=== PATIENT | female | born 1955 | race Caucasian/White ===

== ENCOUNTER → 2019-07-07 | Outpatient (CLI) | payer BC ==
--- NOTE | 2019-07-08 13:35 | MM ---
Reason for exam: screening (asymptomatic). Last mammogram was performed 1 year and 10 months ago. History: Patient is postmenopausal. Physical Findings: A clinical breast exam by your physician is recommended on an annual basis and results should be correlated with mammographic findings. MG Screening Mammo w CAD Bilateral CC and MLO view(s) were taken. Prior study comparison: August 26, 2017, mammogram, performed at [facility]. January 08, 2014, mammogram, performed at [facility]. The breast tissue is heterogeneously dense. This may lower the sensitivity of mammography. No suspicious abnormality in the right breast. Left upper outer quadrant architectural distortion 5-5.5cm from nipple. ASSESSMENT: Incomplete: need additional imaging evaluation, BI-RAD 0 RECOMMENDATION: Special view mammogram of the left breast. If lesion persists on supplemental views, image directed ultrasound is recommended. [facility] will attempt to contact patient to return for supplemental views and ultrasound if indicated.
== END | disposition home or self-care (01) ==
LOC: RADMAMWWP 14:24
PROVIDERS: ATTEND Family Medicine
DX: Z12.31 Encounter for screening mammogram for malignant neoplasm of breast (principal)
CPT/HCPCS: 77067

== ENCOUNTER → 2022-07-13 | Outpatient (CLI) | payer BC ==
--- NOTE | 2022-07-13 14:04 | CTL ---
EXAMINATION TYPE: CT Low Dose Lung DATE OF EXAM ORDERED: 07/13/2022 HISTORY: Lung cancer screening TECHNIQUE: CT DLP: 52.[address] CTDI: 1.6 mGy Automated exposure control for dose reduction was used. Low-dose technique was utilized without contr ast. Low dose computed tomography scan was performed through the chest at 1 mm thick sections and rec onstructed images in multiple planes at 1 mm and 5 mm thick sections. COMPARISON: None CT DIAGNOSTIC QUALITY: Satisfactory Findings: There are marked emphysematous changes with marked honeycombing throughout the lungs predominantly in the lower lobes and subpleural parenchymal regions. There is no evidence of acute cardiopulmonary di sease with airspace consolidation. There is marked traction bronchiectasis. There are no suspicious l joaquín masses or nodules. There is no pleural effusion or pneumothorax. The great vessels chest are normal there is no mediastinal, hilar or axillary adenopathy. Limited evaluation of the upper abdomen reveals no gross abnormalities. No focal osseous lesions are seen. IMPRESSION: 1. Lung RADS category 1 negative. No suspicious lung masses or nodules. Continue routine screening ye ila intervals. 2. Marked emphysematous changes with marked honeycomb lung and bronchiectasis. 3. No acute cardiopulmonary disease.
== END | disposition home or self-care (01) ==
LOC: RADCTMAIN 12:41
PROVIDERS: ATTEND Family Medicine
DX: Z12.2 Encounter for screening for malignant neoplasm of respiratory organs (principal); J43.9 Emphysema, unspecified; J47.9 Bronchiectasis, uncomplicated; F17.210 Nicotine dependence, cigarettes, uncomplicated
CPT/HCPCS: 71271

== ENCOUNTER 2022-09-12 10:48 | Day surgery (SDC) | payer BC ==
[2022-09-10 18:11] VITALS: BMI 19.1
[~2022-09-12 10:48] MED LIST: LACTATED RINGERS 1,000 ML IV SCH; LIDOCAINE 1% (10MG/ML) FOR IV START INTRADERMA PRN
[2022-09-12 11:05] VITALS: RESP 16
[2022-09-12] MEDS ORDERED: PROPOFOL 10 MG/ML 20 ML VIAL IV ONE (12:02)
[2022-09-12] MEDS ORDERED: LIDOCAINE 2% INJ 20 MG/ML (2 ML VIAL) ONE (12:02)
--- NOTE | 2022-09-12 12:14 | P.PCN ---
Date of Procedure: 09/12/22 Procedure(s) Performed: BRIEF HISTORY: Patient is a 66-year-old, pleasant, white female scheduled for an upper endoscopy as a part of evaluation of severe epigastric pain and heartburn for the last 2 months duration. She lost 15 pounds since onset of the symptoms.. PROCEDURE PERFORMED: Esophagogastroduodenoscopy with biopsy. PREOPERATIVE DIAGNOSIS: Severe epigastric pain/heartburn and weight loss of 2 months. IV sedation per anesthesia. PROCEDURE: After informed consent was obtained, the patient was brought into the endoscopy unit. IV sedation was administered by Anesthesia under continuous monitoring. Initially the Olympus GIF-140 video endoscope was inserted into the mouth. Esophagus intubated without any difficulty. It was gradually advanced into the stomach and duodenum and carefully examined. The bulb and the second part of the duodenum appeared normal. Biopsies were done from the duodenum to rule out celiac disease. The scope at this time was withdrawn to the stomach, adequately insufflated with air, and upon careful examination, mucosa of the antrum, and mild diffuse gastritis and biopsies were done from this area. Mucosa of the body, cardia and the fundus appeared normal. The scope was then withdrawn into the esophagus. Small hiatal hernia noted. The GE junction was located at 39 cm from the incisors. There were linear erosions in the distal esophagus along with once a fissure ulceration consistent with LA grade C reflux esophagitis. The rest of esophagus appeared normal and the patient tolerated the procedure well. IMPRESSION: 1. Linear erosions and ulcerations in the distal esophagus consistent with LA grade C reflux esophagitis. 2. Small hiatal hernia 3.. Mild antral gastritis RECOMMENDATIONS: The findings of this examination were discussed with the as well as a family. She was advised to follow with the biopsy results. In the meantime recommend that she increase omeprazole to 20 mg twice daily and follow antireflux measures. She will be seen in office in 6 weeks
[2022-09-12 12:45] VITALS: BP 108/70; PULSE 110
== END 2022-09-12 13:07 | disposition home or self-care (01) ==
LOC: ORWHC2ENDO 10:48
PROVIDERS: ATTEND Internal Medicine Gastroenterology
DX: K29.50 Unspecified chronic gastritis without bleeding (principal); K21.9 Gastro-esophageal reflux disease without esophagitis; K22.10 Ulcer of esophagus without bleeding; K44.9 Diaphragmatic hernia without obstruction or gangrene; I10 Essential (primary) hypertension; E78.5 Hyperlipidemia, unspecified; J44.9 Chronic obstructive pulmonary disease, unspecified; F17.210 Nicotine dependence, cigarettes, uncomplicated; E07.9 Disorder of thyroid, unspecified; Z79.899 Other long term (current) drug therapy; Z79.890 Hormone replacement therapy; Z98.51 Tubal ligation status
CPT/HCPCS: 88305; 88312; 43239; J2704; J2001

== ENCOUNTER 2023-03-02 15:39 | Inpatient (IN) | payer BC, MEDICARE ==
[2023-03-02] MEDS ORDERED: SODIUM CHLORIDE 0.9% 1,000 ML IV STA ×2 (16:17→18:13)
[2023-03-02] MEDS ORDERED: ONDANSETRON 4 MG/2 ML VIAL IVP STA (16:17)
[2023-03-02] MEDS ORDERED: PANTOPRAZOLE 40 MG/10 ML VIAL IVP STA (16:17)
[2023-03-02] MEDS ORDERED: DICYCLOMINE 10 MG CAP PO STA (16:17)
[2023-03-02 17:12] LABS: Basophils % (A) 0 %; Eosinophils # (A) 0.1 k/uL (0-0.7); Eosinophils % (A) 2 %; HCT 41.5 % (34.0-46.0); HGB 13.7 gm/dL (11.4-16.0); Lymphocytes # (A) 1.5 k/uL (1.0-4.8); Lymphocytes % (A) 22 %; MCH 30.6 pg (25.0-35.0); MCV 92.9 fL (80.0-100.0); Mean Platelet Volume 8.6; Monocytes # (A) 0.3 k/uL (0-1.0); Monocytes % (A) 5 %; Neutrophils # (A) 4.9 k/uL (1.3-7.7); Neutrophils % (A) 70 %; Platelet Count 253 k/uL (150-450); RBC 4.46 m/uL (3.80-5.40); RDW 13.9 % (11.5-15.5); WBC 6.9 k/uL (3.8-10.6)
[2023-03-02 17:17] LABS: ALT 29 U/L (4-34); AST 37 U/L (14-36); African American GFR (CKD) >90 (>60 ml/min/1.73 sqM); Albumin 3.3 g/dL (3.5-5.0); Alkaline Phosphatase 54 U/L (38-126); Amylase 34 U/L (30-110); Anion Gap 9 mmol/L; Blood Urea Nitrogen 9 mg/dL (7-17); Calcium 8.8 mg/dL (8.4-10.2); Carbon Dioxide 24 mmol/L (22-30); Chloride 103 mmol/L (98-107); Glucose 133 mg/dL (74-99); Lipase 67 U/L (23-300); Non-African American GFR(CKD) >90 (>60 ml/min/1.73 sqM); Potassium 3.9 mmol/L (3.5-5.1); Sodium 136 mmol/L (137-145); Total Bilirubin 0.4 mg/dL (0.2-1.3); Total Protein 5.8 g/dL (6.3-8.2)
--- NOTE | 2023-03-02 17:48 | ED ---
General Adult HPI - General Chief complaint: Abdominal Pain Stated complaint: bloating losing weight Time Seen by Provider: 03/02/23 16:08 Source: patient, RN notes reviewed, old records reviewed Mode of arrival: ambulatory Limitations: no limitations - History of Present Illness Initial comments: Patient is a 67-year-old female who presents emergency Department complaining of chronic abdominal pain. Patient was noticed abdominal bloating and discomfort on and off for the last few months. Has a history of daily alcohol use. Has a history of acid reflux and GERD. Has a history of hypertension as well. She is uncertain what is causing her symptoms. Decided to come get evaluated today. Does have a scheduled colonoscopy in the upcoming weeks. Denies any focal abdominal discomfort. No history of abdominal surgeries other than tubal ligation. Denies any diarrhea or constipation. Denies any urinary complaints. Nurses mild nausea but no emesis. Presents for further evaluation this time. Has no fevers or chills.Patient's symptoms while they have been worsening over the last few weeks, acutely more intense over the last few days. Endorses abdominal bloating that is worse of the last few days. Decreased flatulence. No emesis. No diarrhea. No significant bowel movements. - Related Data Home Medications Medication Instructions Recorded Confirmed Atorvastatin [Lipitor] 10 mg PO HS 09/10/22 09/12/22 Levothyroxine Sodium [Synthroid] 50 mcg PO DAILY 09/10/22 09/12/22 Olmesartan Medoxomil 20 mg PO HS 09/10/22 09/12/22 Temazepam [Restoril] 15 mg PO HS PRN 09/10/22 09/12/22 Lansoprazole [Prevacid] 30 mg PO BID 03/02/23 03/02/23 Allergies Allergy/AdvReac Type Severity Reaction Status Date / Time clindamycin Allergy joint pain Verified 03/02/23 18:13 Review of Systems ROS Statement: Those systems with pertinent positive or pertinent negative responses have been documented in the HPI. Review of Systems: CONST: Denies fever EYES: Denies blurry vision ENT: Denies nasal congestion C/V: Denies Chest pain RESP: Denies shortness of breath GI: Endorses abdominal bloating : Denies dysuria SKIN: Denies rash. MSK: Denies joint pain. NEURO: Denies headache ROS Other: All systems not noted in ROS Statement are negative. Past Medical History Past Medical History: GERD/Reflux, Hyperlipidemia, Hypertension, Thyroid Disord er Additional Past Medical History / Comment(s): Raynauds History of Any Multi-Drug Resistant Organisms: None Reported Additional Past Surgical History / Comment(s): COLONOSCOPY Past Anesthesia/Blood Transfusion Reactions: No Reported Reaction Past Psychological History: No Psychological Hx Reported Smoking Status: Current every day smoker Past Alcohol Use History: Daily Past Drug Use History: None Reported - Past Family History Father Family Medical History: Cancer Mother Family Medical History: Cancer General Exam - General Exam Comments Initial Comments: General: Appears in no acute distress. HEAD: Normal with no signs of head trauma. EYES: PERRLA, EOMI, conjunctiva normal, no discharge. ENT: Hearing grossly intact, normal oropharynx. RESPIRATORY: Clear breath sounds bilaterally. No wheezes, rales, or rhonchi. C/V: Regular rate and rhythm. S1 and S2 auscultated, no edema, peripheral pulses 2+ and intact throughout ABD: Abd is soft, mild diffuse tenderness to palpation., nondistended. No obvious focal tenderness to palpation. No guarding. No peritoneal signs. No rebound tenderness. EXT: Normal range of motion, no obvious deformity SKIN: No rashes or lesions observed on exposed skin. NEURO: Alert and oriented x 4. Limitations: no limitations Course Vital Signs 03/02/23 03/02/23 03/02/23 15:41 16:32 17:42 Temperature 97.6 F Pulse Rate 71 91 87 Respiratory 20 18 18 Rate Blood Pressure 126/74 126/71 126/77 O2 Sat by Pulse 94 L 94 L 97 Oximetry Medical Decision Making - Medical Decision Making Was pt. sent in by a medical professional or institution (, PA, PLATE SHEAR OPERATOR, urgent care, hospital, or group home...) When possible be specific @ -No Did you speak to anyone other than the patient for history (EMS, parent, family, police, friend...)? What history was obtained from this source @ -No Did you review nursing and triage notes (agree or disagree)? Why? @ -I reviewed and agree with nursing and triage notes Were old charts reviewed (outside hosp., previous admission, EMS record, old EKG, old radiological studies, urgent care reports/EKG's, group home records)? Report findings @ -Old charts reviewed Differential Diagnosis (chest pain, altered mental status, abdominal pain women, abdominal pain men, vaginal bleeding, weakness, fever, dyspnea, syncope, headache, dizziness, GI bleed, back pain, seizure, CVA, palpatations, mental health, musculoskeletal)? @ -Differential Abdominal Pain Women: Appendicitis, Cholecystitis, diverticulosis, ischemic bowel, pancreatitis, hepatitis, UTI, gastroenteritis, AAA, incarcerated hernia, bowel obstruction, constipation, inflammatory bowel, hepatitis, peptic ulcer disease, splenic infarction, perforated viscus, vulvitis, ovarian torsion, PID, kidney stone, placenta abruption, this is not meant to be an all-inclusive list EKG interpreted by me (3pts min.). @ -None done X-rays interpreted by me (1pt min.). @ -None done CT interpreted by me (1pt min.). @ -CT imaging reveals findings concerning for a small bowel obstruction. U/S interpreted by me (1pt. min.). @ -None done What testing was considered but not performed or refused? (CT, X-rays, U/S, labs)? Why? @ -None What meds were considered but not given or refused? Why? @ -None Did you discuss the management of the patient with other professionals (professionals i.e. , PA, PLATE SHEAR OPERATOR, lab, RT, psych nurse, social economist, combination worker, teacher, classification officer, case worker)? Give summary @ -I spoke with Dr. Shaffer who is on-call for surgery was in agreement with the plan and accepted the admission. Patient made nothing by mouth. He requested I admit the patient under Dr. Maddox who will be back on service in the morning. Was smoking cessation discussed for >3mins.? @ -No Was critical care preformed (if so, how long)? @ -No Were there social determinants of health that impacted care today? How? (Homelessness, low income, unemployed, alcoholism, drug addiction, transportation, low edu. Level, literacy, decrease access to med. care, [facility], rehab)? @ -No Was there de-escalation of care discussed even if they declined (Discuss DNR or withdrawal of care, Hospice)? DNR status @ -No What co-morbidities impacted this encounter? (DM, HTN, Smoking, COPD, CAD, Cancer, CVA, ARF, Chemo, Hep., AIDS, mental health diagnosis, sleep apnea, morbid obesity)? @ -None Was patient admitted / discharged? Hospital course, mention meds given and route, prescriptions, significant lab abnormalities, going to OR and other pertinent info. @ -Based on the patient's presentation and physical exam, presents with abdominal pain for multiple weeks to months of unknown etiology. Patient's concerned for possible small bowel obstruction is requesting CT imaging. We will obtain CT as well as abdominal laboratory studies. Vital signs within acceptable limits. She was in agreement this plan. Patient will be symptomatically treated with IV Zofran, Protonix, fluids as well as a dose of Bentyl. CT shows small bowel obstruction. Labs within acceptable limits. I discussed results of the patient. NG tube will be placed. Blood cultures obtained and patient placed on IV Zosyn empirically. Patient was in agreement this plan. She'll be admitted. I spoke with Dr. Shaffer who is on-call for surgery was in agreement with the plan and accepted the admission. Patient made nothing by mouth. He requested I admit the patient under Dr. Maddox who will be back on service in the morning. Undiagnosed new problem with uncertain prognosis? @ -No Drug Therapy requiring intensive monitoring for toxicity (Heparin, Nitro, Insulin, Cardizem)? @ -No Were any procedures done? @ -No Diagnosis/symptom? @ -Small bowel obstruction Acute, or Chronic, or Acute on Chronic? @ -Acute Uncomplicated (without systemic symptoms) or Complicated (systemic symptoms)? @ -Complicated Side effects of treatment? @ -none Exacerbation, Progression, or Severe Exacerbation] @ -no Poses a threat to life or bodily function? @ -Yes - Lab Data Result diagrams: 03/02/23 16:22 03/02/23 16:22 Lab Results 03/02/23 03/02/23 03/02/23 Range/Units 16:22 16:22 16:22 WBC 6.9 (3.8-10.6) k/uL RBC 4.46 (3.80-5.40) m/uL Hgb 13.7 (11.4-16.0) gm/dL Hct 41.5 (34.0-46.0) % MCV 92.9 (80.0-100.0) fL MCH 30.6 (25.0-35.0) pg MCHC 33.0 (31.0-37.0) g/dL RDW 13.9 (11.5-15.5) % Plt Count 253 (150-450) k/uL MPV 8.6 Neutrophils % 70 % Lymphocytes % 22 % Monocytes % 5 % Eosinophils % 2 % Basophils % 0 % Neutrophils # 4.9 (1.3-7.7) k/uL Lymphocytes # 1.5 (1.0-4.8) k/uL Monocytes # 0.3 (0-1.0) k/uL Eosinophils # 0.1 (0-0.7) k/uL Basophils # 0.0 (0-0.2) k/uL Sodium 136 L (137-145) mmol/L Potassium 3.9 (3.5-5.1) mmol/L Chloride 103 (98-107) mmol/L Carbon Dioxide 24 (22-30) mmol/L Anion Gap 9 mmol/L BUN 9 (7-17) mg/dL Creatinine 0.35 L (0.52-1.04) mg/dL Est GFR (CKD-EPI)AfAm >90 (>60 ml/min/1.73 sqM) Est GFR (CKD-EPI)NonAf >90 (>60 ml/min/1.73 sqM) Glucose 133 H (74-99) mg/dL Plasma Lactic Acid Juan Ramon 1.3 (0.7-2.0) mmol/L Calcium 8.8 (8.4-10.2) mg/dL Total Bilirubin 0.4 (0.2-1.3) mg/dL AST 37 H (14-36) U/L ALT 29 (4-34) U/L Alkaline Phosphatase 54 (38-126) U/L Total Protein 5.8 L (6.3-8.2) g/dL Albumin 3.3 L (3.5-5.0) g/dL Amylase 34 (30-110) U/L Lipase 67 (23-300) U/L Disposition Clinical Impression: Small bowel obstruction Disposition: ADMITTED IP TO THIS [facility] Condition: Stable Referrals: Irving Villalobos DO [Primary Care Provider] - 1-2 days Time of Disposition: 18:08
--- NOTE | 2023-03-02 17:51 | CT ---
EXAMINATION TYPE: CT abdomen pelvis w con DATE OF EXAM: 03/02/2023 COMPARISON: None HISTORY: Unexplained weight loss x6mo. RLQ abdominal pain, pt states when she sits up it bulges out i n the RLQ. Constipation, bloating, diarrhea. CT DLP: 411.6 mGycm Automated exposure control for dose reduction was used. TECHNIQUE: Helical acquisition of images was performed from the lung bases through the pelvis. CONTRAST: Performed without Oral Contrast and with IV Contrast, patient injected with 100 ml mL of Isovue 300. FINDINGS: There is marked honeycombing of the bilateral lower lobes consistent with severe UIP/interstitial ashish g disease. The gallbladder is normal is no wall thickening, pericholecystic fluid, distention or gallstones. There is no focal mass or organomegaly involving the liver, pancreas, spleen or adrenal glands. There is no solid renal mass or hydronephrosis. The caliber the abdominal aorta is normal And there are multiple markedly dilated air and fluid-filled loops of small bowel small bowel obstruc tion. There is marked thickening of the distal small bowel and terminal ileum. There is no free intraperitoneal air or fluid. The osseous structures are intact. IMPRESSION: 1. Marked diffuse thickening of the terminal ileum and distal small bowel resulting in a distal small bowel obstruction. 2. Marked interstitial lung disease involving the visualized lung bases.
[2023-03-02] MEDS ORDERED: ONDANSETRON 4 MG/2 ML VIAL IVP PRN (18:14)
[2023-03-02] MEDS ORDERED: NALOXONE 0.4 MG/ML 1 ML VIAL IV PRN (18:14)
[2023-03-02] MEDS ORDERED: MORPHINE SULFATE 2 MG/ML SYRINGE IV PRN (18:14)
[2023-03-02 18:24] LABS: Appearance,Urine Cloudy (Clear); Bacteria,Urine Occasional /hpf; Bilirubin,Urine Negative (Negative); Blood,Urine Negative (Negative); Calcium Oxalate Crystals,Urine Occasional /hpf; Color,Urine Light Yellow; Glucose,Urine (UA) Negative (Negative); Ketones,Urine Negative (Negative); Leukocyte Esterase,Urine Moderate (Negative); Mucus,Urine Rare /hpf; Nitrite,Urine Negative (Negative); Protein,Urine Negative (Negative); RBC,Urine 15 /hpf (0-5); Squamous Epithelial Cell,Urine 3 /hpf (0-4); Urobilinogen,Urine <2.0 mg/dL (<2.0); WBC,Urine 24 /hpf (0-5)
[2023-03-02] MEDS: PIPERACILLIN-TAZOBACTAM 3.375 GM in SODIUM CHLORIDE 0.9% 100 ML IVPB SCH ×2 (18:39→23:27)
--- NOTE | 2023-03-02 18:55 | P.GSHP ---
History of Present Illness H&P Date: 03/02/23 (Surgery) Chief Complaint: Abdominal pain and distention Present illness: Patient is a 67-year-old female who is relatively healthy and has been having abdominal pain for couple weeks. She also has weight loss since June. Her pain has been progressively gotten worse and she was thrown up today. She had been constipated for the past couple of days but today she had diarrhea. She states passing some gas. She is also due for a colonoscopy her last one was over 10 years ago and was normal according to her. Apparently she hasn't scheduled in 2 weeks. She states that she sometimes gets a bulge in the left inguinal area without any pain. Her medical history is significant for hypertension, GERD, hyperlipidemia Surgical history indicates umbilical hernia repair as a toddler and a tubal ligation which was supposedly done laparoscopically. She is a smoker but the rest of social history isn't significant. Review of systems: 10 systems reviewed all negative except for what was mentio elena in HPI. Physical exam: Patient is alert and oriented 3 in no apparent distress. Vitals are normal and stable Head and neck: Atraumatic, sclerae nonicteric. Heart: S1-S2 Lungs: Clear bilateral to auscultation except for scattered coarse crackles Abdomen: Moderately distended. Uncomfortable to deep palpation but no tenderness no guarding and no sign of peritonitis. No hernias palpable. Extremities: No obvious deformity or edema. Neurologic: No lateralizing symptoms Psychiatric: Alert and oriented 3, good judgment and affect. Plan: Computed tomography scan looks impressive for small bowel obstruction. There is thickening of distal small bowel and diffuse distention. Could not appreciate any inguinal or femoral hernias. Admit to surgical service. Nothing by mouth, NG tube, IV fluids. Chemical DVT prophylaxis and SCDs. The computed tomography scan does not seem like colonic obstruction however patient is due for a colonoscopy and considering doing recent weight loss this seems even more pressing. Chin may need surgical management if conservative management does not resolve the issue. Past Medical History Past Medical History: GERD/Reflux, Hyperlipidemia, Hypertension, Thyroid Disorder Additional Past Medical History / Comment(s): Raynauds History of Any Multi-Drug Resistant Organisms: None Reported Additional Past Surgical History / Comment(s): COLONOSCOPY Past Anesthesia/Blood Transfusion Reactions: No Reported Reaction Past Psychological History: No Psychological Hx Reported Smoking Status: Current every day smoker Past Alcohol Use History: Daily Past Drug Use History: None Reported - Past Family History Father Family Medical History: Cancer Mother Family Medical History: Cancer Medications and Allergies Home Medications Medication Instructions Recorded Confirmed Type Atorvastatin [Lipitor] 10 mg PO HS 09/10/22 03/02/23 History Levothyroxine Sodium [Synthroid] 50 mcg PO DAILY 09/10/22 03/02/23 History Olmesartan Medoxomil 20 mg PO HS 09/10/22 03/02/23 History Temazepam [Restoril] 15 mg PO HS PRN 09/10/22 03/02/23 History Lansoprazole [Prevacid] 30 mg PO BID 03/02/23 03/02/23 History Allergies Allergy/AdvReac Type Severity Reaction Status Date / Time clindamycin Allergy joint pain Verified 03/02/23 18:13 Surgical - Exam Vital Signs Temp Pulse Resp BP Pulse Ox 97.6 F 71 20 126/74 94 L 03/02/23 15:41 03/02/23 15:41 03/02/23 15:41 03/02/23 15:41 03/02/23 15:41 Results - Labs 03/02/23 16:22 03/02/23 16:22 Abnormal Lab Results - Last 24 Hours (Table) 03/02/23 03/02/23 Range/Units 16:22 16:22 Sodium 136 L (137-145) mmol/L Creatinine 0.35 L (0.52-1.04) mg/dL Glucose 133 H (74-99) mg/dL AST 37 H (14-36) U/L Total Protein 5.8 L (6.3-8.2) g/dL Albumin 3.3 L (3.5-5.0) g/dL Urine Appearance Cloudy H (Clear) Ur Specific [place] 1.040 H (1.001-1.035) Ur Leukocyte Esterase Moderate H (Negative) Urine RBC 15 H (0-5) /hpf Urine WBC 24 H (0-5) /hpf Calcium Oxalate Crystal Occasional H (None) /hpf Urine Bacteria Occasional H (None) /hpf Urine Mucus Rare H (None) /hpf Diabetes panel 03/02/23 Range/Units 16:22 Sodium 136 L (137-145) mmol/L Potassium 3.9 (3.5-5.1) mmol/L Chloride 103 (98-107) mmol/L Carbon Dioxide 24 (22-30) mmol/L BUN 9 (7-17) mg/dL Creatinine 0.35 L (0.52-1.04) mg/dL Glucose 133 H (74-99) mg/dL Calcium 8.8 (8.4-10.2) mg/dL AST 37 H (14-36) U/L ALT 29 (4-34) U/L Alkaline Phosphatase 54 (38-126) U/L Total Protein 5.8 L (6.3-8.2) g/dL Albumin 3.3 L (3.5-5.0) g/dL Calcium panel 03/02/23 Range/Units 16:22 Calcium 8.8 (8.4-10.2) mg/dL Albumin 3.3 L (3.5-5.0) g/dL Pituitary panel 03/02/23 Range/Units 16:22 Sodium 136 L (137-145) mmol/L Potassium 3.9 (3.5-5.1) mmol/L Chloride 103 (98-107) mmol/L Carbon Dioxide 24 (22-30) mmol/L BUN 9 (7-17) mg/dL Creatinine 0.35 L (0.52-1.04) mg/dL Glucose 133 H (74-99) mg/dL Calcium 8.8 (8.4-10.2) mg/dL Adrenal panel 03/02/23 Range/Units 16:22 Sodium 136 L (137-145) mmol/L Potassium 3.9 (3.5-5.1) mmol/L Chloride 103 (98-107) mmol/L Carbon Dioxide 24 (22-30) mmol/L BUN 9 (7-17) mg/dL Creatinine 0.35 L (0.52-1.04) mg/dL Glucose 133 H (74-99) mg/dL Calcium 8.8 (8.4-10.2) mg/dL Total Bilirubin 0.4 (0.2-1.3) mg/dL AST 37 H (14-36) U/L ALT 29 (4-34) U/L Alkaline Phosphatase 54 (38-126) U/L Total Protein 5.8 L (6.3-8.2) g/dL Albumin 3.3 L (3.5-5.0) g/dL
--- NOTE | 2023-03-02 18:59 | XR ---
EXAMINATION TYPE: XR chest 1V confirm line plcmt DATE OF EXAM: 03/02/2023 6:30 PM CLINICAL INDICATION:Female, 67 years old with history of NG tube placement; [facility] COMPARISON: 03/12/2023 CT TECHNIQUE: XR chest 1V confirm line plcmt Frontal view of the chest. FINDINGS: Lungs/Pleura: Bibasilar airspace and interstitial opacities. There is no evidence of pleural effusion , focal consolidation, or pneumothorax. Pulmonary vascularity: Unremarkable. Heart/mediastinum: Cardiomediastinal silhouette is unremarkable. Musculoskeletal: No acute osseous pathology. Other findings: None Lines/Tubes: Nasogastric tube with its distal tip and side-port projecting under the diaphragm. IMPRESSION: Bibasilar fibrotic change and/or developing airspace disease with superimposed COPD. Nasogastric tube in appropriate position.
[2023-03-02] MEDS: HEPARIN SODIUM,PORCINE 5,000 UNIT/ML 1 ML VIAL SQ SCH (20:49)
[2023-03-03 04:59] LABS: Basophils % (A) 0 %; Eosinophils # (A) 0.1 k/uL (0-0.7); Eosinophils % (A) 3 %; HCT 36.8 % (34.0-46.0); HGB 12.3 gm/dL (11.4-16.0); Lymphocytes # (A) 1.6 k/uL (1.0-4.8); Lymphocytes % (A) 31 %; MCH 31.8 pg (25.0-35.0); MCHC 33.5 g/dL (31.0-37.0); Mean Platelet Volume 7.8; Monocytes # (A) 0.3 k/uL (0-1.0); Monocytes % (A) 6 %; Neutrophils % (A) 59 %; Platelet Count 215 k/uL (150-450); RBC 3.87 m/uL (3.80-5.40); RDW 13.5 % (11.5-15.5); WBC 5.1 k/uL (3.8-10.6)
[2023-03-03 05:13] LABS: African American GFR (CKD) >90 (>60 ml/min/1.73 sqM); Anion Gap 6 mmol/L; Blood Urea Nitrogen 6 mg/dL (7-17); Calcium 8.3 mg/dL (8.4-10.2); Carbon Dioxide 24 mmol/L (22-30); Chloride 109 mmol/L (98-107); Glucose 89 mg/dL (74-99); Non-African American GFR(CKD) >90 (>60 ml/min/1.73 sqM); Potassium 3.5 mmol/L (3.5-5.1); Sodium 139 mmol/L (137-145)
[2023-03-03] MEDS: HEPARIN SODIUM,PORCINE 5,000 UNIT/ML 1 ML VIAL SQ SCH ×2 (07:03→20:00)
[2023-03-03] MEDS: PIPERACILLIN-TAZOBACTAM 3.375 GM in SODIUM CHLORIDE 0.9% 100 ML IVPB SCH ×2 (07:03→15:59)
[2023-03-03] MEDS: PANTOPRAZOLE 40 MG/10 ML VIAL IV SCH (08:01)
--- NOTE | 2023-03-03 09:08 | P.PN ---
Subjective Progress Note Date: 03/03/23 Principal diagnosis: Small bowel obstruction 67-year-old female who provides several month history of increasing abdominal pain and bloating. States she has no symptoms when she is not eating. Has lost 30 pounds over this time. Had a recent EGD by GI showing gastritis. She is scheduled for colonoscopy in a few weeks. CAT scan reviewed and shows significant inflammation of the wall of the terminal ileum. Ironically the patient's has Crohn's and sees GI for this. Overnight patient says she is comfortable. She is hungry. She is passing flatus and having small bowel months. Objective - Vital Signs Vital signs: Vital Signs Temp 97.5 F L 03/03/23 07:24 Pulse 83 03/03/23 07:24 Resp 18 03/03/23 07:24 BP 128/79 03/03/23 07:24 Pulse Ox 93 L 03/03/23 07:24 FiO2 Intake & Output 03/02/23 03/03/23 03/03/23 19:59 06:59 18:59 Intake Total Output Total Balance Weight Intake: Intake, IV Titration Amount Piperacillin-Tazobactam 3 .375 gm In Sodium Chloride 0.9% 100 ml @ 25 mls/hr IVPB Q8HR [facility] Rx# :[id number] Sodium Chloride 0.9% 1, 000 ml @ 100 mls/hr IV . Q10H [facility] Rx#:[id number] Output: Urine Other: Voiding Method Toilet - Exam Abdomen: Soft, nondistended, minimal tenderness, no masses - Labs CBC & Chem 7: 03/03/23 04:38 03/03/23 04:38 Labs: Abnormal Lab Results - Last 24 Hours (Table) 03/02/23 03/02/23 03/03/23 Range/Units 16:22 16:22 04:38 Sodium 136 L (137-145) mmol/L Chloride 109 H (98-107) mmol/L BUN 6 L (7-17) mg/dL Creatinine 0.35 L 0.48 L (0.52-1.04) mg/dL Glucose 133 H (74-99) mg/dL Calcium 8.3 L (8.4-10.2) mg/dL AST 37 H (14-36) U/L Total Protein 5.8 L (6.3-8.2) g/dL Albumin 3.3 L (3.5-5.0) g/dL Urine Appearance Cloudy H (Clear) Ur Specific [place] 1.040 H (1.001-1.035) Ur Leukocyte Esterase Moderate H (Negative) Urine RBC 15 H (0-5) /hpf Urine WBC 24 H (0-5) /hpf Calcium Oxalate Crystal Occasional H (None) /hpf Urine Bacteria Occasional H (None) /hpf Urine Mucus Rare H (None) /hpf Assessment and Plan (1) Enteritis Narrative/Plan: 67-year-old female with enteritis and associated small bowel obstruction. Etiology unclear but certainly inflammatory bowel disease in the form of Crohn's disease is most likely at present. We'll order small bowel series for tomorrow. We'll discuss with GI tomorrow. Hold steroids until after small bowel series performed. May have clears. Current Visit: Yes Status: Acute Code(s): K52.9 - NONINFECTIVE GASTROENTERITIS AND COLITIS, UNSPECIFIED SNOMED Code(s): 17392442
[2023-03-03] MEDS: ATORVASTATIN 10 MG TAB PO SCH (20:00)
[2023-03-03] MEDS: TEMAZEPAM 15 MG CAP PO PRN (22:08)
[2023-03-04] MEDS: PIPERACILLIN-TAZOBACTAM 3.375 GM in SODIUM CHLORIDE 0.9% 100 ML IVPB SCH ×5 (07:18→23:20)
[2023-03-04] MEDS: HEPARIN SODIUM,PORCINE 5,000 UNIT/ML 1 ML VIAL SQ SCH ×2 (07:19→20:00)
[2023-03-04] MEDS: LEVOTHYROXINE 50 MCG TAB PO SCH (07:36)
[2023-03-04] MEDS: PANTOPRAZOLE 40 MG/10 ML VIAL IV SCH (09:17)
--- NOTE | 2023-03-04 10:01 | XR ---
EXAMINATION TYPE: XR KUB DATE OF EXAM: 03/04/2023 9:12 AM CLINICAL INDICATION:Female, 67 years old with history of Evaluate enteritis, FL canceled, CT instead; [facility] COMPARISON: CT 03/02/2023. TECHNIQUE: 3 frontal views of the abdomen after ingestion of oral contrast. Exam was then decided to cancel then evaluated with CT enterography. FINDINGS: Redemonstration of dilated loops of bowel predominantly in the right abdomen. No evidence f or extravasation. Bowel gas pattern is nonspecific. Multilevel degeneration changes throughout the sp ine. IMPRESSION: Nonspecific bowel gas pattern without radiographic evidence for acute process. Please see dedicated s ubsequent CT enterography for additional findings.
[2023-03-04] MEDS: BARIUM SULFATE 0.1% PO PRN ×3 (13:24→14:10)
--- NOTE | 2023-03-04 13:34 | P.PN ---
Subjective Progress Note Date: 03/04/23 CHIEF COMPLAINT: Small bowel obstruction HISTORY OF PRESENT ILLNESS: Patient is complaining of some lower abdominal pain. She is having flatus and has started bowel movements after the Gastrografin. Small bowel follow-through was canceled. Patient scheduled for CT enterography. She reports some nausea with the Gastrografin. Denies any vomiting. Afebrile. No new labs. PHYSICAL EXAM: VITAL SIGNS: Reviewed. GENERAL: Well-developed in no acute distress. ABDOMEN: Soft. Nondistended. mild lower abdominal tenderness NEUROLOGIC: Alert and oriented. Cranial nerves II through XII grossly intact. ASSESSMENT: 1. Enteritis and associated Small bowel obstruction. Etiology unclear but certainly inflammatory bowel disease in the form of Crohn's disease is most likely at present. PLAN: -Patient scheduled for CT enterography -Continue clear liquid diet -Continue antiemetics and pain medicine as needed -Continue antibiotics -Further recommendations forthcoming per surgeon Physician Roller note has been reviewed by physician. Signing provider agrees with the documented findings, assessment, and plan of care. I have personally seen and examined the patient, reviewed the GINNER HELPER /PAs history, exam and MDM and agree with the assessment and plan as written. Based on total visit time, I have performed more than 50% of the visit. As above: Spoke the radiologist morning and again this afternoon. Small bowel series changed to CT enterography given the concern for possible inflammatory bowel disease. On the CAT scan from today there is an area of narrowing involving the distal small bowel. The patient has a few small serpiginous areas of contrast thought to likely represent fistulization. No obstruction to the flow of liquid contrast on CAT scan. CAT scan findings reviewed with the patient and her family. Case discussed with her gastrin row despite foam. We'll begin IV Solu-Medrol. Resume full liquid diet. Possible discharge tomorrow on steroids if improved. Objective - Vital Signs Vital signs: Vital Signs Temp 97.6 F 03/04/23 12:57 Pulse 82 03/04/23 12:57 Resp 16 03/04/23 12:57 BP 124/82 03/04/23 12:57 Pulse Ox 95 03/04/23 12:57 FiO2 Intake & Output 03/03/23 03/04/23 03/04/23 18:59 06:59 18:59 Intake Total 700 700 Balance 700 700 Intake: Intake, IV Titration 700 100 Amount Piperacillin-Tazobactam 3 100 .375 gm In Sodium Chloride 0.9% 100 ml @ 25 mls/hr IVPB Q8HR [facility] Rx# :[id number] Sodium Chloride 0.9% 1, 700 000 ml @ 100 mls/hr IV . Q10H [facility] Rx#:[id number] Oral 600 Other: Voiding Method Toilet Toilet Toilet # Voids 2 3 - Labs CBC & Chem 7: 03/03/23 04:38 03/03/23 04:38 Labs: Microbiology - Last 24 Hours (Table) 03/02/23 18:30 Blood Culture - Preliminary Blood 03/02/23 18:15 Blood Culture - Preliminary Blood
[2023-03-04 15:17] VITALS: BMI 16.9
--- NOTE | 2023-03-04 15:35 | CT ---
EXAMINATION TYPE: CT abdomen pelvis wo con CT DLP: 253.1 mGycm, Automated exposure control for dose reduction was used. DATE OF EXAM: 03/04/2023 2:53 PM COMPARISON: CT abdomen pelvis most recent from 03/02/2023. CLINICAL INDICATION:Female, 67 years old with history of fu enteritis; R/O SBO, follow up enteritis. TECHNIQUE: Axial CT of the ;CT abdomen pelvis wo con;Sagittal and coronal reformats were created on a separate workstation. Contrast used: mL of , (none if empty) Oral contrast used: with Oral Contrast (none if empty) FINDINGS: LOWER CHEST: Fibrotic changes with thin the lung bases bilaterally predominant peripherally. ABDOMEN LIVER: Unremarkable GALLBLADDER AND BILE DUCTS: Unremarkable. PANCREAS: Unremarkable. SPLEEN: Unremarkable. ADRENAL GLANDS: Unremarkable. KIDNEYS AND URETERS: No evidence of hydronephrosis or renal calculus. The ureters are unremarkable. PELVIS BLADDER: Unremarkable REPRODUCTIVE: Unremarkable. ABDOMEN & PELVIS STOMACH AND BOWEL: Oral contrast from prior study is scattered throughout the distal small bowel and extending to the rectum. There is redundant sigmoid colon extending up to the right upper quadrant ex tend up into the right upper quadrant. There is some narrowing of the small bowel lumen on series 4 i mage 58. Dilated loops of small bowel are again redemonstrated measuring up to 5.3 cm. There are some thin linear tracts of contrast extending away from a loop of small bowel thought to represent the te rminal ileum just anterior to the sacrum on the right series 6 image 21, 22 which are blind-ending. N o evidence of organizing fluid collection. PERITONEUM/RETROPERITONEUM: No evidence of pneumoperitoneum or free fluid. VASCULATURE: No evidence of aortic aneurysm. MUSCULOSKELETAL: No acute osseous abnormalities LYMPH NODES: No gross evidence for lymphadenopathy. SOFT TISSUE/ABDOMINAL WALL: Unremarkable IMPRESSION: 1. No evidence for complete small bowel obstruction. Contrast from exam earlier in the day is throug hout the colon extending to the rectum. There is redundant sigmoid colon with the sigmoid colon exten ding towards the right upper quadrant. Multiple dilated loops of small bowel are seen stacking in the abdomen. Findings most suggestive of ileus versus partial bowel obstruction. 2. Few curvilinear tracts extending away from what is thought to represent the terminal ileum and ca n appearing to prior CT from 03/02/2023 suggestive of fistula formation in the setting of Crohn's dise ase. 3. Pulmonary fibrotic change.
[2023-03-04] MEDS ORDERED: KETOROLAC 15 MG/ML 1 ML VIAL IVP PRN (17:43)
[2023-03-04] MEDS ORDERED: ACETAMINOPHEN TAB 325 MG TAB PO PRN (17:43)
--- NOTE | 2023-03-04 17:44 | P.CONS ---
History of Present Illness - Reason for Consult Consult date: 03/04/23 - History of Present Illness This is a pleasant 67 year old female with medical history of hypertension, hyperlipidemia, gastroesophageal reflux disease, hypothyroidism and reynauds. Comes in with complaints of feeling bloated after eating and diarrhea, patient has also had weight loss progressive since around June. Patient states that since her weight loss her blood pressure has been controlled and she has stopped her olmesartan outpatient. Patient states on Saturday she had diarrhea after being constipated for a few days. She states she is either constipated or having liquid stools. She had seen Dr. Ro Swift outpatient had an EGD done showing gastritis she is scheduled for a colonoscopy next month. Patient is a current smoker 1 pack per day. Patient had an abdominal pelvis CT done showing marked diffuse thickening of the terminal ileum and distal small bowel resulting in distal small bowel obstruction. Marked interstitial lung disease involving the visualized lung bases. NG tube was placed. She is admitted to the hospital under general surgery for further evaluation of the possible small bowel obstruction. REVIEW OF SYSTEMS: CONSTITUTIONAL: No fever, no malaise, no fatigue. HEENT: No recent visual problems or hearing problems. Denied any sore throat. CARDIOVASCULAR: No chest pain, orthopnea, PND, no palpitations, no syncope. PULMONARY: No shortness of breath, no cough, no hemoptysis. GASTROINTESTINAL: Reports abdominal discomfort, bloating and constipation/diarrhea. NEUROLOGICAL: No headaches, no weakness, no numbness. HEMATOLOGICAL: Denies any bleeding or petechiae. GENITOURINARY: Denies any burning micturition, frequency, or urgency. MUSCULOSKELETAL/RHEUMATOLOGICAL: Denies any joint pain, swelling, or any muscle pain. ENDOCRINE: Denies any polyuria or polydipsia. The rest of the 14-point review of systems is negative. PHYSICAL EXAMINATION: GENERAL: The patient is alert and oriented x3, not in any acute distress. Well developed, well nourished. HEENT: Pupils are round and equally reacting to light. EOMI. No scleral icterus. No conjunctival pallor. Normocephalic, atraumatic. No pharyngeal erythema. No thyromegaly. CARDIOVASCULAR: S1 and S2 present. No murmurs, rubs, or gallops. PULMONARY: Chest is clear to auscultation, no wheezing or crackles. ABDOMEN: Soft, nontender, nondistended, normoactive bowel sounds. No palpable organomegaly. MUSCULOSKELETAL: No joint swelling or deformity. EXTREMITIES: No cyanosis, clubbing, or pedal edema. NEUROLOGICAL: Gross neurological examination did not reveal any focal deficits. SKIN: No rashes. Assessment Small Bowel Obstruction Enteritis with evidence of thickening at the terminal ileum with concern for possible Chron's Disease Gastroesophageal reflux disease Hypertension Hypothyroidism Reynauds Hx dislipidemia Chronic ongoing nicotine use GI prophylaxis DVT prophylaxis Full Code Plan NG tube removed by patient and left out patient is having some bowel movements now CT enterography cancelled pending further recommendations by general surgery Home medications resumed with the exception of olmesartan patient has not been taking this medication at home Patient is continued on clear liquid diet. The impression and plan of care has been dictated by Carolann Porter Nurse Practitioner as directed. Dr. Marvin MD I have performed a history and physical examination and medical decision making of this patient, discussed the same with the dictator, and agree with the dictators assessment and plan as written, documented as a scribe. Based on total visit time, I have performed more than 50% of this visit. Past Medical History Past Medical History: GERD/Reflux, Hyperlipidemia, Hypertension, Thyroid Disorder Additional Past Medical History / Comment(s): Raynauds History of Any Multi-Drug Resistant Organisms: None Reported Past Surgical History: Tubal Ligation Additional Past Surgical History / Comment(s): COLONOSCOPY Past Anesthesia/Blood Transfusion Reactions: No Reported Reaction Past Psychological History: No Psychological Hx Reported Smoking Status: Current every day smoker Past Alcohol Use History: Daily Additional Past Alcohol Use History / Comment(s): SMOKES 1PPD SINCE AGE 18 Past Drug Use History: None Reported - Past Family History Father Family Medical History: Cancer Mother Family Medical History: Cancer Medications and Allergies Home Medications Medication Instructions Recorded Confirmed Type Atorvastatin [Lipitor] 10 mg PO HS 09/10/22 03/02/23 History Levothyroxine Sodium [Synthroid] 50 mcg PO DAILY 09/10/22 03/02/23 History Olmesartan Medoxomil 20 mg PO HS 09/10/22 03/02/23 History Temazepam [Restoril] 15 mg PO HS PRN 09/10/22 03/02/23 History Lansoprazole [Prevacid] 30 mg PO BID 03/02/23 03/02/23 History Allergies Allergy/AdvReac Type Severity Reaction Status Date / Time clindamycin Allergy joint pain Verified 03/02/23 18:13 Physical Exam Vitals: Vital Signs Temp Pulse Resp BP BP Pulse Ox 03/04/23 07:21 97.9 F 83 16 115/73 91 L 03/04/23 02:00 98.4 F 90 16 103/66 91 L 03/03/23 20:00 98.3 F 75 16 140/84 95 03/03/23 19:45 16 03/03/23 12:48 97.6 F 84 20 134/81 93 L Intake and Output 03/03/23 03/04/23 03/04/23 22:59 06:59 14:59 Intake Total 700 700 Balance 700 700 Intake: Intake, IV Titration 700 100 Amount Piperacillin-Tazobactam 3 100 .375 gm In Sodium Chloride 0.9% 100 ml @ 25 mls/hr IVPB Q8HR [facility] Rx# :[id number] Sodium Chloride 0.9% 1, 700 000 ml @ 100 mls/hr IV . Q10H [facility] Rx#:[id number] Oral 600 Other: Voiding Method Toilet # Voids 2 3 Results CBC & Chem 7: 03/03/23 04:38 03/03/23 04:38 Labs: Microbiology - Last 24 Hours (Table) 03/02/23 18:30 Blood Culture - Preliminary Blood 03/02/23 18:15 Blood Culture - Preliminary Blood Assessment and Plan Time with Patient: Less than 30
[2023-03-04] MEDS: methylPREDNISolone SOD SUCCI 40 MG/ML 1 ML VIAL IV SCH ×2 (18:30→23:21)
[2023-03-04] MEDS: ATORVASTATIN 10 MG TAB PO SCH (20:00)
[2023-03-04] MEDS: TEMAZEPAM 15 MG CAP PO PRN (21:21)
[2023-03-05 01:38] VITALS: RESP 16
[2023-03-05] MEDS: LEVOTHYROXINE 50 MCG TAB PO SCH (04:40)
[2023-03-05 08:11] VITALS: BP 112/68; PULSE 74; TEMP 97.8
[2023-03-05] MEDS: PANTOPRAZOLE 40 MG/10 ML VIAL IV SCH (08:37)
[2023-03-05] MEDS: methylPREDNISolone SOD SUCCI 40 MG/ML 1 ML VIAL IV SCH ×2 (08:37→16:07)
[2023-03-05] MEDS: PIPERACILLIN-TAZOBACTAM 3.375 GM in SODIUM CHLORIDE 0.9% 100 ML IVPB SCH (08:45)
[2023-03-05] MEDS: HEPARIN SODIUM,PORCINE 5,000 UNIT/ML 1 ML VIAL SQ SCH (08:46)
--- NOTE | 2023-03-05 12:17 | P.DS ---
Providers Date of admission: 03/02/23 18:15 Expected date of discharge: 03/05/23 Attending physician: Luis Maddox Consults: 03/03/23 09:09 Consult Physician Routine Consulting Provider: Josh Lozoya Consult Reason/Comments: Medical management Do you want consulting provider notified?: Yes Primary care physician: [facility] Course: Discharge diagnosis 1. Enteritis and associated Small bowel obstruction. Etiology unclear but certainly inflammatory bowel disease in the form of Crohn's disease is most likely at present. Hospital course This is a 67-year-old female who presented to the hospital with abdominal pain and a [address] enterography given the concern for possible inflammatory bowel disease. On the CAT scan from today there is an area of narrowing involving the distal small bowel. The patient has a few small serpiginous areas of contrast thought to likely represent fistulization. No obstruction to the flow of liquid contrast on CAT scan. Patient started on IV steroids for possible inflammatory bowel disease. Abdominal pain has shown improvement. She is having bowel movements. She is tolerating diet. She has been up ambulating. She is afebrile. Patient is stable for discharge. She'll be discharged home with a prednisone taper. Please refer to chart for any further details. Physician Core Machine Operator note has been reviewed by physician. Signing provider agrees with the documented findings, assessment, and plan of care. I have personally seen and examined the patient, reviewed the MILLWRIGHT HELPER /PAs history, exam and MDM and agree with the assessment and plan as written. Based on total visit time, I have performed more than 50% of the visit. As above: Patient doing well today. Says her symptoms have resolved. Liquid diet slowly advanced to soft foods at home. Continue oral prednisone after discharge. Follow-up with GI. Patient Condition at Discharge: Stable Plan - Discharge Summary Discharge Rx Participant: No New Discharge Prescriptions: New predniSONE 0 mg PO DIRECTED #74 tab Continue Temazepam [Restoril] 15 mg PO HS PRN PRN Reason: Insomnia Levothyroxine Sodium [Synthroid] 50 mcg PO DAILY Lansoprazole [Prevacid] 30 mg PO BID Atorvastatin [Lipitor] 10 mg PO HS Discontinued Olmesartan Medoxomil 20 mg PO HS Discharge Medication List Atorvastatin [Lipitor] 10 mg PO HS 09/10/22 [History] Levothyroxine Sodium [Synthroid] 50 mcg PO DAILY 09/10/22 [History] Temazepam [Restoril] 15 mg PO HS PRN 09/10/22 [History] Lansoprazole [Prevacid] 30 mg PO BID 03/02/23 [History] predniSONE 0 mg PO DIRECTED #74 tab 03/05/23 [Rx] Follow up Appointment(s)/Referral(s): Irving Villalobos DO [Primary Care Provider] - 03/07/23 2:40 pm Shanon Swift MD [STAFF PHYSICIAN] - 1 Week (If the office does not call you with an appointment time and date please call to make follow up appointment.) Activity/Diet/Wound Care/Special Instructions: Continue a Full liquid diet for 2 days and then advance to soft diet Discharge/Stand Alone Forms: AA Meetings [facility], Outpatient Counseling Discharge Disposition: HOME SELF-CARE
--- NOTE | 2023-03-05 22:02 | P.PN ---
Progress Note - Text Progress Note Date: 03/05/23 - History of Present Illness This is a pleasant 67 year old female with medical history of hypertension, hyperlipidemia, gastroesophageal reflux disease, hypothyroidism and reynauds. Comes in with complaints of feeling bloated after eating and diarrhea, patient has also had weight loss progressive since around June. Patient states that since her weight loss her blood pressure has been controlled and she has stopped her olmesartan outpatient. Patient states on Saturday she had diarrhea after being constipated for a few days. She states she is either constipated or having liquid stools. She had seen Dr. Ro Swift outpatient had an EGD done showing gastritis she is scheduled for a colonoscopy next month. Patient is a current smoker 1 pack per day. Patient had an abdominal pelvis CT done showing marked diffuse thickening of the terminal ileum and distal small bowel resulting in distal small bowel obstruction. Marked interstitial lung disease involving the visualized lung bases. NG tube was placed. She is admitted to the hospital under general surgery for further evaluation of the possible small bowel obstruction. 03/05/2023: Patient reclining in bed. at the bedside. Daughter also present. Patient denies any nausea vomiting abdominal pain today. Tolerating full liquids. Had about 10 bowel movements yesterday because of bowel preparation. No bowel movement today. In August of this year had EGD by Dr. Ro Swift was found to have gastritis and put on PPI. Patient scheduled for colonoscopy by Dr. Ro Swift. For 2 months patient with having difficulty with digestion. Feels belly bloating. Has lost weight. On examination: VITAL SIGNS: [97.8, 74, 16, 1 12 x 68, 94% room air] GENERAL APPEARANCE: BMI 17, laying in bed awake HEENT: Normal external appearance of nose and ear. Oral cavity normal EYES: Pupils equal. Conjunctiva normal. NECK: JVD not raised. Mass not palpable. RESPIRATORY: Respiratory effort normal. Lungs clear to auscultation. CARDIOVASCULAR: First and second sounds normal. No edema. ABDOMEN: Soft. Liver and spleen not palpable. No tenderness. No mass palpable. PSYCHIATRY: Alert and oriented x3. Mood and affect normal. MUSCULAR skeletal: Decreased muscle mass INVESTIGATIONS, reviewed in the clinical context: White count 5.1 hemoglobin 12.3 potassium 3.5 BUN [address] abdomen and pelvis: No evidence for complete small bowel obstruction. Contrast went throughout the colon extending into the rectum. Redundant sigmoid colon with sigmoid colon extending to was a right upper quadrant. Multiple redundant dose of small bowel last seen stacking in the abdomen. Suggestive more of an ileus. Pulmonary fibrotic changes. Some suggestion of fistula formation. Assessment Small Bowel Obstruction , likely ileus Enteritis with evidence of thickening at the terminal ileum with concern for possible Chron's Disease Gastroesophageal reflux disease Hypertension Hypothyroidism Reynauds Pulmonary fibrotic changes on computed tomography scan chest Hx dislipidemia Chronic ongoing nicotine use GI prophylaxis DVT prophylaxis Full Code Continue with liquid diet. Discussed length with the patient and and daughter the bedside. Patient to keep appointment for a colonoscopy with Dr. Ro Swift. Has services are not available in the hospital currently. Other medications to continue. Past Medical History Past Medical History: GERD/Reflux, Hyperlipidemia, Hypertension, Thyroid Disorder Additional Past Medical History / Comment(s): Raynauds History of Any Multi-Drug Resistant Organisms: None Reported Past Surgical History: Tubal Ligation Additional Past Surgical History / Comment(s): COLONOSCOPY Past Anesthesia/Blood Transfusion Reactions: No Reported Reaction Past Psychological History: No Psychological Hx Reported Smoking Status: Current every day smoker Past Alcohol Use History: Daily Additional Past Alcohol Use History / Comment(s): SMOKES 1PPD SINCE AGE 18 Past Drug Use History: None Reported - Past Family History Father Family Medical History: Cancer Mother Family Medical History: Cancer
--- NOTE | 2023-03-06 09:51 | CDI ---
Documentation Clarification Form Date: 03/06/2023 09:42:45 AM From: Lizette Estrada Admit Date: 03/02/2023 06:15:00 PM Patient Name: Jhoana Fitzgerald Visit Number: [id number] Discharge Date: 03/05/2023 04:37:00 PM ATTENTION: The Clinical Documentation Specialists (CDI) and [facility] Coding Staff appreciate your assistance in clarifying documentation. Please respond to the clarification below the line at the bottom and electronically sign. The CDI & [facility] Coding staff will review the response and follow-up if needed. Please note: Queries are made part of the Legal Health Record. If you have any questions, please contact the author of this message via ITS. Dr. Luis Maddox The Registered Dietitian assessment on March 04, indicates this patient meets criteria for severe malnutrition. Based on this information and the findings below, is there an additional diagnosis that is clinically appropriate for this patient? History/Risk Factors: Clinical Indicators: Current BMI: 16.9 RD Consult Assessment: 25.6% weight loss in 6 months, Severe malnutrition. Treatment: Ensure clear Supplements: Ensure Is there an additional diagnosis that is clinically appropriate for this patient? [ ] Mild Protein-Calorie Malnutrition [ ] Moderate Protein-Calorie Malnutrition [ X ] Severe Protein-Calorie Malnutrition [ ] No additional diagnosis/Not clinically significant [ ] Other condition, please specify [ ] Unable to Determine MTDD
== END 2023-03-05 16:37 | disposition home or self-care (01) | DRG 385 ==
LOC: EC 15:39 → 5NMEDONC 18:15
PROVIDERS: ADMIT Surgery; ATTEND Surgery
PROC: 0D9670Z Drainage of Stomach with Drainage Device, Via Natural or Artificial Opening (ICD-10-PCS; principal; 2023-03-03)
DX: K50.912 Crohn's disease, unspecified, with intestinal obstruction (principal); E43 Unspecified severe protein-calorie malnutrition; K56.7 Ileus, unspecified; Z68.1 Body mass index [BMI] 19.9 or less, adult; K59.00 Constipation, unspecified; E78.5 Hyperlipidemia, unspecified; F17.210 Nicotine dependence, cigarettes, uncomplicated; G89.29 Other chronic pain; I10 Essential (primary) hypertension; I73.00 Raynaud's syndrome without gangrene; K21.9 Gastro-esophageal reflux disease without esophagitis; K29.70 Gastritis, unspecified, without bleeding; Z79.890 Hormone replacement therapy; Z79.899 Other long term (current) drug therapy; R63.4 Abnormal weight loss; Z53.09 Procedure and treatment not carried out because of other contraindication; Z28.311 Partially vaccinated for COVID-19; Z28.21 Immunization not carried out because of patient refusal; Z71.3 Dietary counseling and surveillance; Z88.1 Allergy status to other antibiotic agents
CPT/HCPCS: 36415; 74018; 74176; 74177; 80048; 80053; 81001; 82150; 83605; 83690; 85025; 87040; 96361; 96374; 96375; 99285

== ENCOUNTER 2023-03-15 11:35 | Day surgery (SDC) | payer MEDICARE, BC ==
[2023-03-13 09:18] VITALS: BMI 16.9
[~2023-03-15 11:35] MED LIST changes: -LACTATED RINGERS 1,000 ML IV SCH
[2023-03-15 12:14] VITALS: TEMP 97.8
[2023-03-15] MEDS: LACTATED RINGERS 1,000 ML IV SCH ×2 (12:30→13:26)
[2023-03-15] MEDS ORDERED: PROPOFOL 10 MG/ML 20 ML VIAL IV ONE (13:27)
--- NOTE | 2023-03-15 13:46 | P.PCN ---
Date of Procedure: 03/15/23 Procedure(s) Performed: BRIEF HISTORY: Patient is a 67-year-old pleasant white female scheduled for an elective colonoscopy as a part of severe right lower quadrant abdominal pain and diarrhea for the last 6 months duration. She was recently admitted to this hospital 2 weeks ago partial small bowel obstruction and CAT scan didn't multiple diffuse thickening of the terminal ileum suspicious for Crohn's. She was empirically started on prednisone 40 mg daily and was discharged home and is scheduled for colonoscopy today. PROCEDURE PERFORMED: Colonoscopy with biopsy and snare polypectomy. PREOPERATIVE DIAGNOSIS: Right lower quadrant abdominal pain and diarrhea of 6 months duration associated weight loss of 30 pounds.. IV sedation per Anesthesia. PROCEDURE: After informed consent was obtained, the patient, was brought into the endoscopy unit. IV sedation was administered by Anesthesia under continuous monitoring. Digital rectal examination was normal. Initially the Olympus CF-160 flexible video colonoscope was then inserted in the rectum, gradually advanced into the cecum without any difficulty. Careful examination was performed as the scope was gradually being withdrawn. Ileocecal valve and the appendiceal orifice were visualized and appeared normal. Prep was excellent. The terminal ileum was intubated and 20 cm visualized and appeared normal. Biopsies were done from this area. Mucosa of the cecum, ascending colon, transverse colon, descending colon, appeared normal. The sigmoid colon at 35 cm from the anal was there was a 2.5 cm broad-based polyp that was removed by piecemeal snare polypectomy and complete polypectomy accomplished. Scattered sigmoid diverticulosis seen. Rest of the sigmoid colon, and rectum appeared normal. Random biopsies were done from ascending and descending colon. Retroflexion was performed in the rectum and no lesions were seen. The patient tolerated the procedure well. IMPRESSION: Normal-appearing terminal ileum with no evidence of Crohn's ileitis status post multiple biopsies 2.5 cm broad-based; sigmoid polyp status post polypectomy Scattered sigmoid diverticulosis RECOMMENDATIONS: Findings of this examination were discussed with the patient as well as a family. She was advised to follow with the biopsy results and if the biopsies adenoma she can have a repeat colonoscopy in 3 years. In regards to the right lower quadrant abdominal pain and diarrhea she will continue with her tapering dose of prednisone and she'll be seen in office in 2 weeks.
[2023-03-15 14:28] VITALS: BP 134/70; PULSE 75; RESP 16
== END 2023-03-15 14:26 | disposition home or self-care (01) ==
LOC: ORWHC2ENDO 11:35
PROVIDERS: ATTEND Internal Medicine Gastroenterology
DX: D12.5 Benign neoplasm of sigmoid colon (principal); K57.30 Diverticulosis of large intestine without perforation or abscess without bleeding; I10 Essential (primary) hypertension; E11.9 Type 2 diabetes mellitus without complications; F17.210 Nicotine dependence, cigarettes, uncomplicated; E03.9 Hypothyroidism, unspecified; K21.9 Gastro-esophageal reflux disease without esophagitis; Z79.899 Other long term (current) drug therapy
CPT/HCPCS: 45380; 45385; 88305

== ENCOUNTER → 2023-04-19 | Day surgery (SDC) | payer BC, MEDICARE ==
[~2023-04-19] MED LIST changes: +GLUCAGON 1 MG/ML VIAL IM STA; -LIDOCAINE 1% (10MG/ML) FOR IV START INTRADERMA PRN
[2023-04-19 09:14] VITALS: BP 133/91; PULSE 104; RESP 18; TEMP 97.9
--- NOTE | 2023-04-19 13:33 | MR ---
EXAMINATION TYPE: MR Enterography DATE OF EXAM: 04/19/2023 11:20 AM COMPARISON: 03/04/2023. CLINICAL INDICATION: Female 67 years old with a history of R10.30 Lower Abd Pain. Lower abdominal pa in. TECHNIQUE: Standard multiplanar, multisequence imaging of the abdomen is performed without and with I V contrast, patient is injected with 1250 mL intravenous Gadavist gadolinium contrast. Oral NeuLumEX was given as per enterography protocol. FINDINGS: LOWER CHEST: Increased interstitial markings of the pulmonary parenchyma in the lung bases. Findings suggest fibrotic change. ABDOMEN Bowel: There is distended small bowel loops throughout the abdomen measuring up to 4.6 cm. The dilate d loops of bowel in motion limits evaluation of findings on prior CT. The fistula which was well appr eciated on CT is not well appreciated likely due to motion and location of contrast. No evidence of bowel obstruction. No evidence for mucosal hyperenhancement or stricture. Peritoneum: No evidence of pneumoperitoneum, free fluid, or adenopathy. Liver: Unremarkable. Gallbladder and Bile ducts: Unremarkable. Pancreas: Unremarkable. Spleen: Unremarkable. Adrenal glands: Unremarkable. Kidneys: Unremarkable. Bladder: Unremarkable. Reproductive: Unremarkable. Lymph Nodes: Vasculature: Unremarkable. No aortic aneurysm. Musculoskeletal: The osseous structures appear intact. Abdominal wall: Unremarkable. IMPRESSION: 1. Limited exam due to distended bowel loops, motion and patient's anatomy. No definitive mucosal hy perenhancement visualized given limitations of the exam to suggest active bowel disease. Multiple di lated loops of small bowel are seen stacking in the abdomen. Findings remain suggestive of ileus vers us partial bowel obstruction given the stool in the large bowel. The curvilinear tracts extending steve y from what is thought to represent the terminal ileum on prior CT are not well appreciated on this e xam due to motion. Findings remain concerning for fistula in the setting of Crohn's disease. 2. Pulmonary fibrotic change.
== END ==
LOC: RADMRIMAIN 07:32
PROVIDERS: ATTEND Internal Medicine Gastroenterology
DX: K63.89 Other specified diseases of intestine (principal); J84.10 Pulmonary fibrosis, unspecified; F17.210 Nicotine dependence, cigarettes, uncomplicated; F10.90 Alcohol use, unspecified, uncomplicated; I73.00 Raynaud's syndrome without gangrene; K21.9 Gastro-esophageal reflux disease without esophagitis; E78.5 Hyperlipidemia, unspecified; E03.9 Hypothyroidism, unspecified; Z79.890 Hormone replacement therapy; Z79.899 Other long term (current) drug therapy
CPT/HCPCS: 96372; 72197; 74183; J1610; A9585

== ENCOUNTER 2023-06-18 12:14 | Day surgery (SDC) | payer MEDICARE ==
[2023-06-18] MEDS ORDERED: LIDOCAINE 1% (10MG/ML) FOR IV START INTRADERMA PRN (12:40)
[2023-06-18] MEDS: LACTATED RINGERS 1,000 ML IV ONE (13:09)
[2023-06-18] MEDS: ONDANSETRON 4 MG/2 ML VIAL IVP ONE (13:22)
[2023-06-18] MEDS: DEXAMETHASONE SOD PHOSPHATE 4 MG/ML 1 ML VIAL IV ONE (13:22)
[2023-06-18] MEDS: ALVIMOPAN 12 MG CAPSULE PO ONE (13:22)
[2023-06-18] MEDS: HEPARIN SODIUM,PORCINE 5,000 UNIT/ML 1 ML VIAL SQ ONE (13:26)
[2023-06-18] MEDS ORDERED: LIDOCAINE 1% INJ 10MG/ML (20 ML MDV) ONE (14:05)
[2023-06-18] MEDS ORDERED: fentaNYL (PF) 50 MCG/ML 2 ML AMP ONE (14:05)
[2023-06-18] MEDS ORDERED: NEOSTIGMINE 1 MG/ML 10 ML VIAL ONE (14:05)
[2023-06-18] MEDS ORDERED: ROCURONIUM 10 MG/ML (5 ML VIAL) IV ONE (14:05)
[2023-06-18] MEDS ORDERED: SUCCINYLCHOLINE CHLORIDE 200 MG/10 ML VIAL IV ONE (14:05)
[2023-06-18] MEDS ORDERED: PROPOFOL 10 MG/ML 20 ML VIAL IV ONE (14:05)
[2023-06-18] MEDS ORDERED: MIDAZOLAM 2 MG/2 ML VIAL ONE (14:05)
[2023-06-18] MEDS ORDERED: GLYCOPYRROLATE 0.2 MG/ML 2 ML VIAL ONE (14:05)
[2023-06-18] MEDS: ceFAZolin 1 GM in DEXTROSE/WATER 1 50ML.BAG IVPB STA (14:10)
[2023-06-18] MEDS: BUPIVACAINE (PF) 0.25% 30 ML VIAL SQ ONE (14:46)
[2023-06-18] MEDS ORDERED: NALOXONE 0.4 MG/ML 1 ML VIAL IV PRN (15:28)
[2023-06-18] MEDS ORDERED: ONDANSETRON 4 MG/2 ML VIAL IVP PRN (15:28)
[2023-06-18] MEDS ORDERED: ACETAMINOPHEN TAB 325 MG TAB PO PRN (15:28)
[2023-06-18] MEDS ORDERED: METOCLOPRAMIDE 5 MG/ML 2 ML VIAL IVP PRN (15:28)
[2023-06-18] MEDS ORDERED: HYDROcodone/APAP 5-325MG 1 EACH TAB PO PRN (15:28)
--- NOTE | 2023-06-18 15:41 | P.OP ---
Date of Procedure: 06/18/23 Procedure(s) Performed: PREOPERATIVE DIAGNOSIS: Small bowel obstruction POSTOPERATIVE DIAGNOSIS: Normal exam PROCEDURE: Diagnostic laparoscopy SURGEON: Tan EBL: 5 cc ANESTHESIA: General COMPLICATIONS: None OPERATIVE PROCEDURE: Patient placed in the supine position. The patient was placed under general anesthesia. A small vertical supraumbilical incision was made. Fascia was retracted anteriorly. Veress needle was advanced into the peritoneal cavity. Saline drop test was normal. Full insufflation took place to 15 mmHg. 5 mm optical trocar was advanced. 2 additional 5 mm trocar was placed in the left mid abdomen. Patient's bowel was inspected. Some of the small bowel loops appeared distended. The bowel was then ran from the ileocecal valve to the ligament of Treitz and back once again. No inflammation, stricture, mass, evidence of Crohn's or fistula was noted. Portions of the mid small bowel appeared somewhat distended but no transition point was noted. The visualized stomach and colon appeared normal. The liver and gallbladder appeared normal. The patient had slight outpouching of the peritoneum at the left internal inguinal ring without definite hernia seen. This was very superficial. No visible femoral or obturator hernia was noted. The trocars were then removed. The skin at all 3 sites was closed using 4-0 Monocryl stitch. Skin glue was applied. DISPOSITION: Stable to recovery room
[2023-06-18] MEDS: HYDROmorphone 0.5 MG/0.5 ML SYRINGE IVP PRN ×2 (15:42→22:32)
[2023-06-18] MEDS: LACTATED RINGERS 1,000 ML IV SCH (17:31)
[2023-06-18] MEDS: droPERidol 5 MG/2 ML VIAL IVP ONE (17:31)
[2023-06-18] MEDS: Pre Op ABX Message 1 EACH MISC MISCELLANE ONE (17:31)
[2023-06-18] MEDS: metroNIDAZOLE-NS PMX 500 MG in SALINE 1 100ML.BAG IVPB STA (17:32)
[2023-06-18] MEDS: KETOROLAC 15 MG/ML 1 ML VIAL IVP SCH (17:49)
[2023-06-19 00:16] VITALS: RESP 16
[2023-06-19] MEDS ORDERED: TEMAZEPAM 15 MG CAP PO PRN (02:33)
[2023-06-19 08:05] LABS: Basophils % (A) 0 %; Eosinophils # (A) 0.1 k/uL (0-0.7); Eosinophils % (A) 1 %; HGB 11.2 gm/dL (11.4-16.0); Lymphocytes # (A) 2.7 k/uL (1.0-4.8); Lymphocytes % (A) 40 %; MCH 31.7 pg (25.0-35.0); MCV 96.2 fL (80.0-100.0); Mean Platelet Volume 7.8; Monocytes # (A) 0.4 k/uL (0-1.0); Monocytes % (A) 6 %; Neutrophils # (A) 3.5 k/uL (1.3-7.7); Neutrophils % (A) 52 %; Platelet Count 310 k/uL (150-450); RBC 3.53 m/uL (3.80-5.40); WBC 6.7 k/uL (3.8-10.6)
[2023-06-19 08:10] LABS: African American GFR (CKD) >90 (>60 ml/min/1.73 sqM); Anion Gap 4 mmol/L; Blood Urea Nitrogen 11 mg/dL (7-17); Calcium 8.6 mg/dL (8.4-10.2); Carbon Dioxide 23 mmol/L (22-30); Chloride 102 mmol/L (98-107); Glucose 89 mg/dL (74-99); Non-African American GFR(CKD) >90 (>60 ml/min/1.73 sqM); Potassium 4.8 mmol/L (3.5-5.1); Sodium 129 mmol/L (137-145)
[2023-06-19 08:30] LABS: Magnesium 1.5 mg/dL (1.6-2.3)
[2023-06-19 08:54] VITALS: BP 110/68; PULSE 80; TEMP 97.5
[2023-06-19] MEDS: PANTOPRAZOLE 40 MG/10 ML VIAL IVP SCH (09:01)
[2023-06-19] MEDS ORDERED: traMADol 50 MG TAB PO PRN (10:35)
[2023-06-19 11:05] VITALS: BMI 15.9
[2023-06-19] MEDS: MAGNESIUM SULFATE-D5W PMX 1 GM in DEXTROSE/WATER 1 100ML.BAG IVPB ONE (11:48)
[2023-06-19] MEDS: SODIUM CHLORIDE 0.9% 1,000 ML IV SCH (12:00)
[2023-06-19 12:19] LABS: African American GFR (CKD) >90 (>60 ml/min/1.73 sqM); Anion Gap 3 mmol/L; Blood Urea Nitrogen 9 mg/dL (7-17); Calcium 8.9 mg/dL (8.4-10.2); Carbon Dioxide 27 mmol/L (22-30); Chloride 102 mmol/L (98-107); Glucose 98 mg/dL (74-99); Non-African American GFR(CKD) >90 (>60 ml/min/1.73 sqM); Potassium 4.7 mmol/L (3.5-5.1); Sodium 132 mmol/L (137-145)
--- NOTE | 2023-06-19 12:46 | P.DS ---
Providers Expected date of discharge: 06/19/23 Attending physician: Luis Maddox Consults: 06/18/23 15:30 Consult Physician Routine Consulting Provider: Lizbet Wong Consult Reason/Comments: med mgmt Do you want consulting provider notified?: Yes [facility] Course: Discharge diagnosis 1. Small bowel obstruction status post diagnostic laparoscopy which revealed a normal exam 2. Hyponatremia improving 3. Hypomagnesemia received supplement Hospital course This is a 67-year-old female with chronic abdominal with distention distention and bloating. She is status post diagnostic laparoscopy. Exam was normal. Patient is tolerating diet. Pain is controlled. She has been up and ambulating. She is afebrile. Her electrolytes have been corrected. She is stable for discharge. Please refer to chart for any further details. Physician Nanny/Household Manager note has been reviewed by physician. Signing provider agrees with the documented findings, assessment, and plan of care. Patient Condition at Discharge: Stable Plan - Discharge Summary Discharge Rx Participant: No New Discharge Prescriptions: New traMADol HCl [Ultram] 100 mg PO Q6HR PRN 3 Days #12 tab PRN Reason: Pain Acetaminophen Tab [Tylenol] 1,000 mg PO Q6HR PRN #30 tablet PRN Reason: Pain Continue Temazepam [Restoril] 15 mg PO HS PRN PRN Reason: Insomnia Lansoprazole [Prevacid] 30 mg PO BID Ibuprofen [Advil] 200 mg PO Q8HR PRN PRN Reason: Pain Discharge Medication List Temazepam [Restoril] 15 mg PO HS PRN 09/10/22 [History] Lansoprazole [Prevacid] 30 mg PO BID 03/02/23 [History] Ibuprofen [Advil] 200 mg PO Q8HR PRN 06/14/23 [History] Acetaminophen Tab [Tylenol] 1,000 mg PO Q6HR PRN #30 tablet 06/19/23 [Rx] traMADol HCl [Ultram] 100 mg PO Q6HR PRN 3 Days #12 tab 06/19/23 [Rx] Follow up Appointment(s)/Referral(s): Luis Maddox MD [Medical Doctor] - 1 Week Activity/Diet/Wound Care/Special Instructions: No driving while taking Ultram No lifting over 10 pounds You may shower. No soaking or tub baths for 2 weeks Very light activity until you are reevaluated at your follow up appointment with your surgeon Low fiber diet Discharge Disposition: HOME SELF-CARE
--- NOTE | 2023-06-19 22:19 | P.CONS ---
History of Present Illness - Reason for Consult Consult date: 06/19/23 Medical management - Chief Complaint Abdominal pain - History of Present Illness Patient is a 67-year-old female with a past medical history of hypertension, hyperlipidemia, hypothyroidism, 40 LB weight loss over the last 1 year, GERD and currently everyday smoker presents to ER with complaints of abdominal distention and bloating worsening 1 day prior to admission. Patient was also nauseated. No episodes of vomiting. No fever no chills. Denies any recent injuries. Patient does have prior history of abdominal bloating and issues with constipation. Patient had MRI enterography in March 2023 showed limited exam due to distended bowel loops, motion and patient's anatomy. No definitive neurological hyperenhancement visualized given limitations of the exam to suggest active bowel disease. Multiple dilated loops of small bowel are seen stacking in the abdomen. Findings remain suggestive of ileus versus partial bowel obstruction given the stool in the large bowel. Pulmonary fibrotic changes. Patient also had colonoscopy in February 2023 showed normal-appearing terminal ileum with evidence of Crohn's ileitis status post multiple biopsies 2.5 cm broad-based sigmoid polyp status post polypectomy. Scattered sigmoid diverticulosis. Patient underwent diagnostic laparoscopy which was normal. Laboratory data showed WBC 6.7 hemoglobin 11.2 and platelets 310 Sodium 139 potassium 4.8 chloride 102 bicarb is 23 BUN 11 and creatinine 0.4. Magnesium 1.5. Review of Systems Constitutional: Patient denies any fever or chills . no Generalized weakness. Abdomen: Patient denied any nausea or vomiting or abd. pain Cardiovascular: Patient denies any chest pain or short of breath no palpitations. Respiratory: patient denied any cough . no sputum production. No shortness of breath Neurologic: Patient denied any numbness or tingling or headache. Musculoskeletal: Patient denies any complaints of joint swelling or deformity. Skin: Negative Psychiatric: Negative Endocrine: No heat or cold intolerance. No recent weight gain. Genitourinary: No dysuria or hematuria. All other 14 point ROS negative except the above Past Medical History Past Medical History: GERD/Reflux, Hyperlipidemia, Hypertension, Thyroid Disor denise Additional Past Medical History / Comment(s): 40lb wt loss over the last year,poor appetite because stomach feels bloating after dinner, able to eat lunch,hx no longer needing to take b/p medications,Raynaud's History of Any Multi-Drug Resistant Organisms: None Reported Past Surgical History: Tubal Ligation Additional Past Surgical History / Comment(s): COLONOSCOPY Past Anesthesia/Blood Transfusion Reactions: No Reported Reaction Additional Past Anesthesia/Blood Transfusion Reaction / Comm: no hx blood transfusion Smoking Status: Current every day smoker - Past Family History Father Family Medical History: Cancer Mother Family Medical History: Cancer Medications and Allergies Home Medications Medication Instructions Recorded Confirmed Type Temazepam [Restoril] 15 mg PO HS PRN 09/10/22 06/18/23 History Lansoprazole [Prevacid] 30 mg PO BID 03/02/23 06/18/23 History Ibuprofen [Advil] 200 mg PO Q8HR PRN 06/14/23 06/18/23 History Acetaminophen Tab [Tylenol] 1,000 mg PO Q6HR PRN #30 tablet 06/19/23 Rx traMADol HCl [Ultram] 100 mg PO Q6HR PRN 3 Days #12 tab 06/19/23 Rx Allergies Allergy/AdvReac Type Severity Reaction Status Date / Time clindamycin Allergy joint pain Verified 06/18/23 12:43 Physical Exam Vitals: Vital Signs Temp Pulse Resp BP BP Pulse Ox 06/19/23 08:00 97.5 F L 80 16 110/68 06/19/23 00:01 97.4 F L 73 16 89/54 98 06/18/23 18:52 107 H 15 111/70 95 06/18/23 18:45 97.4 F L 97 14 108/71 94 L 06/18/23 18:30 98 15 113/50 95 06/18/23 17:45 96 15 89/58 95 06/18/23 17:30 97 F L 95 14 104/57 06/18/23 17:15 87 15 89/60 95 06/18/23 17:00 79 16 86/56 97 06/18/23 16:30 75 16 99/60 96 06/18/23 16:15 70 16 108/58 94 L 06/18/23 16:00 66 16 102/58 93 L 06/18/23 15:45 72 14 102/56 98 06/18/23 15:30 88 14 126/62 100 06/18/23 15:10 97.1 F L 109 H 14 133/70 97 06/18/23 13:12 95 06/18/23 12:45 98.0 F 88 18 115/70 Intake and Output 06/18/23 06/19/23 06/19/23 22:59 06:59 14:59 Intake Total 0 Balance 0 Intake: IV 0 Other: # Voids 1 PHYSICAL EXAMINATION: Patient is lying in the bed comfortably, no acute distress, awake alert and oriented.. HEENT: Normocephalic. Neck is supple. Pupils reactive. Nostrils clear. Oral cavity is moist. Neck reveals no JVD, carotid bruits, or thyromegaly. CHEST EXAMINATION: Trachea is central. Symmetrical expansion. Lung ness clear to auscultation and percussion. CARDIAC: Normal S1, S2 with no gallops. No murmurs ABDOMEN: Soft. Bowel sounds present. Nontender. No organomegaly. No abdominal bruits. Extremities: reveal no edema. No clubbing or cyanosis Neurologically awake, alert, oriented x3 with well-coordinated movements. No focal deficits noted Skin: No rash or skin lesions. Psychiatric: Coperative. Nonsuicidal, Musculoskeletal: No joint swelling or deformity. Normal range of motion. Results CBC & Chem 7: 06/19/23 07:27 06/19/23 11:56 Labs: Abnormal Lab Results - Last 24 Hours (Table) 06/19/23 06/19/23 Range/Units 07:27 07:27 RBC 3.53 L (3.80-5.40) m/uL Hgb 11.2 L (11.4-16.0) gm/dL Sodium 129 L (137-145) mmol/L Creatinine 0.42 L (0.52-1.04) mg/dL Magnesium 1.5 L (1.6-2.3) mg/dL Assessment and Plan Assessment: Abdominal distention bloating due to acute small bowel obstruction status post exploratory diagnostic laparoscopy which revealed normal exam. Patient did have a bowel movement this morning and bloating has improved. Hypovolemic hyponatremia Hypomagnesemia replaced Sigmoid diverticulosis GERD Hyperlipidemia Hypertension blood pressure is not elevated currently. Patient is not on any medications at home. Improved after weight loss. Hypothyroidism GI prophylaxis Currently everyday smoker. Plan: Patient was started on IV hydration with normal saline. Follow-up sodium level. Magnesium was replaced. Patient is status post diagnostic laparoscopy which was normal. Patient did symptomatically improved after bowel movement. Otherwise patient is tolerating oral diet and is being discharged home today. Patient was advised to follow-up with primary care physician in the next 3 to 5 days. Thank you for your consult.
== END 2023-06-19 14:00 | disposition home or self-care (01) ==
LOC: OR 12:14 → 4FBP 14:58 → OR 06-19 14:00
PROVIDERS: ATTEND Surgery
DX: K56.609 Unspecified intestinal obstruction, unspecified as to partial versus complete obstruction (principal); E87.1 Hypo-osmolality and hyponatremia; K21.9 Gastro-esophageal reflux disease without esophagitis; E78.5 Hyperlipidemia, unspecified; I10 Essential (primary) hypertension; E07.9 Disorder of thyroid, unspecified; F17.210 Nicotine dependence, cigarettes, uncomplicated; Z88.1 Allergy status to other antibiotic agents; Z79.899 Other long term (current) drug therapy
CPT/HCPCS: 80048; 83735; 85025; 49320; J1644; J1100; J2405; J3475; J0690; J1885 ×2; C9113; J1170 ×2; J0665

== ENCOUNTER 2023-08-28 11:13 | Inpatient (IN) | payer MEDICARE ==
[2023-08-28] MEDS: PANTOPRAZOLE 40 MG/10 ML VIAL IVP STA (12:10)
[2023-08-28] MEDS: SODIUM CHLORIDE 0.9% 500 ML 500 ML IV STA (12:13)
[2023-08-28] MEDS: ONDANSETRON 4 MG/2 ML VIAL IVP STA (12:14)
[2023-08-28 12:21] LABS: Basophils % (A) 0 %; Eosinophils # (A) 0.1 k/uL (0-0.7); Eosinophils % (A) 1 %; HCT 40.5 % (34.0-46.0); HGB 13.1 gm/dL (11.4-16.0); Lymphocytes # (A) 1.4 k/uL (1.0-4.8); Lymphocytes % (A) 11 %; MCH 30.6 pg (25.0-35.0); MCHC 32.5 g/dL (31.0-37.0); MCV 94.3 fL (80.0-100.0); Mean Platelet Volume 7.9; Monocytes # (A) 0.3 k/uL (0-1.0); Monocytes % (A) 3 %; Neutrophils # (A) 10.9 k/uL (1.3-7.7); Neutrophils % (A) 85 %; Platelet Count 288 k/uL (150-450); RBC 4.29 m/uL (3.80-5.40); WBC 12.9 k/uL (3.8-10.6)
[2023-08-28 12:22] LABS: INR 1.1 (<1.2); Partial Thromboplastin Time 25.9 sec (22.0-30.0); Prothrombin Time 12.1 sec (10.0-12.5)
[2023-08-28 12:27] LABS: ALT 51 U/L (4-34); AST 52 U/L (14-36); African American GFR (CKD) >90 (>60 ml/min/1.73 sqM); Albumin 3.8 g/dL (3.5-5.0); Alkaline Phosphatase 84 U/L (38-126); Anion Gap 9 mmol/L; Blood Urea Nitrogen 18 mg/dL (7-17); Calcium 8.8 mg/dL (8.4-10.2); Carbon Dioxide 30 mmol/L (22-30); Chloride 103 mmol/L (98-107); Glucose 109 mg/dL (74-99); Magnesium 1.9 mg/dL (1.6-2.3); Non-African American GFR(CKD) >90 (>60 ml/min/1.73 sqM); Potassium 3.4 mmol/L (3.5-5.1); Sodium 142 mmol/L (137-145); Total Bilirubin 0.7 mg/dL (0.2-1.3); Total Protein 6.2 g/dL (6.3-8.2)
--- NOTE | 2023-08-28 12:54 | ED ---
GI Bleed HPI - General Chief complaint: GI Bleed Stated complaint: Nausea/Vomiting Time Seen by Provider: 08/28/23 11:20 Source: patient, RN notes reviewed Mode of arrival: ambulatory Limitations: no limitations - History of Present Illness Initial comments: 67-year-old female presents emergency department chief complaint abdominal pain, hematemesis. Patient states that she has been having creasing abdominal pain, bloating and distention of her abdomen she has had a partial obstruction in the past along with exploratory laparoscopic surgery. Patient states that she has had some constipation but also diarrhea denies any melanotic stools or hematoc hezia she states she been vomiting in which she states there was maroon-colored blood along with what looked like coffee-ground emesis. Patient denies any chest pain she states she does have epigastric and upper abdominal discomfort. - Related Data Home Medications Medication Instructions Recorded Confirmed Temazepam [Restoril] 15 mg PO HS 09/10/22 08/28/23 Lansoprazole [Prevacid] 30 mg PO DAILY 03/02/23 08/28/23 Ibuprofen [Advil] 200 mg PO HS 06/14/23 08/28/23 Allergies Allergy/AdvReac Type Severity Reaction Status Date / Time clindamycin AdvReac joint pain Verified 08/28/23 12:18 Review of Systems ROS Statement: Those systems with pertinent positive or pertinent negative responses have been documented in the HPI. ROS Other: All systems not noted in ROS Statement are negative. Past Medical History Past Medical History: GERD/Reflux, Hyperlipidemia, Hypertension, Thyroid Disorder Additional Past Medical History / Comment(s): 40lb wt loss over the last year,poor appetite because stomach feels bloating after dinner, able to eat lunch,hx no longer needing to take b/p medications,Raynaud's History of Any Multi-Drug Resistant Organisms: None Reported Past Surgical History: Tubal Ligation Additional Past Surgical History / Comment(s): COLONOSCOPY Past Anesthesia/Blood Transfusion Reactions: No Reported Reaction Additional Past Anesthesia/Blood Transfusion Reaction / Comment(s): no hx blood transfusion Past Psychological History: No Psychological Hx Reported Smoking Status: Current every day smoker - Past Family History Father Family Medical History: Cancer Mother Family Medical History: Cancer General Exam Limitations: no limitations General appearance: alert, in no apparent distress Head exam: Present: atraumatic, normocephalic, normal inspection Eye exam: Present: normal appearance, PERRL, EOMI. Absent: scleral icterus, conjunctival injection, periorbital swelling Neck exam: Present: normal inspection. Absent: tenderness, meningismus, lymphadenopathy Respiratory exam: Present: normal lung sounds bilaterally. Absent: respiratory distress, wheezes, rales, rhonchi, stridor Cardiovascular Exam: Present: regular rate, normal rhythm, normal heart sounds. Absent: systolic murmur, diastolic murmur, rubs, gallop, clicks GI/Abdominal exam: Present: soft, tenderness, normal bowel sounds. Absent: distended, guarding, rebound, rigid Neurological exam: Present: alert, oriented X3, CN II-XII intact Skin exam: Present: warm, dry, intact, normal color. Absent: rash Course Vital Signs 08/28/23 08/28/23 11:20 14:38 Temperature 98.1 F Pulse Rate 74 105 H Respiratory 16 18 Rate Blood Pressure 120/82 115/67 O2 Sat by Pulse 94 L 93 L Oximetry Medical Decision Making - Medical Decision Making Was pt. sent in by a medical professional or institution (, PA, WAREHOUSE SELECTOR, urgent care, hospital, or [place] health care facility...) When possible be specific @ -No Did you speak to anyone other than the patient for history (EMS, parent, family, police, friend...)? What history was obtained from this source @ -No Did you review nursing and triage notes (agree or disagree)? Why? @ -I reviewed and agree with nursing and triage notes Were old charts reviewed (outside hosp., previous admission, EMS record, old EKG, old radiological studies, urgent care reports/EKG's, [place] health care facility records)? Report findings @ -No old charts were reviewed Differential Diagnosis (chest pain, altered mental status, abdominal pain women, abdominal pain men, vaginal bleeding, weakness, fever, dyspnea, syncope, headache, dizziness, GI bleed, back pain, seizure, CVA, palpatations, mental health, musculoskeletal)? @ -Differential Abdominal Pain Women: Appendicitis, Cholecystitis, diverticulosis, ischemic bowel, pancreatitis, hepatitis, UTI, gastroenteritis, AAA, incarcerated hernia, bowel obstruction, constipation, inflammatory bowel, hepatitis, peptic ulcer disease, splenic infarction, perforated viscus, vulvitis, ovarian torsion, PID, kidney stone, placenta abruption, this is not meant to be an all-inclusive list EKG interpreted by me (3pts min.). @ -As above X-rays interpreted by me (1pt min.). @ -None done CT interpreted by me (1pt min.). @ -CT abdomen pelvis shows evidence of dilated small bowel loop concerning for small bowel obstruction, there is evidence of pneumoperitoneum U/S interpreted by me (1pt. min.). @ -None done What testing was considered but not performed or refused? (CT, X-rays, U/S, labs)? Why? @ -None What meds were considered but not given or refused? Why? @ -None Did you discuss the management of the patient with other professionals (professionals i.e. , PA, WAREHOUSE SELECTOR, lab, RT, psych nurse, high school social studies tutor, cash room clerk, teacher, inshore undersea warfare officer, case picker)? Give summary @ -I did discuss case with on-call surgeon recommends observation fluids antibiotics analgesics no NG tube at this time did recommend medicine admission discussed the case with medicine in which they will be on consult. Was smoking cessation discussed for >3mins.? @ -No Was critical care preformed (if so, how long)? @ -No Were there social determinants of health that impacted care today? How? (Homelessness, low income, unemployed, alcoholism, drug addiction, transportation, low edu. Level, literacy, decrease access to med. care, long-term, rehab)? @ -No Was there de-escalation of care discussed even if they declined (Discuss DNR or withdrawal of care, Hospice)? DNR status @ -No What co-morbidities impacted this encounter? (DM, HTN, Smoking, COPD, CAD, Cancer, CVA, ARF, Chemo, Hep., AIDS, mental health diagnosis, sleep apnea, morbid obesity)? @ -None Was patient admitted / discharged? Hospital course, mention meds given and route, prescriptions, significant lab abnormalities, going to OR and other pertinent info. @ -Admitted patient has evidence of small bowel obstruction, pneumoperitoneum concerning as she may have ruptured gastric ulcer patient started Protonix, antibiotics IV fluids patient will have close observation, surgery evaluation. Undiagnosed new problem with uncertain prognosis? @ -No Drug Therapy requiring intensive monitoring for toxicity (Heparin, Nitro, Insulin, Cardizem)? @ -No Were any procedures done? @ -No Diagnosis/symptom? @ -Small bowel obstruction, pneumoperitoneum Acute, or Chronic, or Acute on Chronic? @ -Acute Uncomplicated (without systemic symptoms) or Complicated (systemic symptoms)? @ -Complicated Side effects of treatment? @ -No Exacerbation, Progression, or Severe Exacerbation? @ -No Poses a threat to life or bodily function? How? (Chest pain, USA, GA, pneumonia, PE, COPD, DKA, ARF, appy, cholecystitis, CVA, Diverticulitis, Homicidal, Suicidal, threat to staff... and all critical care pts) @ -Yes surgical risk - Lab Data Result diagrams: 08/28/23 12:08/28/23 12: Lab Results 08/28/23 08/28/23 08/28/23 Range/Units 12: 12: 12: WBC 12.9 H (3.8-10.6) k/uL RBC 4.29 (3.80-5.40) m/uL Hgb 13.1 (11.4-16.0) gm/dL Hct 40.5 (34.0-46.0) % MCV 94.3 (80.0-100.0) fL MCH 30.6 (25.0-35.0) pg MCHC 32.5 (31.0-37.0) g/dL RDW 14.0 (11.5-15.5) % Plt Count 288 (150-450) k/uL MPV 7.9 Neutrophils % 85 % Lymphocytes % 11 % Monocytes % 3 % Eosinophils % 1 % Basophils % 0 % Neutrophils # 10.9 H (1.3-7.7) k/uL Lymphocytes # 1.4 (1.0-4.8) k/uL Monocytes # 0.3 (0-1.0) k/uL Eosinophils # 0.1 (0-0.7) k/uL Basophils # 0.0 (0-0.2) k/uL PT 12.1 (10.0-12.5) sec INR 1.1 (<1.2) APTT 25.9 (22.0-30.0) sec Sodium 142 (137-145) mmol/L Potassium 3.4 L (3.5-5.1) mmol/L Chloride 103 (98-107) mmol/L Carbon Dioxide 30 (22-30) mmol/L Anion Gap 9 mmol/L BUN 18 H (7-17) mg/dL Creatinine 0.34 L (0.52-1.04) mg/dL Est GFR (CKD-EPI)AfAm >90 (>60 ml/min/1.73 sqM) Est GFR (CKD-EPI)NonAf >90 (>60 ml/min/1.73 sqM) Glucose 109 H (74-99) mg/dL Plasma Lactic Acid Juan Ramon (0.7-2.0) mmol/L Calcium 8.8 (8.4-10.2) mg/dL Magnesium 1.9 (1.6-2.3) mg/dL Total Bilirubin 0.7 (0.2-1.3) mg/dL AST 52 H (14-36) U/L ALT 51 H (4-34) U/L Alkaline Phosphatase 84 (38-126) U/L Total Protein 6.2 L (6.3-8.2) g/dL Albumin 3.8 (3.5-5.0) g/dL 08/28/23 Range/Units 12:01 WBC (3.8-10.6) k/uL RBC (3.80-5.40) m/uL Hgb (11.4-16.0) gm/dL Hct (34.0-46.0) % MCV (80.0-100.0) fL MCH (25.0-35.0) pg MCHC (31.0-37.0) g/dL RDW (11.5-15.5) % Plt Count (150-450) k/uL MPV Neutrophils % % Lymphocytes % % Monocytes % % Eosinophils % % Basophils % % Neutrophils # (1.3-7.7) k/uL Lymphocytes # (1.0-4.8) k/uL Monocytes # (0-1.0) k/uL Eosinophils # (0-0.7) k/uL Basophils # (0-0.2) k/uL PT (10.0-12.5) sec INR (<1.2) APTT (22.0-30.0) sec Sodium (137-145) mmol/L Potassium (3.5-5.1) mmol/L Chloride (98-107) mmol/L Carbon Dioxide (22-30) mmol/L Anion Gap mmol/L BUN (7-17) mg/dL Creatinine (0.52-1.04) mg/dL Est GFR (CKD-EPI)AfAm (>60 ml/min/1.73 sqM) Est GFR (CKD-EPI)NonAf (>60 ml/min/1.73 sqM) Glucose (74-99) mg/dL Plasma Lactic Acid Juan Ramon 1.4 (0.7-2.0) mmol/L Calcium (8.4-10.2) mg/dL Magnesium (1.6-2.3) mg/dL Total Bilirubin (0.2-1.3) mg/dL AST (14-36) U/L ALT (4-34) U/L Alkaline Phosphatase (38-126) U/L Total Protein (6.3-8.2) g/dL Albumin (3.5-5.0) g/dL - EKG Data -: EKG Interpreted by [facility] EKG Comments: EKG performed at 11: 31 sinus tachycardia rate of 109 NJ 167 QRS 89 QT/QTc 296/360 Disposition Clinical Impression: Small bowel obstruction, Pneumoperitoneum Disposition: ADMITTED IP TO THIS [facility] Condition: Serious Time of Disposition: 13:54
--- NOTE | 2023-08-28 13:28 | CT ---
EXAMINATION TYPE: CT abdomen pelvis w con DATE OF EXAM: 08/28/2023 COMPARISON: INDICATION: abd pain, prior obstruction . black vomit. DLP: 585 mGycm, Automated exposure control for dose reduction was used. CONTRAST: 80ml mL of Isovue 300. Study performed without Oral Contrast TECHNIQUE: Axial images were obtained from above the diaphragm to the pubic rami in the axial plane a t 5 mm thick sections. Reconstructed images are reviewed on the computer in the coronal plane. FINDINGS: Limited CT sections are obtained the lung bases. Pulmonary fibrosis is present. No acute pulmonary p rocess radiographically apparent. CT ABDOMEN: There are multiple fluid-filled and dilated small bowel loops throughout the abdomen. Fec al debris is within the colon. A zone of transition is not identified. However, there is some diminished size of the ilium in relati on to the dilated jejunum. Transition may be within the midabdomen. Free air is under the right diaphragm. Report was called to the ER PA by Dr. Wray by telephone at the time of interpretation. Liver: Normal Spleen: Normal Pancreas: Normal Adrenal glands: The adrenal glands are normal. Gallbladder: Normal Kidneys: No masses are evident. No hydronephrosis is present. No cysts are present. No renal stone s are identified Aorta: Vascular calcification is within the aorta. Inferior vena cava: Normal. CT PELVIS: Appendix: Not identified. Urinary bladder: Normal. Genitourinary structures: Uterus and ovaries are not clearly identified. Osseous structures: No suspicious lytic or sclerotic lesions. IMPRESSION: 1. Small bowel obstruction likely within the proximal ileum. 2. Pneumoperitoneum.
[2023-08-28] MEDS ORDERED: NALOXONE 0.4 MG/ML 1 ML VIAL IV PRN (13:54)
[2023-08-28] MEDS ORDERED: ONDANSETRON 4 MG/2 ML VIAL IVP PRN ×2 (13:54→21:22)
[2023-08-28] MEDS: MORPHINE SULFATE 2 MG/ML SYRINGE IVP ONE (14:47)
[2023-08-28] MEDS: SODIUM CHLORIDE 0.9% 1,000 ML IV SCH ×2 (14:52→21:37)
[2023-08-28] MEDS: PIPERACILLIN-TAZOBACTAM 3.375 GM in SODIUM CHLORIDE 0.9% 100 ML IVPB SCH (14:52)
--- NOTE | 2023-08-28 20:06 | P.CONS ---
History of Present Illness - Reason for Consult Consult date: 08/28/23 Medical management Requesting physician: Brooke Fontana - Chief Complaint Vomiting blood - History of Present Illness This is a pleasant 67-year-old patient, follows Dr. Villalobos. Chronic stable medical condition include GERD, hypertension, hyperlipidemia, hypothyroid. Patient is accompanied by her 2 daughters and son-in-law in the ER. Patient is seen in the hallway bed 18. Patient had an extensive workup, done both by Dr. Maddox and Dr. Ro Swift for abdominal pain. Patient also had been losing weight. Patient recently lost her . Has been eating better. Actually put on some weight. May 2023 she underwent a diagnostic laparoscopy by Dr. Maddox. It was unremarkable. This was done for small bowel obstruction. March 2023 patient underwent MR enterography-limited exam due to distended bowel loops motion and patient anatomy. Multiple dilators loops of small bowel was seen. There is some concern about fistula on the study. Pulmonary fibrotic changes. February [address] Ro Swift was found to have scattered sigmoid diverticulosis some broad based polyps were removed and normal-appearing terminal ileum. Biopsy:-Unremarkable. August 2022:-Linear erosions ulcerations in the distal esophagus consistent with LA grade C reflux esophagitis. This was done for severe epigastric pain and heartburn. Mild antral gastritis was noted. Patient yesterday started off with vomiting. Dark consistency some burgundy colored vomiting. Significant abdominal pain. Distention. Patient states her bowels have been totally erratic for some time. CT scan of the abdomen: Multiple fluid-filled and dilated small bowel loops throughout the abdomen. Fecal debris in the colon. Free air under the right diaphragm. Review of systems: GEN.: Weight loss EYES: None HEENT: None NECK: None RESPIRATORY: Shortness of breath with exertion specially CARDIOVASCULAR: None GASTROINTESTINAL: As above GENITOURINARY: None MUSCULOSKELETAL: Joint pains LYMPHATICS: None HEMATOLOGICAL: None Social history: 3 weeks ago her . Lives alone. Smokes a pack a day about 50 years. 3- 4 glasses of wine per week Physical examination: VITAL SIGNS: 98, 111, 20, 106/69, 92% on 3 L GENERAL: BMI 16.3, laying in bed uncomfortable. EYES: Pupils equal. Conjunctiva kathleen l. HEENT: External appearance of nose and ears normal, oral cavity grossly normal. NECK: JVD not raised; masses not palpable. HEART: First and second heart sounds are normal; no edema. LUNGS: Respiratory rate increased, basal fine crackles. ABDOMEN: Soft, epigastric tenderness, no guarding rigidity, liver spleen not palpable, no masses palpable. PSYCH: Alert and oriented x3; mood and affect n anxious l. MUSCULOSKELETAL:No Clubbing/cyanosis;muscles-grossly intact. Loss of muscle mass subcutaneous fat. Prominent bones. OA. NEUROLOGICAL: Cranial nerves grossly intact; no facial asymmetry, power and sensation grossly intact. LYMPHATICS: No lymph nodes palpable in the axilla and neck INVESTIGATIONS, reviewed in the clinical context: August 28, 2023: White count 12.9 hemoglobin 13.1 platelets 288 sodium 142 potassium 3.4 BUN 18 creatinine 0.34 EKG tracing personally reviewed by me-poor R wave progression. Sinus tachycardia CT scan of the abdomen: Showed multiple fluid-filled and dilated small bowel loops throughout the abdomen. Fecal debris in the colon. Free air under the right diaphragm. Assessment plan: -Probable viscus perforation. Patient been having dark-colored vomitus with some red vomitus since yesterday. Severe epigastric pain. Patient's EGD last year did show esophageal erosions. Patient also taking naproxen. Is a smoker. Possibility of distal gastric/duodenal ulcer. Has free under the right diaphragm. NPO. IV fluids. Surgery following -Pulmonary fibrosis, on clinical examination. Also prior CT scan as alluded to same. Will avoid systemic steroids. Nebulized Pulmicort 1 mg twice daily -COPD and a current smoker DuoNeb 4 times daily -Chronic nicotine dependence cigarette smoker Nicotine patch -Severe protein calorie malnutrition Consult dietitian -Abnormal EKG 2D echocardiogram -Severe GERD PPI -Chronic esophagitis, from smoking, NSAIDs PPI -Full code Care was discussed with the patient and family at the bedside. NPO. IV fluids. Patient is a moderate risk for surgery given her very low BMI smoker and comorbidities. But given the urgency of the presentation she is otherwise stable to proceed with surgery. Needs perioperative cardiopulmonary monitoring Thank you Dr. Fontana Past Medical History Past Medical History: GERD/Reflux, Hyperlipidemia, Hypertension, Thyroid Disorder Additional Past Medical History / Comment(s): 40lb wt loss over the last year,poor appetite because stomach feels bloating after dinner, able to eat lunch,hx no longer needing to take b/p medications,Raynaud's History of Any Multi-Drug Resistant Organisms: None Reported Past Surgical History: Tubal Ligation Additional Past Surgical History / Comment(s): COLONOSCOPY Past Anesthesia/Blood Transfusion Reactions: No Reported Reaction Additional Past Anesthesia/Blood Transfusion Reaction / Comm: no hx blood transfusion Past Psychological History: No Psychological Hx Reported Smoking Status: Current every day smoker Past Alcohol Use History: Occasional Additional Past Alcohol Use History / Comment(s): SMOKES 1PPD SINCE AGE 18,drinks 1-2 drinks per weeks Past Drug Use History: None Reported - Past Family History Father Family Medical History: Cancer Mother Family Medical History: Cancer Medications and Allergies Home Medications Medication Instructions Recorded Confirmed Type Temazepam [Restoril] 15 mg PO HS 09/10/22 08/28/23 History Lansoprazole [Prevacid] 30 mg PO DAILY 03/02/23 08/28/23 History Ibuprofen [Advil] 200 mg PO HS 06/14/23 08/28/23 History Allergies Allergy/AdvReac Type Severity Reaction Status Date / Time clindamycin AdvReac joint pain Verified 08/28/23 12:18 Physical Exam Vitals: Vital Signs Temp Pulse Resp BP BP Pulse Ox 08/28/23 18:08 97.8 F 107/69 08/28/23 17:40 98.0 F 111 H 20 106/69 92 L 08/28/23 14:38 105 H 18 115/67 93 L 08/28/23 11:20 98.1 F 74 16 120/82 94 L Intake and Output 08/28/23 08/28/23 08/28/23 06:59 14:59 22:59 Other: Weight 41.73 kg 41.73 kg Results CBC & Chem 7: 08/28/23 12:01 08/28/23 12:01 Labs: Abnormal Lab Results - Last 24 Hours (Table) 08/28/23 08/28/23 Range/Units 12:01 12:01 WBC 12.9 H (3.8-10.6) k/uL Neutrophils # 10.9 H (1.3-7.7) k/uL Potassium 3.4 L (3.5-5.1) mmol/L BUN 18 H (7-17) mg/dL Creatinine 0.34 L (0.52-1.04) mg/dL Glucose 109 H (74-99) mg/dL AST 52 H (14-36) U/L ALT 51 H (4-34) U/L Total Protein 6.2 L (6.3-8.2) g/dL
--- NOTE | 2023-08-28 20:20 | XR ---
EXAMINATION TYPE: XR chest 1V DATE OF EXAM: 08/28/2023 7:44 PM CLINICAL INDICATION:Female, 67 years old with history of Possible pulmonary fibrosis; [facility] COMPARISON: Chest radiographs from 03/02/2023 TECHNIQUE: XR chest 1V Frontal view of the chest. FINDINGS: Lungs/Pleura: Prominent interstitial lung markings are seen scattered throughout the lungs. No eviden ce of focal consolidation, pneumothorax or pleural effusion. Pulmonary vascularity: Unremarkable. Heart/mediastinum: Cardiomediastinal silhouette is unremarkable. Musculoskeletal: No acute osseous pathology. IMPRESSION: Fibrotic change and not significantly changed from 03/02/2023.
[2023-08-28] MEDS: ENOXAPARIN 40 MG/0.4 ML SYRINGE SQ SCH (21:15)
[2023-08-28] MEDS: PANTOPRAZOLE 40 MG/10 ML VIAL IV SCH (21:16)
[2023-08-28] MEDS: LACTATED RINGERS 1,000 ML IV SCH (21:16)
[2023-08-28] MEDS: NICOTINE 21MG/24HR PATCH TRANSDERM SCH (21:17)
[2023-08-28] MEDS: MORPHINE SULFATE 2 MG/ML SYRINGE IV PRN (21:17)
[2023-08-28] MEDS: TEMAZEPAM 15 MG CAP PO SCH (21:36)
[2023-08-28] MEDS: IPRATROPIUM-ALBUTEROL 3 ML NEB INHALATION SCH (22:19)
--- NOTE | 2023-08-28 23:21 | P.GSHP ---
History of Present Illness H&P Date: 08/28/23 CHIEF COMPLAINT: Abdominal pain HISTORY OF PRESENT ILLNESS: The patient is a 67-year-old female who presents with acute on chronic abdominal pain ongoing for over 5 to 6 months. Patient recently had diagnostic laparoscopy done by About 6 weeks ago. Her family is at bedside given additional history where she just lost her less than 2 weeks ago. Patient reports having a bowel movement yesterday. She reports when she eats her abdominal swallows. She reports primarily epigastric pain and lower abdominal pain. She reports is tolerable. Yesterday, patient had intractable nausea and vomiting which is now resolved. She is able to ambulate without moderate pain. Additional diagnostic studies demonstrates bowel obstruction with overlapping pneumoperitoneum. Incidentally, family reports that patient was being arranged for outpatient follow-up at [facility] due to her chronic abdominal pain of unclear etiology. PAST MEDICAL HISTORY: See list and reviewed PAST SURGICAL HISTORY: See list and reviewed MEDICATIONS: See list and reviewed ALLERGIES: See list and reviewed SOCIAL HISTORY: See list and reviewed FAMILY HISTORY: See list and reviewed REVIEW OF ORGAN SYSTEMS: CONSTITUTIONAL: No fevers or chills. Underweight, BMI 16.3. EYES: Denies any trouble with vision. No glasses. HEENT: No difficulties with hearing. No nosebleeds. No difficulty swallowing. RESPIRATORY: Denies pneumonia. Denies any troubles with breathing or dyspnea on exertion. CARDIOVASCULAR: Denies any chest pain, palpitations, or recent heart attacks. GASTROINTESTINAL: Denies fatty food intolerance. Denies change in bowel habits and gas bloat. GENITOURINARY: Denies any blood in urine or increased urinary frequency. NEUROLOGICAL: Denies any numbness or tingling along the distal extremities. No seizure disorders or headaches. MUSCULOSKELETAL: Denies any back pain, stiffness or joint arthritis. SKIN: No current skin cancer. No rash. PSYCHIATRIC: Denies current depression or suicidal thoughts. ENDOCRINE: Denies current thyroid disorders. Denies any blood sugar glucose intolerance. HEME/LYMPHATIC: Denies any lumps and bumps around the neck. No recent deep venous thrombosis. ALLERGY/IMMUNOLOGY: No immunoglobulin therapy. No immune deficiencies. BREAST: Denies current breast lumps, pain or nipple discharge. PHYSICAL EXAM: VITALS: Reviewed CONSTITUTIONAL: Well developed and in no acute distress. EYES: Conjuctivae without sclera icterus. Extraocular movements grossly intact. HEAD, EARS, NOSE, THROAT: Moist buccal mucosa. Head is atraumatic, normocephalic. Hears conversational speech. No nasal drainage. NECK: Supple. No JV distention. No thyroidomegaly. RESPIRATORY: Non-labored respirations and equal bilateral excursions. No gross wheezes. CARDIOVASCULAR: Palpable 2+ radial pulses. ABDOMEN: No diffuse peritonitis. Mild tenderness epigastrium and lower abdomen. LYMPH: No neck lymphadenopathy. MUSCULOSKELETAL: No clubbing cyanosis or edema SKIN: Warm and well perfused with good skin turgor. NEUROLOGIC: Cranial nerves II through XII grossly intact. No focal or lateralizing signs. PSYCH: Appropriate affect. Alert and oriented to person, place and time. Displays appropriate insight. CLINCAL LABS: Reviewed. WBC elevated over 12,000. IMAGING: Independently reviewed. RADIOLOGY: Report reviewed RECORDS: previous old records reviewed ASSESSMENT: 1. Abdominal pain with pneumoperitoneum PLAN: 1. IV fluid hydration. 2. N.p.o. status anticipated for 3 days due to possible perforated gastric ulcer, localized 3. IV antibiotics 4. Consultation infectious disease for antibiotic management 5. Hold surgical invention at this time due to high risk and patient is clinically stable 6. Inpatient hospitalization anticipated for 3 to 5 days 7. PICC line for TPN antibiotics ADVANCE DIRECTIVE: Thank you for this kind consultation. Past Medical History Past Medical History: GERD/Reflux, Hyperlipidemia, Hypertension, Thyroid Disorder Additional Past Medical History / Comment(s): 40lb wt loss over the last year,poor appetite because stomach feels bloating after dinner, able to eat lunch,hx no longer needing to take b/p medications,Raynaud's History of Any Multi-Drug Resistant Organisms: None Reported Past Surgical History: Tubal Ligation Additional Past Surgical History / Comment(s): COLONOSCOPY Past Anesthesia/Blood Transfusion Reactions: No Reported Reaction Additional Past Anesthesia/Blood Transfusion Reaction / Comment(s): no hx blood transfusion Past Psychological History: No Psychological Hx Reported Smoking Status: Current every day smoker Past Alcohol Use History: Occasional Additional Past Alcohol Use History / Comment(s): SMOKES 1PPD SINCE AGE 18,drinks 1-2 drinks per weeks Past Drug Use History: None Reported - Past Family History Father Family Medical History: Cancer Mother Family Medical History: Cancer Medications and Allergies Home Medications Medication Instructions Recorded Confirmed Type Temazepam [Restoril] 15 mg PO HS 05/15/23 05/01/24 History Lansoprazole [Prevacid] 30 mg PO DAILY 03/02/23 08/28/23 History Ibuprofen [Advil] 200 mg PO HS 06/14/23 08/28/23 History Allergies Allergy/AdvReac Type Severity Reaction Status Date / Time clindamycin AdvReac joint pain Verified 08/28/23 12:18 Surgical - Exam Vital Signs Temp Pulse Resp BP Pulse Ox 98.1 F 74 16 120/82 94 L 08/28/23 11:20 08/28/23 11:20 08/28/23 11:20 08/28/23 11:20 08/28/23 11:20 Results - Labs 08/28/23 12:01 08/28/23 12:01 Abnormal Lab Results - Last 24 Hours (Table) 08/28/23 08/28/23 Range/Units 12:01 12:01 WBC 12.9 H (3.8-10.6) k/uL Neutrophils # 10.9 H (1.3-7.7) k/uL Potassium 3.4 L (3.5-5.1) mmol/L BUN 18 H (7-17) mg/dL Creatinine 0.34 L (0.52-1.04) mg/dL Glucose 109 H (74-99) mg/dL AST 52 H (14-36) U/L ALT 51 H (4-34) U/L Total Protein 6.2 L (6.3-8.2) g/dL Diabetes panel 08/28/23 Range/Units 12:01 Sodium 142 (137-145) mmol/L Potassium 3.4 L (3.5-5.1) mmol/L Chloride 103 (98-107) mmol/L Carbon Dioxide 30 (22-30) mmol/L BUN 18 H (7-17) mg/dL Creatinine 0.34 L (0.52-1.04) mg/dL Glucose 109 H (74-99) mg/dL Calcium 8.8 (8.4-10.2) mg/dL AST 52 H (14-36) U/L ALT 51 H (4-34) U/L Alkaline Phosphatase 84 (38-126) U/L Total Protein 6.2 L (6.3-8.2) g/dL Albumin 3.8 (3.5-5.0) g/dL Calcium panel 08/28/23 Range/Units 12:01 Calcium 8.8 (8.4-10.2) mg/dL Albumin 3.8 (3.5-5.0) g/dL Pituitary panel 08/28/23 Range/Units 12:01 Sodium 142 (137-145) mmol/L Potassium 3.4 L (3.5-5.1) mmol/L Chloride 103 (98-107) mmol/L Carbon Dioxide 30 (22-30) mmol/L BUN 18 H (7-17) mg/dL Creatinine 0.34 L (0.52-1.04) mg/dL Glucose 109 H (74-99) mg/dL Calcium 8.8 (8.4-10.2) mg/dL Adrenal panel 08/28/23 Range/Units 12:01 Sodium 142 (137-145) mmol/L Potassium 3.4 L (3.5-5.1) mmol/L Chloride 103 (98-107) mmol/L Carbon Dioxide 30 (22-30) mmol/L BUN 18 H (7-17) mg/dL Creatinine 0.34 L (0.52-1.04) mg/dL Glucose 109 H (74-99) mg/dL Calcium 8.8 (8.4-10.2) mg/dL Total Bilirubin 0.7 (0.2-1.3) mg/dL AST 52 H (14-36) U/L ALT 51 H (4-34) U/L Alkaline Phosphatase 84 (38-126) U/L Total Protein 6.2 L (6.3-8.2) g/dL Albumin 3.8 (3.5-5.0) g/dL
[2023-08-29] MEDS: ACETAMINOPHEN IV (For NPO) 500 MG in EMPTY BAG 1 BAG IVPB SCH (00:39)
[2023-08-29] MEDS: HEPARIN SODIUM,PORCINE 5,000 UNIT/ML 1 ML VIAL SQ SCH (08:06)
[2023-08-29] MEDS: BUDESONIDE 1 MG/2 ML NEBU INHALATION SCH (08:11)
[2023-08-29 08:44] LABS: Basophils # (A) 0.01 X 10*3/uL (0.00-0.10); Basophils % (A) 0.2 %; Eosinophils # (A) 0.04 X 10*3/uL (0.04-0.35); Eosinophils % (A) 0.8 %; HCT 32.1 % (37.2-46.3); HGB 10.3 g/dL (12.0-15.0); Lymphocytes # (A) 1.86 X 10*3/uL (0.90-5.00); Lymphocytes % (A) 37.5 %; MCHC 32.1 g/dL (32.0-37.0); MCV 96.7 FL (80.0-97.0); Mean Platelet Volume 10.1 FL (9.5-12.2); Monocytes # (A) 0.17 X 10*3/uL (0.20-1.00); Monocytes % (A) 3.4 %; NRBC Per 100 WBC 0 X 10*3/uL (0.00-0.01); Neutrophils # (A) 2.87 X 10*3/uL (1.80-7.70); Neutrophils % (A) 57.9 %; Platelet Count 226 X 10*3/uL (140-440); RBC 3.32 X 10*6/uL (4.10-5.20); RDW 14.6 % (11.5-14.5); WBC 4.96 X 10*3/uL (4.50-10.00)
[2023-08-29 09:01] LABS: ALT 36 U/L (8-44); AST 28 U/L (13-35); Albumin 3.1 g/dL (3.8-4.9); Albumin/Globulin Ratio 2.21 Ratio (1.60-3.17); Alkaline Phosphatase 66 U/L (41-126); BUN/Creat Ratio 15.25 Ratio (12.00-20.00); Blood Urea Nitrogen 12.2 mg/dL (9.0-27.0); Calcium 7.5 mg/dL (8.7-10.3); Chloride 108 mmol/L (96-109); Globulin 1.4 g/dL (1.6-3.3); Glucose 108 mg/dL (70-110); Potassium 3.1 mmol/L (3.5-5.5); Sodium 142 mmol/L (135-145); Total Bilirubin 0.4 mg/dL (0.3-1.2); Total Protein 4.5 g/dL (6.2-8.2)
[2023-08-29 09:54] LABS: INR 1.19 sec (0.93-1.11); Prothrombin Time 12.7 sec (9.9-11.9)
[2023-08-29] MEDS: LIDOCAINE 1% INJ 10MG/ML (20 ML MDV) SQ ONE (10:45)
--- NOTE | 2023-08-29 10:53 | P.OP ---
Date of Procedure: 08/29/23 Description of Procedure: Date of Procedure: Preoperative Diagnosis: Need for long-term IV antibiotic access. Postoperative Diagnosis: Same. Procedure(s) Performed: Ultrasound-guided cannulation left basilic vein. Insertion of peripherally inserted central catheter under fluoroscopic guidance. Anesthesia: local (1% Xylocaine.) Surgeon: Virgie Estimated Blood Loss (ml): 5 IV fluids (ml): 0 Urine output (ml): 0 Pathology: none sent Condition: stable Disposition: no change Indications for Procedure: Patient is a 67-year-old female admitted with potential GI bleed. Patient will require nutritional support as well as IV antibiotics. Patient is offered a PICC line to allow for intravenous administration. Description of Procedure: Patient was brought to the special procedure suite. The left upper extremity sterilely prepped and draped in usual manner. Ultrasound was utilized to identify the basilic vein which was normally compressible free of visible thrombus. Permenant image was stored. 1% Xylocaine was utilized for local anesthesia tissues overlying the vein. Through this anesthetized area and with the aid of ultrasound a micropuncture needle was utilized to cannulate the vein. Once cannulated, Softip guidewire was advanced into the vein. The needle was withdrawn and a micropuncture sheath and dilator advanced over the guidewire. The guidewire was withdrawn and exchanged for the PICC guidewire and measured 45 cm to the cavoatrial junction. The catheter was cut to size and advanced into the cavoatrial junction without resistance. The sheath was peeled away. Blood was easily withdrawn through the catheter and the catheter was then flushed with heparinized saline solution and secured to the skin. Patient tolerated procedure well and was returned to their room in satisfactory and stable condition.
--- NOTE | 2023-08-29 11:25 | P.PN ---
Subjective Progress Note Date: 08/29/23 CHIEF COMPLAINT: Abdominal pain HISTORY OF PRESENT ILLNESS: The patient is a 67-year-old female who presents with acute on chronic abdominal pain ongoing for over 5 to 6 months. Patient recently had diagnostic laparoscopy done by Dr. Maddox 6 weeks ago. Patient reports that her pain is less today than yesterday. Pain mostly in the epigastric area. She still feels bloated. She is having flatus. No bowel movement today. Denies any nausea or vomiting. She is scheduled for PICC line placement today and to start TPN for nutrition support. Patient is tolerating ice chips and popsicles. Afebrile mild tachycardia yesterday now resolved. WBC is down from 12.9-4.96 Hgb 13 down to 10.3 platelets 226 INR 1.19 sodium 142 potassium 3.1 creatinine 0.8 LFTs normalized PHYSICAL EXAM: VITAL SIGNS: Reviewed GENERAL: Well-developed in no acute distress. HEENT: No sclera icterus. Extraocular movements grossly intact. Moist buccal mucosa. Head is atraumatic, normocephalic. Hears conversational speech. No nasal drainage. NECK: Supple without lymphadenopathy. CHEST: Non-labored respirations and equal bilateral excursions. CARDIOVASCULAR: Palpable 2+ radial pulses. ABDOMEN: Soft. Mildly distended. Tenderness palpation epigastric area MUSCULOSKELETAL: No clubbing or cyanosis. NEUROLOGIC: No focal or lateralizing signs. Cranial nerves II through XII grossly intact. PSYCH: Appropriate affect. Alert and oriented to person, place and time. SKIN: Well perfused. Good skin turgor. ASSESSMENT: 1. Abdominal pain with pneumoperitoneum 2. Possible perforated gastric ulcer 3. Hypokalemia PLAN: -Keep patient n.p.o. except for ice chips and popsicles for 3 days due to possible perforated gastric ulcer -Patient scheduled for PICC line placement today -Consult dietitian for TPN for nutrition support -Continue IV antibiotics -Continue IV fluids -Nicotine patch discontinued and removed from patient's skin today. Recommend to avoid nicotine, it can exacerbate the gastric ulcer -Continue IV Protonix -Replace potassium -DVT prophylaxis subcu heparin Physician Legal Administrative Assistant note has been reviewed by physician. Signing provider agrees with the documented findings, assessment, and plan of care. Objective - Vital Signs Vital signs: Vital Signs Temp 97.7 F 08/29/23 02:00 Pulse 79 08/29/23 07:02 Resp 18 08/29/23 07:02 BP 105/66 08/29/23 07:02 Pulse Ox 95 08/29/23 07:02 FiO2 Intake & Output 08/28/23 08/29/23 08/29/23 18:59 06:59 18:59 Weight 41.73 kg Other: Voiding Method Toilet # Voids 2 - Labs CBC & Chem 7: 08/29/23 04:34 08/29/23 04:34 Labs: Abnormal Lab Results - Last 24 Hours (Table) 08/28/23 08/28/23 08/29/23 Range/Units 12:01 12:01 04:34 WBC 12.9 H (3.8-10.6) k/uL RBC 3.32 L (4.10-5.20) X 10*6/uL Hgb 10.3 L (12.0-15.0) g/dL Hct 32.1 L (37.2-46.3) % RDW 14.6 H (11.5-14.5) % Neutrophils # 10.9 H (1.3-7.7) k/uL Monocytes # 0.17 L (0.20-1.00) X 10*3/uL PT (9.9-11.9) sec INR (0.93-1.11) sec Potassium 3.4 L (3.5-5.1) mmol/L BUN 18 H (7-17) mg/dL Creatinine 0.34 L (0.52-1.04) mg/dL Glucose 109 H (74-99) mg/dL Calcium (8.7-10.3) mg/dL AST 52 H (14-36) U/L ALT 51 H (4-34) U/L Total Protein 6.2 L (6.3-8.2) g/dL Albumin (3.8-4.9) g/dL Globulin (1.6-3.3) g/dL 08/29/23 08/29/23 Range/Units 04:34 04:34 WBC (3.8-10.6) k/uL RBC (4.10-5.20) X 10*6/uL Hgb (12.0-15.0) g/dL Hct (37.2-46.3) % RDW (11.5-14.5) % Neutrophils # (1.3-7.7) k/uL Monocytes # (0.20-1.00) X 10*3/uL PT 12.7 H (9.9-11.9) sec INR 1.19 H (0.93-1.11) sec Potassium 3.1 L (3.5-5.1) mmol/L BUN (7-17) mg/dL Creatinine (0.52-1.04) mg/dL Glucose (74-99) mg/dL Calcium 7.5 L (8.7-10.3) mg/dL AST (14-36) U/L ALT (4-34) U/L Total Protein 4.5 L (6.3-8.2) g/dL Albumin 3.1 L (3.8-4.9) g/dL Globulin 1.4 L (1.6-3.3) g/dL
--- NOTE | 2023-08-29 11:47 | IR ---
EXAMINATION TYPE: IR cvc insert >=5 years DATE OF EXAM: 08/29/2023 COMPARISON: NONE HISTORY: Fluoroscopy time. Fluoroscopy was provided to the referring clinician.
--- NOTE | 2023-08-29 12:06 | CA ---
Transthoracic Echo Report Name: Jhoana Fitzgerald Age: 67 Gender: F : 1955 Exam Date: 08/29/2023 08:10 Exam Location: [facility] Ht (in): 63 Wt (lb): 92 Ordering Physician: Josh Lozoya MD Attending/Referring Phys: Model And Dye Person Robyn Albright RDCS Procedure CPT: Indications: Abnormal EKG smoker Cardiac Hx: Technical Quality: Good Contrast 1: Total Dose (mL): Contrast 2: Total Dose (mL): MEASUREMENTS (Male / Female) Normal Values 2D ECHO LV Diastolic Diameter PLAX 4.1 cm 4.2 - 5.9 / 3.9 - 5.3 cm LV Systolic Diameter PLAX 2.6 cm IVS Diastolic Thickness 0.8 cm 0.6 - 1.0 / 0.6 - 0.9 cm LVPW Diastolic Thickness 1.0 cm 0.6 - 1.0 / 0.6 - 0.9 cm LV Relative Wall Thickness 0.4 RV Internal Dim ED PLAX 1.5 cm LA Systolic Diameter LX 2.9 cm 3.0 - 4.0 / 2.7 - 3.8 cm LV Diastolic Volume MOD BP 50.4 cm??? 67 - 155 / 56 - 104 cm??? LV Systolic Volume MOD BP 16.2 cm??? 22 - 58 / 19 - 49 cm??? LV Ejection Fraction MOD BP 67.8 % >= 55 % LV Cardiac Index MOD BP 2026.3 cm???/min???m??? LV Diastolic Volume MOD 4C 50.9 cm??? LV Systolic Volume MOD 4C 15.2 cm??? LV Ejection Fraction MOD 4C 70.1 % LV Cardiac Index MOD 4C 2115.0 cm???/min???m??? LV Diastolic Length 4C 6.2 cm LV Systolic Length 4C 4.9 cm LV Diastolic Volume MOD 2C 46.7 cm??? LV Systolic Volume MOD 2C 16.9 cm??? LV Ejection Fraction MOD 2C 63.8 % LV Cardiac Index MOD 2C 1768.5 cm???/min???m??? LV Diastolic Length 2C 6.6 cm LV Systolic Length 2C 5.0 cm LA Volume 35.8 cm??? 18 - 58 / 22 - 52 cm??? LA Volume Index 26.5 cm???/m??? 16 - 28 cm???/m??? M-MODE Aortic Root Diameter MM 2.9 cm LA Systolic Diameter MM 2.7 cm LA Ao Ratio MM 0.9 AV Cusp Separation MM 1.7 cm DOPPLER AV Peak Velocity 105.6 cm/s AV Peak Gradient 4.5 mmHg MV Area PHT 4.5 cm??? Mitral E Point Velocity 71.3 cm/s Mitral A Point Velocity 66.9 cm/s Mitral E to A Ratio 1.1 MV Deceleration Time 168.4 ms TR Peak Velocity 325.5 cm/s TR Peak Gradient 42.4 mmHg Right Ventricular Systolic Press 52.0 mmHg FINDINGS Left Ventricle Left ventricular ejection fraction is estimated at 55-60 %. Normal Left ventricular size, wall thickness, systolic function with no obvious regional wall motion abnormalities. Normal Left ventricular diastolic filling pattern. Right Ventricle Severe right ventricular dilatation. Mid to apex hypokinetic right ventricular. Moderate to severe pulmonary hypertension. Right Atrium Moderate right atrial dilatation. Left Atrium Normal left atrial size. Mitral Valve Structurally normal mitral valve. Trace to mild mitral regurgitation. Aortic Valve Trileaflet aortic valve. No aortic valve stenosis or regurgitation. Tricuspid Valve Tricuspid valve prolapse.moderate tricuspid regurgitation. Pulmonic Valve Structurally normal pulmonic valve. No pulmonic stenosis. No pulmonic regurgitation. Pericardium Small pericardial effusion. Aorta Normal size aortic root and proximal ascending aorta. CONCLUSIONS Normal LV systolic function Normal mitral valve leaflets with mild mitral regurgitation Trileaflet aortic valve with no stenosis or regurgitation Thickened tricuspid valve leaflets with moderate tricuspid regurgitation Small circumferential pericardial effusion Previewed by: Dr. Giuseppe Gonzalze MD (Electronically Signed) Final Date: 29 Aug 2023 12:05
[2023-08-29 12:40] LABS: Ionized Calcium 4.4 mg/dL (4.5-5.3)
[2023-08-29 13:01] LABS: Magnesium 1.8 mg/dL (1.6-2.3); Phosphorus 2.7 mg/dL (2.5-4.5)
[2023-08-29 13:07] VITALS: BMI 16.2
[2023-08-29] MEDS: POTASSIUM CHLORIDE 20 MEQ in WATER FOR INJECTION 1 100ML.BAG IVPB SCH (16:03)
[2023-08-29] MEDS: MVI, ADULT NO.4 WITH VIT K 10 ML, TRACE (CONC-1ML/DOSE) 1 ML in AMINO ACID 5%-D20W+LYTE... IV SCH (16:25)
--- NOTE | 2023-08-29 20:10 | P.PN ---
Progress Note - Text Progress Note Date: 08/29/23 - Chief Complaint Vomiting blood - History of Present Illness This is a pleasant 67-year-old patient, follows Dr. Villalobos. Chronic stable medical condition include GERD, hypertension, hyperlipidemia, hypothyroid. Patient is accompanied by her 2 daughters and son-in-law in the ER. Patient is seen in the hallway bed 18. Patient had an extensive workup, done both by Dr. Maddox and Dr. Ro Swift for abdominal pain. Patient also had been losing weight. Patient recently lost her . Has been eating better. Actually put on some weight. May 2023 she underwent a diagnostic laparoscopy by Dr. Maddox. It was unremarkable. This was done for small bowel obstruction. March 2023 patient underwent MR enterography-limited exam due to distended bowel loops motion and patient anatomy. Multiple dilators loops of small bowel was seen. There is some concern about fistula on the study. Pulmonary fibrotic changes. February [address] Ro Swift was found to have scattered sigmoid diverticulosis some broad based polyps were removed and normal-appearing terminal ileum. Biopsy:-Unremarkable. August 2022:-Linear erosions ulcerations in the distal esophagus consistent with LA grade C reflux esophagitis. This was done for severe epigastric pain and heartburn. Mild antral gastritis was noted. Patient yesterday started off with vomiting. Dark consistency some burgundy colored vomiting. Significant abdominal pain. Distention. Patient states her bowels have been totally erratic for some time. CT scan of the abdomen: Multiple fluid-filled and dilated small bowel loops throughout the abdomen. Fecal debris in the colon. Free air under the right diaphragm. August 2: Abdominal pain better. Feels slightly better. Family at the bedside. Per surgery patient strictly NPO. Nicotine patch was discontinued as it was felt it might interfere with healing per surgery. Spoke to the family to bring in cinnamon sticks. For insomnia instead of p.o. Restoril will give Valium 2.5 mg nightly IV. Active Medications Albuterol/Ipratropium (Ipratropium-Albuterol 3 Ml Neb) 3 ml INHALATION RT-QID [facility] Last Admin: 08/29/23 15:28 Dose: Not Given Budesonide (Budesonide 1 Mg/2 Ml Nebu) 1 mg INHALATION RT-BID [facility] Last Admin: 08/29/23 08:11 Dose: Not Given Heparin Sodium (Porcine) (Heparin Sodium,Porcine 5,000 Unit/Ml 1 Ml Vial) 5,000 unit SQ Q12HR [facility] Last Admin: 08/29/23 08:06 Dose: Not Given Piperacillin Sod/Tazobactam (Sod 3.375 gm/ Sodium Chloride) 100 mls @ 25 mls/hr IVPB Q8HR [facility]; Protocol Last Admin: 08/29/23 16:08 Dose: 25 mls/hr Sodium Chloride (Saline 0.9%) 1,000 mls @ 75 mls/hr IV .[id number] [facility] Last Admin: 08/29/23 16:03 Dose: 75 mls/hr Parenteral Vitamin Supplement 10 ml/ Zinc/Copper/Manganese/Selenium 1 ml/ Amino Ac/Electrol/Dextrose/Calcium 1,011 mls @ 30 mls/hr IV .Q24H [facility] Stop: 08/30/23 13:59 Last Admin: 08/29/23 16:25 Dose: 30 mls/hr Parenteral Vitamin Supplement 10 ml/ Zinc/Copper/Manganese/Selenium 1 ml/ Amino Ac/Electrol/Dextrose/Calcium 1,011 mls @ 50 mls/hr IV .[id number] [facility] Fat Emulsion Intravenous (Lipids 20%) 250 mls @ 20.833 mls/hr IV MoFr [facility] Morphine Sulfate (Morphine Sulfate 2 Mg/Ml Syringe) 2 mg IV Q4HR PRN PRN Reason: Severe Pain (Scale 7 to 10) Last Admin: 08/29/23 08:21 Dose: 2 mg Naloxone HCl (Naloxone 0.4 Mg/Ml 1 Ml Vial) 0.2 mg IV Q2M PRN PRN Reason: Opioid Reversal Ondansetron HCl (Ondansetron 4 Mg/2 Ml Vial) 4 mg IVP Q6HR PRN PRN Reason: Nausea Pantoprazole Sodium (Pantoprazole 40 Mg/10 Ml Vial) 40 mg IV BID [facility] Last Admin: 08/29/23 08:13 Dose: 40 mg Social history: 3 weeks ago her . Lives alone. Smokes a pack a day about 50 years. 3- 4 glasses of wine per week Physical examination: VITAL SIGNS: 97 point 0.7, 79, 18, 105/66, 95% on 3 L GENERAL: BMI 16.3, laying in bed tired EYES: Pupils equal. Conjunctiva kathleen l. HEENT: External appearance of nose and ears normal, oral cavity grossly normal. NECK: JVD not raised; masses not palpable. HEART: First and second heart sounds are normal; no edema. LUNGS: Respiratory rate increased, basal fine crackles. ABDOMEN: Soft, decreased epigastric tenderness, no guarding rigidity, liver s pleen not palpable, no masses palpable. PSYCH: Alert and oriented x3; mood and affect tired MUSCULOSKELETAL:No Clubbing/cyanosis;muscles-grossly intact. Loss of muscle mass subcutaneous fat. Prominent bones. OA. INVESTIGATIONS, reviewed in the clinical context: 2D echocardiogram: EF 55 to 60%. Severe right ventricle dilatation. Moderate to severe pulmonary hypertension. Tricuspid valve prolapse with moderate tricuspid regurgitation. August 28: White count 4.9 hemoglobin 10.3 platelets 226 sodium 142 potassium 3.1 creatinine 0.8 albumin 3.1 August 28, 2023: White count 12.9 hemoglobin 13.1 platelets 288 sodium 142 potassium 3.4 BUN 18 creatinine 0.34 EKG tracing personally reviewed by me-poor R wave progression. Sinus tachycardia CT scan of the abdomen: Showed multiple fluid-filled and dilated small bowel loops throughout the abdomen. Fecal debris in the colon. Free air under the right diaphragm. Assessment plan: -Probable viscus perforation. Patient been having dark-colored vomitus with some red vomitus since yesterday. Severe epigastric pain. Patient's EGD last year did show esophageal erosions. Patient also taking naproxen. Is a smoker. Possibility of distal gastric/duodenal ulcer. Has free under the right diaphragm.: Clinically better some NPO. IV fluids. Dr. Fontana following -Pulmonary fibrosis, on clinical examination. Also prior CT scan as alluded to same. Will avoid systemic steroids. Nebulized Pulmicort 1 mg twice daily -COPD and a current smoker DuoNeb 4 times daily. 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 Cinnamon sticks in place of nicotine patch. Valium for insomnia. Patient remains strictly n.p.o. being followed by Dr. Dennis. Spoke to the patient and family at the bedside. Past Medical History Past Medical History: GERD/Reflux, Hyperlipidemia, Hypertension, Thyroid Disorder Additional Past Medical History / Comment(s): 40lb wt loss over the last year,poor appetite because stomach feels bloating after dinner, able to eat lunch,hx no longer needing to take b/p medications,Raynaud's History of Any Multi-Drug Resistant Organisms: None Reported Past Surgical History: Tubal Ligation Additional Past Surgical History / Comment(s): COLONOSCOPY Past Anesthesia/Blood Transfusion Reactions: No Reported Reaction Additional Past Anesthesia/Blood Transfusion Reaction / Comm: no hx blood transfusion Past Psychological History: No Psychological Hx Reported Smoking Status: Current every day smoker Past Alcohol Use History: Occasional Additional Past Alcohol Use History / Comment(s): SMOKES 1PPD SINCE AGE 18,drinks 1-2 drinks per weeks Past Drug Use History: None Reported
--- NOTE | 2023-08-29 22:07 | P.CONS ---
History of Present Illness - Reason for Consult Consult date: 08/29/23 - History of Present Illness Patient is a 67-year-old female with a past medical history significant for hypertension hyperlipidemia hypothyroidism reflux presenting to the hospital yesterday afternoon for evaluation of abdominal pain and hematemesis patient mention having a problem with abdominal pain for couple of weeks however seem to have increasing abdominal plain bloating and distention abdominal over the last day or 2 patient on presentation to the hospital was afebrile and no fever have recorded subsequently patient was not tachycardic or hypotensive mildly hypoxic currently on 3 L nasal oxygen did have white count of 12.9 with a left shift creatinine 0.34 liver isms mildly elevated blood cultures currently pending patient did have a abdominal pelvis CT small bowel obstruction likely within the proximal ileum and pneumoperitoneum patient has been admitted to hospital under surgical services PICC line has been placed patient has been started on Zosyn infectious disease was consulted today for further management of antibiotic therapy, concern for possible perforated gastric ulcer Past Medical History Past Medical History: GERD/Reflux, Hyperlipidemia, Hypertension, Thyroid Disorder Additional Past Medical History / Comment(s): 40lb wt loss over the last year,poor appetite because stomach feels bloating after dinner, able to eat lunch,hx no longer needing to take b/p medications,Raynaud's History of Any Multi-Drug Resistant Organisms: None Reported Past Surgical History: Tubal Ligation Additional Past Surgical History / Comment(s): COLONOSCOPY Past Anesthesia/Blood Transfusion Reactions: No Reported Reaction Additional Past Anesthesia/Blood Transfusion Reaction / Comm: no hx blood transfusion Past Psychological History: No Psychological Hx Reported Smoking Status: Current every day smoker Past Alcohol Use History: Occasional Additional Past Alcohol Use History / Comment(s): SMOKES 1PPD SINCE AGE 18,drinks 1-2 drinks per weeks Past Drug Use History: None Reported - Past Family History Father Family Medical History: Cancer Mother Family Medical History: Cancer Medications and Allergies Home Medications Medication Instructions Recorded Confirmed Type Temazepam [Restoril] 15 mg PO HS 09/10/22 08/28/23 History Lansoprazole [Prevacid] 30 mg PO DAILY 03/02/23 08/28/23 History Ibuprofen [Advil] 200 mg PO HS 06/14/23 08/28/23 History Allergies Allergy/AdvReac Type Severity Reaction Status Date / Time clindamycin AdvReac joint pain Verified 08/28/23 12:18 Physical Exam Vitals: Vital Signs Temp Pulse Pulse Resp BP BP Pulse Ox 08/29/23 07:02 79 18 105/66 95 08/29/23 02:00 97.7 F 87 20 102/66 91 L 08/28/23 20:00 18 120/76 94 L 08/28/23 18:08 97.8 F 107/69 08/28/23 17:40 98.0 F 111 H 20 106/69 92 L 08/28/23 14:38 105 H 18 115/67 93 L Intake and Output 08/28/23 08/29/23 08/29/23 22:59 06:59 14:59 Other: Voiding Method Toilet # Voids 2 Weight 41.73 kg Results CBC & Chem 7: 08/30/23 07:08 08/31/23 06:26 Labs: Abnormal Lab Results - Last 24 Hours (Table) 08/28/23 08/28/23 08/29/23 Range/Units 12:01 12:01 04:34 WBC 12.9 H (3.8-10.6) k/uL RBC 3.32 L (4.10-5.20) X 10*6/uL Hgb 10.3 L (12.0-15.0) g/dL Hct 32.1 L (37.2-46.3) % RDW 14.6 H (11.5-14.5) % Neutrophils # 10.9 H (1.3-7.7) k/uL Monocytes # 0.17 L (0.20-1.00) X 10*3/uL PT (9.9-11.9) sec INR (0.93-1.11) sec Potassium 3.4 L (3.5-5.1) mmol/L BUN 18 H (7-17) mg/dL Creatinine 0.34 L (0.52-1.04) mg/dL Glucose 109 H (74-99) mg/dL Calcium (8.7-10.3) mg/dL AST 52 H (14-36) U/L ALT 51 H (4-34) U/L Total Protein 6.2 L (6.3-8.2) g/dL Albumin (3.8-4.9) g/dL Globulin (1.6-3.3) g/dL 08/29/23 08/29/23 Range/Units 04:34 04:34 WBC (3.8-10.6) k/uL RBC (4.10-5.20) X 10*6/uL Hgb (12.0-15.0) g/dL Hct (37.2-46.3) % RDW (11.5-14.5) % Neutrophils # (1.3-7.7) k/uL Monocytes # (0.20-1.00) X 10*3/uL PT 12.7 H (9.9-11.9) sec INR 1.19 H (0.93-1.11) sec Potassium 3.1 L (3.5-5.1) mmol/L BUN (7-17) mg/dL Creatinine (0.52-1.04) mg/dL Glucose (74-99) mg/dL Calcium 7.5 L (8.7-10.3) mg/dL AST (14-36) U/L ALT (4-34) U/L Total Protein 4.5 L (6.3-8.2) g/dL Albumin 3.1 L (3.8-4.9) g/dL Globulin 1.4 L (1.6-3.3) g/dL Assessment and Plan Plan: 1patient presented hospital abdominal pain bloating and this patient has been diagnosed with the pneumoperitoneum on the CT did not mention specifically site of perforation surgical note documented possible have a perforated gastric ulcer likely on resuming colon with the enteric gram-negative both aerobes and anaerobes as well as yeast. 2blood culture has been obtained results will follow check inflammatory markers 3-continue with the Zosyn and will add Diflucan Multiple question concern answered We will follow on clinical condition and cultures to further adjust medication if needed Thank you for this consultation we will follow the patient along with you Dictation was produced using [employer] software. please excuse any grammatical, word or spelling errors. Time with Patient: Greater than 30
[2023-08-30] MEDS: FLUCONAZOLE IN NACL,ISO-OSM 200 MG in SALINE 1 100ML.BAG IVPB SCH (00:36)
[2023-08-30 07:43] LABS: Magnesium 1.7 mg/dL (1.6-2.3); Phosphorus 2.6 mg/dL (2.5-4.5)
[2023-08-30 08:25] LABS: African American GFR (CKD) >90 (>60 ml/min/1.73 sqM); Anion Gap 4 mmol/L; Blood Urea Nitrogen 6 mg/dL (7-17); Calcium 7.9 mg/dL (8.4-10.2); Carbon Dioxide 26 mmol/L (22-30); Chloride 109 mmol/L (98-107); Glucose 113 mg/dL (74-99); Non-African American GFR(CKD) >90 (>60 ml/min/1.73 sqM); Potassium 3.1 mmol/L (3.5-5.1); Sodium 139 mmol/L (137-145)
[2023-08-30 10:17] LABS: HCT 35.6 % (37.2-46.3); HGB 11.7 g/dL (12.0-15.0); MCH 31.4 pg (27.0-32.0); MCHC 32.9 g/dL (32.0-37.0); MCV 95.4 FL (80.0-97.0); Mean Platelet Volume 10.3 FL (9.5-12.2); NRBC Per 100 WBC 0 X 10*3/uL (0.00-0.01); Platelet Count 252 X 10*3/uL (140-440); RBC 3.73 X 10*6/uL (4.10-5.20); RDW 14.3 % (11.5-14.5); WBC 7.92 X 10*3/uL (4.50-10.00)
[2023-08-30 10:18] LABS: Basophils # (A) 0.02 X 10*3/uL (0.00-0.10); Basophils % (A) 0.3 %; Eosinophils # (A) 0.05 X 10*3/uL (0.04-0.35); Eosinophils % (A) 0.6 %; Lymphocytes # (A) 1.31 X 10*3/uL (0.90-5.00); Lymphocytes % (A) 16.5 %; Monocytes # (A) 0.34 X 10*3/uL (0.20-1.00); Monocytes % (A) 4.3 %; Neutrophils # (A) 6.18 X 10*3/uL (1.80-7.70)
[2023-08-30] MEDS: POTASSIUM CHLORIDE 20 MEQ in WATER FOR INJECTION 1 100ML.BAG IVPB SCH (10:54)
[2023-08-30] MEDS: CALCIUM GLUCONATE IN NACL 1 GM in SALINE 1 100ML.BAG IVPB ONE (10:54)
[2023-08-30] MEDS ORDERED: MVI, ADULT NO.4 WITH VIT K 10 ML, TRACE (CONC-1ML/DOSE) 1 ML in AMINO ACID 5%-D20W+LYTE... IV SCH (14:00)
--- NOTE | 2023-08-30 15:25 | P.PN ---
Progress Note - Text Progress Note Date: 08/30/23 Chief Complaint Vomiting blood - History of Present Illness This is a pleasant 67-year-old patient, follows Dr. Villalobos. Chronic stable medical condition include GERD, hypertension, hyperlipidemia, hypothyroid. Patient is accompanied by her 2 daughters and son-in-law in the ER. Patient is seen in the hallway bed 18. Patient had an extensive workup, done both by Dr. Maddox and Dr. Ro Swift for abdominal pain. Patient also had been losing weight. Patient recently lost her . Has been eating better. Actually put on some weight. May 2023 she underwent a diagnostic laparoscopy by Dr. Maddox. It was unremarkable. This was done for small bowel obstruction. March 2023 patient underwent MR enterography-limited exam due to distended bowel loops motion and patient anatomy. Multiple dilators loops of small bowel was seen. There is some concern about fistula on the study. Pulmonary fibrotic changes. February [address] Ro Swift was found to have scattered sigmoid diverticulosis some broad based polyps were removed and normal-appearing terminal ileum. Biopsy:-Unremarkable. August 2022:-Linear erosions ulcerations in the distal esophagus consistent with LA grade C reflux esophagitis. This was done for severe epigastric pain and heartburn. Mild antral gastritis was noted. Patient yesterday started off with vomiting. Dark consistency some burgundy colored vomiting. Significant abdominal pain. Distention. Patient states her bowels have been totally erratic for some time. CT scan of the abdomen: Multiple fluid-filled and dilated small bowel loops throughout the abdomen. Fecal debris in the colon. Free air under the right diaphragm. August 2: Abdominal pain better. Feels slightly better. Family at the bedside. Per surgery patient strictly NPO. Nicotine patch was discontinued as it was felt it might interfere with healing per surgery. Spoke to the family to bring in cinnamon sticks. For insomnia instead of p.o. Restoril will give Valium 2.5 mg nightly IV. August 3: Abdominal pain much better. Had 2 small bowel movements. Diet: Ice chips popsicles. Did sit up in the chair. Discussed with patient and daughter. Getting TPN. Has a PICC line in the left upper extremity. Remains on Zosyn. Diflucan added by ID. Clinical diagnosis about perforation in the gastric vicinity. Not definitive. Active Medications Albuterol/Ipratropium (Ipratropium-Albuterol 3 Ml Neb) 3 ml INHALATION RT-QID [facility] Last Admin: 08/30/23 14:48 Dose: Not Given Budesonide (Budesonide 1 Mg/2 Ml Nebu) 1 mg INHALATION RT-BID [facility] Last Admin: 08/30/23 09:37 Dose: Not Given Diazepam (Diazepam 5 Mg/Ml 2 Ml Inj) 2.5 mg IVP HS [facility] Last Admin: 08/29/23 21:35 Dose: 2.5 mg Heparin Sodium (Porcine) (Heparin Sodium,Porcine 5,000 Unit/Ml 1 Ml Vial) 5,000 unit SQ Q12HR [facility] Last Admin: 08/30/23 09:23 Dose: 5,000 unit Piperacillin Sod/Tazobactam (Sod 3.375 gm/ Sodium Chloride) 100 mls @ 25 mls/hr IVPB Q8HR [facility]; Protocol Last Admin: 08/30/23 09:23 Dose: 25 mls/hr Sodium Chloride (Saline 0.9%) 1,000 mls @ 75 mls/hr IV .[id number] [facility] Last Admin: 08/30/23 00:38 Dose: Not Given Fat Emulsion Intravenous (Lipids 20%) 250 mls @ 20.833 mls/hr IV MoFr [facility] Stop: 08/31/23 12:00 Fluconazole/Sodium Chloride (200 mg/ IV Solution) 100 mls @ 100 mls/hr IVPB DAILY@2300 [facility]; Protocol Last Admin: 08/30/23 00:36 Dose: 100 mls/hr Parenteral Vitamin Supplement 10 ml/ Zinc/Copper/Manganese/Selenium 1 ml/ Potassium Acetate 14 meq/ Amino Ac/Electrol/Dextrose/Calcium 1,018 mls @ 60 mls/hr IV .[id number] [facility] Fat Emulsion Intravenous (Lipids 20%) 250 mls @ 20.833 mls/hr IV MoWeFr@0900 [facility] Morphine Sulfate (Morphine Sulfate 2 Mg/Ml Syringe) 2 mg IV Q4HR PRN PRN Reason: Severe Pain (Scale 7 to 10) Last Admin: 08/30/23 09:22 Dose: 2 mg Naloxone HCl (Naloxone 0.4 Mg/Ml 1 Ml Vial) 0.2 mg IV Q2M PRN PRN Reason: Opioid Reversal Ondansetron HCl (Ondansetron 4 Mg/2 Ml Vial) 4 mg IVP Q6HR PRN PRN Reason: Nausea Pantoprazole Sodium (Pantoprazole 40 Mg/10 Ml Vial) 40 mg IV BID [facility] Last Admin: 08/30/23 09:23 Dose: 40 mg Social history: 3 weeks ago her . Lives alone. Smokes a pack a day about 50 years. 3- 4 glasses of wine per week Physical examination: VITAL SIGNS: 97.9, 85, 17, 146/93, 94% room air GENERAL: Laying in bed, more comfortable EYES: Pupils equal. Conjunctiva kathleen l. HEENT: External appearance of nose and ears normal, oral cavity grossly normal. NECK: JVD not raised; masses not palpable. HEART: First and second heart sounds are normal; no edema. LUNGS: Respiratory rate increased, basal fine crackles. ABDOMEN: Soft, minimal epigastric tenderness, no guarding rigidity, liver spleen not palpable, no masses palpable. PSYCH: Alert and oriented x3; mood and affect tired MUSCULOSKELETAL:No Clubbing/cyanosis;muscles-grossly intact. Loss of muscle mass subcutaneous fat. Prominent bones. OA. INVESTIGATIONS, reviewed in the clinical context: August 29: White count 7.9 hemoglobin 11.7 platelets 252 potassium 3.1 creatinine 0.36 2D echocardiogram: EF 55 to 60%. Severe right ventricle dilatation. Moderate to severe pulmonary hypertension. Tricuspid valve prolapse with moderate tricuspid regurgitation. August 28: White count 4.9 hemoglobin 10.3 platelets 226 sodium 142 potassium 3.1 creatinine 0.8 albumin 3.1 August 28, 2023: White count 12.9 hemoglobin 13.1 platelets 288 sodium 142 potassium 3.4 BUN 18 creatinine 0.34 EKG tracing personally reviewed by me-poor R wave progression. Sinus tachycardia CT scan of the abdomen: Showed multiple fluid-filled and dilated small bowel loops throughout the abdomen. Fecal debris in the colon. Free air under the right diaphragm. Assessment plan: -Probable viscus perforation. [Dark-colored vomitus with some red vomitus . Severe epigastric pain. Patient's EGD last year did show esophageal erosions. Patient also taking naproxen. Is a smoker. Possibility of distal gastric/duodenal ulcer. Has free under the right diaphragm.]: Clinically improving slowly NPO. IV fluids. Dr. Fontana following IV Zosyn IV / Diflucan -Pulmonary fibrosis, on clinical examination. Also prior CT scan as alluded to same. Will avoid systemic steroids. Nebulized Pulmicort 1 mg twice daily -COPD and a current smoker DuoNeb 4 times daily. 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 TPN on board. Discussed at length with patient daughter at the bedside. IV Zosyn and IV Diflucan Past Medical History Past Medical History: GERD/Reflux, Hyperlipidemia, Hypertension, Thyroid Disorder Additional Past Medical History / Comment(s): 40lb wt loss over the last year,poor appetite because stomach feels bloating after dinner, able to eat lunch,hx no longer needing to take b/p medications,Raynaud's History of Any Multi-Drug Resistant Organisms: None Reported Past Surgical History: Tubal Ligation Additional Past Surgical History / Comment(s): COLONOSCOPY Past Anesthesia/Blood Transfusion Reactions: No Reported Reaction Additional Past Anesthesia/Blood Transfusion Reaction / Comm: no hx blood transfusion Past Psychological History: No Psychological Hx Reported Smoking Status: Current every day smoker Past Alcohol Use History: Occasional Additional Past Alcohol Use History / Comment(s): SMOKES 1PPD SINCE AGE 18,drinks 1-2 drinks per weeks Past Drug Use History: None Reported
--- NOTE | 2023-08-30 16:26 | P.PN ---
Subjective Progress Note Date: 08/30/23 CHIEF COMPLAINT: Abdominal pain HISTORY OF PRESENT ILLNESS: The patient is a 67-year-old female who presents with acute on chronic abdominal pain ongoing for over 5 to 6 months. Patient recently had diagnostic laparoscopy done by Dr. Maddox 6 weeks ago. Patient admitted to the service for possible perforated gastric ulcer. She does report her pain is less today. She is having flatus and bowel movement. Denies any nausea or vomiting. Has PICC line in place and is started on TPN. Afebrile. WBC 7.92 Hgb 11.7 platelets 252 sodium is 139 potassium 3.1 creatinine 0.36 magnesium 1.7 PHYSICAL EXAM: VITAL SIGNS: Reviewed GENERAL: Well-developed in no acute distress. HEENT: No sclera icterus. Extraocular movements grossly intact. Moist buccal mucosa. Head is atraumatic, normocephalic. Hears conversational speech. No nasal drainage. NECK: Supple without lymphadenopathy. CHEST: Non-labored respirations and equal bilateral excursions. CARDIOVASCULAR: Palpable 2+ radial pulses. ABDOMEN: Soft. Mildly distended. Tenderness palpation epigastric area MUSCULOSKELETAL: No clubbing or cyanosis. NEUROLOGIC: No focal or lateralizing signs. Cranial nerves II through XII grossly intact. PSYCH: Appropriate affect. Alert and oriented to person, place and time. SKIN: Well perfused. Good skin turgor. ASSESSMENT: 1. Abdominal pain with pneumoperitoneum 2. Possible perforated gastric ulcer 3. Hypokalemia 4. Hypomagnesemia PLAN: -Keep patient n.p.o. except for ice chips and popsicles for 3 days due to possible perforated gastric ulcer -Continue TPN for nutrition support -Continue IV antibiotics. Infectious disease added Diflucan -Continue IV fluids -Nicotine patch discontinued and removed from patient's skin today. Recommend to avoid nicotine, it can exacerbate the gastric ulcer -Continue IV Protonix -Potassium and magnesium being replaced -Encourage patient to ambulate -DVT prophylaxis subcu heparin Physician Choral Director note has been reviewed by physician. Signing provider agrees with the documented findings, assessment, and plan of care. Objective - Vital Signs Vital signs: Vital Signs Temp 97.9 F 08/30/23 06:55 Pulse 74 08/30/23 07:40 Resp 20 08/30/23 07:40 BP 146/93 08/30/23 06:55 Pulse Ox 94 L 08/30/23 06:55 FiO2 Intake & Output 08/29/23 08/30/23 08/30/23 18:59 06:59 18:59 Weight 41.73 kg 41.73 kg Other: Voiding Method Toilet Toilet # Voids 2 3 3 - Labs CBC & Chem 7: 08/30/23 07:08 08/30/23 07:08 Labs: Abnormal Lab Results - Last 24 Hours (Table) 08/30/23 08/30/23 Range/Units 07:08 07:08 RBC 3.73 L (4.10-5.20) X 10*6/uL Hgb 11.7 L (12.0-15.0) g/dL Hct 35.6 L (37.2-46.3) % Potassium 3.1 L (3.5-5.1) mmol/L Chloride 109 H (98-107) mmol/L BUN 6 L (7-17) mg/dL Creatinine 0.36 L (0.52-1.04) mg/dL Glucose 113 H (74-99) mg/dL Calcium 7.9 L (8.4-10.2) mg/dL Microbiology - Last 24 Hours (Table) 08/28/23 14:17 Blood Culture - Preliminary Blood 08/28/23 14:07 Blood Culture - Preliminary Blood
[2023-08-30] MEDS: MAGNESIUM SULFATE-D5W PMX 1 GM in DEXTROSE/WATER 1 100ML.BAG IVPB SCH (16:53)
[2023-08-30] MEDS: FAT EMULSION 20% 250 ML IV SCH (20:59)
[2023-08-30] MEDS: [UNRECOGNIZED DRUG - REMARK] IV SCH (21:00)
[2023-08-31 08:02] LABS: African American GFR (CKD) >90 (>60 ml/min/1.73 sqM); Anion Gap 11 mmol/L; Blood Urea Nitrogen 6 mg/dL (7-17); Calcium 8.2 mg/dL (8.4-10.2); Carbon Dioxide 18 mmol/L (22-30); Chloride 106 mmol/L (98-107); Glucose 83 mg/dL (74-99); Non-African American GFR(CKD) >90 (>60 ml/min/1.73 sqM); Phosphorus 3.1 mg/dL (2.5-4.5); Sodium 135 mmol/L (137-145)
[2023-08-31 08:14] LABS: Magnesium 1.9 mg/dL (1.6-2.3); Potassium 3.5 mmol/L (3.5-5.1)
--- NOTE | 2023-08-31 12:02 | P.PN ---
Subjective Progress Note Date: 08/31/23 AMANDA. Patient states that her abdominal pain has improved compared to prior. No N/V. No SOB or CP. Admits to flatus but no BM. Ambulatory in room per nursing staff. Objective - Vital Signs Vital signs: Vital Signs Temp 96.4 F L 08/31/23 07:30 Pulse 76 08/31/23 07:30 Resp 18 08/31/23 07:30 BP 129/78 08/31/23 07:30 Pulse Ox 98 08/31/23 07:30 FiO2 Intake & Output 08/30/23 08/31/23 08/31/23 18:59 06:59 18:59 Intake Total 1850 Balance 1850 Weight 41.73 kg Intake: Intake, IV Titration 1650 Amount Calcium Gluconate in NaCl 100 1 gm In Saline 1 100ml. bag @ 100 mls/hr IVPB ONCE ONE Rx#:[id number] Magnesium Sulfate-D5w Pmx 200 1 gm In Dextrose/Water 1 100ml.bag @ 100 mls/hr IVPB Q1H [facility] Rx#: [id number] Mvi, Adult No.4 with Vit 700 K 10 ml Trace (Conc-1Ml/ Dose) 1 ml Potassium Acetate 14 meq In Amino Acid 5%-D20w+Lytes*E* 1, 000 ml @ 60 mls/hr IV . [id number] [facility] Rx#:[id number] Piperacillin-Tazobactam 3 100 .375 gm In Sodium Chloride 0.9% 100 ml @ 25 mls/hr IVPB Q8HR [facility] Rx# :[id number] Potassium Chloride 20 meq 200 In Water For Injection 1 100ml.bag @ 50 mls/hr IVPB Q2H [facility] Rx#: [id number] Sodium Chloride 0.9% 1, 350 000 ml @ 75 mls/hr IV . [id number] [facility] Rx#:[id number] Oral 200 Other: Voiding Method Toilet Toilet # Voids 3 2 - Exam Gen: AxO, NAD Pulm: non-labored respirations Abd: soft, mildly tender in epigastrium, mildly distended. No guarding/rebound/rigidity Extrem: no edema seen - Labs CBC & Chem 7: 08/30/23 07:08 08/31/23 06:26 Labs: Abnormal Lab Results - Last 24 Hours (Table) 08/31/23 Range/Units 06:26 Sodium 135 L (137-145) mmol/L Carbon Dioxide 18 L (22-30) mmol/L BUN 6 L (7-17) mg/dL Creatinine 0.31 L (0.52-1.04) mg/dL Calcium 8.2 L (8.4-10.2) mg/dL Microbiology - Last 24 Hours (Table) 08/28/23 14:17 Blood Culture - Preliminary Blood 08/28/23 14:07 Blood Culture - Preliminary Blood Assessment and Plan Assessment: Patient is a 67 year old female who presents with abdominal pain and CT evidence concerning for pneumoperitoneum potentially secondary to perforated gastric ulcer Plan: -NPO -IVF Hydration -IV abx -PRN pain and nausea control -DVT/GI PPx -No acute surgical intervention patient appears to be improving with conservative therapy alone John Brenner MD General Surgery
--- NOTE | 2023-08-31 12:36 | P.PN ---
Subjective Progress Note Date: 08/30/23 Principal diagnosis: Reason for follow-up is peritonitis and perforated bowel Patient is a 67-year-old female with a past medical history significant for hypertension hyperlipidemia hypothyroidism reflux presenting to the hospital for evaluation of abdominal pain and hematemesis, patient did have a CT with evidence of pneumoperitoneum and small bowel obstruction. ID consulted for management of antibiotic. On today's visit that 08/30/2023, patient has been afebrile, patient is breathing comfortably and is currently on room air, patient denies having any significant cough no chest pain shortness of breath, patient denies nausea vomiting still complaining of abdominal pain especially tender to touch did have some bowel movement. Patient white count is 7.9, creatinine 0.36 Objective - Vital Signs Vital signs: Vital Signs Temp 97.9 F 08/30/23 06:55 Pulse 74 08/30/23 07:40 Resp 20 08/30/23 07:40 BP 146/93 08/30/23 06:55 Pulse Ox 94 L 08/30/23 06:55 FiO2 Intake & Output 08/29/23 08/30/23 08/30/23 18:59 06:59 18:59 Weight 41.73 kg 41.73 kg Other: Voiding Method Toilet Toilet # Voids 2 3 3 - Exam GENERAL DESCRIPTION: An elderly female lying in bed in no distress RESPIRATORY SYSTEM: Unlabored breathing , decreased breath sounds at bases HEART: S1 S2 regular rate and rhythm , ABDOMEN: Soft , mild tenderness EXTREMITIES: No edema feet - Labs CBC & Chem 7: 08/30/23 07:08 08/31/23 06:26 Labs: Abnormal Lab Results - Last 24 Hours (Table) 08/30/23 08/30/23 Range/Units 07:08 07:08 RBC 3.73 L (4.10-5.20) X 10*6/uL Hgb 11.7 L (12.0-15.0) g/dL Hct 35.6 L (37.2-46.3) % Potassium 3.1 L (3.5-5.1) mmol/L Chloride 109 H (98-107) mmol/L BUN 6 L (7-17) mg/dL Creatinine 0.36 L (0.52-1.04) mg/dL Glucose 113 H (74-99) mg/dL Calcium 7.9 L (8.4-10.2) mg/dL Microbiology - Last 24 Hours (Table) 08/28/23 14:17 Blood Culture - Preliminary Blood 08/28/23 14:07 Blood Culture - Preliminary Blood Assessment and Plan (1) Peritonitis Current Visit: Yes Status: Acute Code(s): K65.9 - PERITONITIS, UNSPECIFIED SNOMED Code(s): 59214749 (2) Pneumoperitoneum Current Visit: Yes Status: Acute Code(s): K66.8 - OTHER SPECIFIED DISORDERS OF PERITONEUM SNOMED Code(s): 28443023 Plan: 1patient presented hospital abdominal pain bloating and this patient has been diagnosed with the pneumoperitoneum on the CT did not mention specifically site of perforation surgical note documented possible have a perforated gastric ulcer likely on resuming colon with the enteric gram-negative both aerobes and anaerobes as well as yeast. 2blood culture has been currently pending 3-patient is covered with Zosyn and Diflucan, monitor clinical course closely Dictation was produced using [employer] dictation software. please excuse any grammatical, word or spelling errors. Time with Patient: Less than 30
--- NOTE | 2023-08-31 12:39 | P.PN ---
Subjective Progress Note Date: 08/31/23 Principal diagnosis: Reason for follow-up is peritonitis and perforated bowel Patient is a 67-year-old female with a past medical history significant for hypertension hyperlipidemia hypothyroidism reflux presenting to the hospital for evaluation of abdominal pain and hematemesis, patient did have a CT with evidence of pneumoperitoneum and small bowel obstruction. ID consulted for management of antibiotic. On today's visit that 08/31/2023,the patient denies any fever or any chills, patient is breathing comfortably on room air, the patient denies chest pain shortness of breath and no significant cough, patient abdominal pain slightly decreased in intensity no nausea no vomiting did have a few loose stools Patient did have a creatinine 0.31 blood culture has been negative so far Objective - Vital Signs Vital signs: Vital Signs Temp 96.4 F L 08/31/23 07:30 Pulse 76 08/31/23 07:30 Resp 18 08/31/23 07:30 BP 129/78 08/31/23 07:30 Pulse Ox 98 08/31/23 07:30 FiO2 Intake & Output 08/30/23 08/31/23 08/31/23 18:59 06:59 18:59 Intake Total 1850 Balance 1850 Weight 41.73 kg Intake: Intake, IV Titration 1650 Amount Calcium Gluconate in NaCl 100 1 gm In Saline 1 100ml. bag @ 100 mls/hr IVPB ONCE ONE Rx#:[id number] Magnesium Sulfate-D5w Pmx 200 1 gm In Dextrose/Water 1 100ml.bag @ 100 mls/hr IVPB Q1H [facility] Rx#: [id number] Mvi, Adult No.4 with Vit 700 K 10 ml Trace (Conc-1Ml/ Dose) 1 ml Potassium Acetate 14 meq In Amino Acid 5%-D20w+Lytes*E* 1, 000 ml @ 60 mls/hr IV . [id number] [facility] Rx#:[id number] Piperacillin-Tazobactam 3 100 .375 gm In Sodium Chloride 0.9% 100 ml @ 25 mls/hr IVPB Q8HR [facility] Rx# :[id number] Potassium Chloride 20 meq 200 In Water For Injection 1 100ml.bag @ 50 mls/hr IVPB Q2H [facility] Rx#: [id number] Sodium Chloride 0.9% 1, 350 000 ml @ 75 mls/hr IV . [id number] [facility] Rx#:[id number] Oral 200 Other: Voiding Method Toilet Toilet # Voids 3 2 - Exam GENERAL DESCRIPTION: An elderly female lying in bed in no distress RESPIRATORY SYSTEM: Unlabored breathing , decreased breath sounds at bases HEART: S1 S2 regular rate and rhythm , ABDOMEN: Soft , mild tenderness EXTREMITIES: No edema feet - Labs CBC & Chem 7: 08/30/23 07:08 08/31/23 06:26 Labs: Abnormal Lab Results - Last 24 Hours (Table) 08/31/23 Range/Units 06:26 Sodium 135 L (137-145) mmol/L Carbon Dioxide 18 L (22-30) mmol/L BUN 6 L (7-17) mg/dL Creatinine 0.31 L (0.52-1.04) mg/dL Calcium 8.2 L (8.4-10.2) mg/dL Microbiology - Last 24 Hours (Table) 08/28/23 14:17 Blood Culture - Preliminary Blood 08/28/23 14:07 Blood Culture - Preliminary Blood Assessment and Plan (1) Peritonitis Current Visit: Yes Status: Acute Code(s): K65.9 - PERITONITIS, UNSPECIFIED SNOMED Code(s): 98729394 (2) Pneumoperitoneum Current Visit: Yes Status: Acute Code(s): K66.8 - OTHER SPECIFIED DISORDERS OF PERITONEUM SNOMED Code(s): 60902771 Plan: 1patient presented hospital abdominal pain bloating and this patient has been diagnosed with the pneumoperitoneum on the CT did not mention specifically site of perforation surgical note documented possible have a perforated gastric ulcer likely on resuming colon with the enteric gram-negative both aerobes and an aerobes as well as yeast. 2blood culture has been currently pending 3-patient is afebrile improvement in her abdominal pain, we will continue with Zosyn and Diflucan, monitor clinical course closely Question Answered Dictation was produced using [employer] software. please excuse any grammatical, word or spelling errors. Time with Patient: Less than 30
[2023-08-31] MEDS: POTASSIUM CHLORIDE 20 MEQ in WATER FOR INJECTION 1 100ML.BAG IVPB SCH (13:38)
--- NOTE | 2023-08-31 13:48 | P.PN ---
Subjective Progress Note Date: 08/31/23 This is a pleasant 67-year-old patient, follows Dr. Villalobos. Chronic stable medical condition include GERD, hypertension, hyperlipidemia, hypothyroid. Patient is accompanied by her 2 daughters and son-in-law in the ER. Patient is seen in the hallway bed 18. Patient had an extensive workup, done both by Dr. Maddox and Dr. Ro Swift for abdominal pain. Patient also had been losing weight. Patient recently lost her . Has been eating better. Actually put on some weight. May 2023 she underwent a diagnostic laparoscopy by Dr. Maddox. It was unremarkable. This was done for small bowel obstruction. March 2023 patient underwent MR enterography-limited exam due to distended b owel loops motion and patient anatomy. Multiple dilators loops of small bowel was seen. There is some concern about fistula on the study. Pulmonary fibrotic changes. February [address] Ro Swift was found to have scattered sigmoid diverticulosis some broad based polyps were removed and normal-appearing terminal ileum. Biopsy:-Unremarkable. August 2022:-Linear erosions ulcerations in the distal esophagus consistent with LA grade C reflux esophagitis. This was done for severe epigastric pain and heartburn. Mild antral gastritis was noted. Patient yesterday started off with vomiting. Dark consistency some burgundy colored vomiting. Significant abdominal pain. Distention. Patient states her bowels have been totally erratic for some time. CT scan of the abdomen: Multiple fluid-filled and dilated small bowel loops throughout the abdomen. Fecal debris in the colon. Free air under the right diaphragm. August 2: Abdominal pain better. Feels slightly better. Family at the bedside. Per surgery patient strictly NPO. Nicotine patch was discontinued as it was fe lt it might interfere with healing per surgery. Spoke to the family to bring in cinnamon sticks. For insomnia instead of p.o. Restoril will give Valium 2.5 mg nightly IV. August 3: Abdominal pain much better. Had 2 small bowel movements. Diet: Ice chips popsicles. Did sit up in the chair. Discussed with patient and daughter. Getting TPN. Has a PICC line in the left upper extremity. Remains on Zosyn. Diflucan added by ID. Clinical diagnosis about perforation in the gastric vicinity. Not definitive. 08/30. Dr. Swanson took over care. Patient seen and examined. Blood work done this morning showed sodium 139, potassium 3.5, BUN 6, creatinine 0.31, currently on TPN. Patient is passing gas, having bowel movements. REVIEW OF SYSTEMS: CONSTITUTIONAL: No fever, no malaise,. CARDIOVASCULAR: No chest pain, no palpitations, no syncope. PULMONARY: No shortness of breath, no cough, GASTROINTESTINAL: No diarrhea, no nausea, no vomiting, no abdominal pain. NEUROLOGICAL: No headaches, no weakness, PHYSICAL EXAMINATION: GENERAL: The patient is alert and oriented x3, not in any acute distress. Well developed, well nourished. HEENT: Pupils are round and equally reacting to light. EOMI. No scleral icterus. No conjunctival pallor. Normocephalic, atraumatic. No pharyngeal erythema. No thyromegaly. CARDIOVASCULAR: S1 and S2 present. No murmurs, rubs, or gallops. PULMONARY: Chest is clear to auscultation, no wheezing or crackles. ABDOMEN: Soft, nontender, nondistended, normoactive bowel sounds. No palpable organomegaly. MUSCULOSKELETAL: No joint swelling or deformity. EXTREMITIES: No cyanosis, clubbing, or pedal edema. NEUROLOGICAL: Gross neurological examination did not reveal any focal deficits. SKIN: No rashes. Assessment and plan Abdominal pain with pneumoperitoneum Possible perforated gastric ulcer Severe epigastric pain. Patient's EGD last year did show esophageal erosions. Monitor vital sign Monitor CBC Monitor CMP Continue antiemetics Continue IV fluid Continue n.p.o. IV Zosyn IV / Diflucan Surgery following ID following -Pulmonary fibrosis, on clinical examination. Also prior CT scan as alluded to same. Continue breathing treatment -COPD and a current smoker DuoNeb 4 times daily. 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 Continue same treatment. Continue with symptomatic treatment. Resume home medication. Monitor labs and vitals. DVT and GI prophylaxis. Further recommendations as per clinical course of the patient Dictation was produced using [employer] dictation software. please excuse any grammatical, word or spelling errors. Objective - Vital Signs Vital signs: Vital Signs Temp 96.4 F L 08/31/23 07:30 Pulse 76 08/31/23 07:30 Resp 18 08/31/23 07:30 BP 129/78 08/31/23 07:30 Pulse Ox 98 08/31/23 07:30 FiO2 Intake & Output 08/30/23 08/31/23 08/31/23 18:59 06:59 18:59 Intake Total 1850 Balance 1850 Weight 41.73 kg Intake: Intake, IV Titration 1650 Amount Calcium Gluconate in NaCl 100 1 gm In Saline 1 100ml. bag @ 100 mls/hr IVPB ONCE ONE Rx#:[id number] Magnesium Sulfate-D5w Pmx 200 1 gm In Dextrose/Water 1 100ml.bag @ 100 mls/hr IVPB Q1H [facility] Rx#: [id number] Mvi, Adult No.4 with Vit 700 K 10 ml Trace (Conc-1Ml/ Dose) 1 ml Potassium Acetate 14 meq In Amino Acid 5%-D20w+Lytes*E* 1, 000 ml @ 60 mls/hr IV . [id number] [facility] Rx#:[id number] Piperacillin-Tazobactam 3 100 .375 gm In Sodium Chloride 0.9% 100 ml @ 25 mls/hr IVPB Q8HR [facility] Rx# :[id number] Potassium Chloride 20 meq 200 In Water For Injection 1 100ml.bag @ 50 mls/hr IVPB Q2H [facility] Rx#: [id number] Sodium Chloride 0.9% 1, 350 000 ml @ 75 mls/hr IV . [id number] [facility] Rx#:[id number] Oral 200 Other: Voiding Method Toilet Toilet # Voids 3 2 - Labs CBC & Chem 7: 08/30/23 07:08 08/31/23 06:26 Labs: Abnormal Lab Results - Last 24 Hours (Table) 08/30/23 08/31/23 Range/Units 07:08 06:26 RBC 3.73 L (4.10-5.20) X 10*6/uL Hgb 11.7 L (12.0-15.0) g/dL Hct 35.6 L (37.2-46.3) % Sodium 135 L (137-145) mmol/L Carbon Dioxide 18 L (22-30) mmol/L BUN 6 L (7-17) mg/dL Creatinine 0.31 L (0.52-1.04) mg/dL Calcium 8.2 L (8.4-10.2) mg/dL Microbiology - Last 24 Hours (Table) 08/28/23 14:17 Blood Culture - Preliminary Blood 08/28/23 14:07 Blood Culture - Preliminary Blood
[2023-09-01 04:59] LABS: ALT 30 U/L (4-34); AST 29 U/L (14-36); African American GFR (CKD) >90 (>60 ml/min/1.73 sqM); Albumin 2.7 g/dL (3.5-5.0); Albumin/Globulin Ratio 1.3; Alkaline Phosphatase 59 U/L (38-126); Anion Gap 3 mmol/L; Blood Urea Nitrogen 8 mg/dL (7-17); Calcium 8.1 mg/dL (8.4-10.2); Carbon Dioxide 28 mmol/L (22-30); Chloride 107 mmol/L (98-107); Globulin 2.1 g/dL; Glucose 105 mg/dL (74-99); Non-African American GFR(CKD) >90 (>60 ml/min/1.73 sqM); Phosphorus 3.4 mg/dL (2.5-4.5); Potassium 3.3 mmol/L (3.5-5.1); Sodium 138 mmol/L (137-145); Total Bilirubin 0.4 mg/dL (0.2-1.3); Total Protein 4.8 g/dL (6.3-8.2)
[2023-09-01] MEDS: POTASSIUM CHLORIDE 20 MEQ in WATER FOR INJECTION 1 100ML.BAG IVPB SCH (08:12)
[2023-09-01 09:24] LABS: HGB 10.2 g/dL (12.0-15.0); MCH 30.5 pg (27.0-32.0); MCHC 32.9 g/dL (32.0-37.0); MCV 92.8 FL (80.0-97.0); Mean Platelet Volume 10.2 FL (9.5-12.2); NRBC Per 100 WBC 0 X 10*3/uL (0.00-0.01); Platelet Count 230 X 10*3/uL (140-440); RBC 3.34 X 10*6/uL (4.10-5.20); RDW 14.6 % (11.5-14.5); WBC 5.29 X 10*3/uL (4.50-10.00)
--- NOTE | 2023-09-01 12:53 | P.PN ---
Subjective Progress Note Date: 09/01/23 This is a pleasant 67-year-old patient, follows Dr. Villalobos. Chronic stable medical condition include GERD, hypertension, hyperlipidemia, hypothyroid. Patient is accompanied by her 2 daughters and son-in-law in the ER. Patient is seen in the hallway bed 18. Patient had an extensive workup, done both by Dr. Maddox and Dr. Ro Swift for abdominal pain. Patient also had been losing weight. Patient recently lost her . Has been eating better. Actually put on some weight. May 2023 she underwent a diagnostic laparoscopy by Dr. Maddox. It was unremarkable. This was done for small bowel obstruction. March 2023 patient underwent MR enterography-limited exam due to distended b owel loops motion and patient anatomy. Multiple dilators loops of small bowel was seen. There is some concern about fistula on the study. Pulmonary fibrotic changes. February [address] Ro Swift was found to have scattered sigmoid diverticulosis some broad based polyps were removed and normal-appearing terminal ileum. Biopsy:-Unremarkable. August 2022:-Linear erosions ulcerations in the distal esophagus consistent with LA grade C reflux esophagitis. This was done for severe epigastric pain and heartburn. Mild antral gastritis was noted. Patient yesterday started off with vomiting. Dark consistency some burgundy colored vomiting. Significant abdominal pain. Distention. Patient states her bowels have been totally erratic for some time. CT scan of the abdomen: Multiple fluid-filled and dilated small bowel loops throughout the abdomen. Fecal debris in the colon. Free air under the right diaphragm. August 2: Abdominal pain better. Feels slightly better. Family at the bedside. Per surgery patient strictly NPO. Nicotine patch was discontinued as it was fe lt it might interfere with healing per surgery. Spoke to the family to bring in cinnamon sticks. For insomnia instead of p.o. Restoril will give Valium 2.5 mg nightly IV. August 3: Abdominal pain much better. Had 2 small bowel movements. Diet: Ice chips popsicles. Did sit up in the chair. Discussed with patient and daughter. Getting TPN. Has a PICC line in the left upper extremity. Remains on Zosyn. Diflucan added by ID. Clinical diagnosis about perforation in the gastric vicinity. Not definitive. 08/30. Dr. Swanson took over care. Patient seen and examined. Blood work done this morning showed sodium 139, potassium 3.5, BUN 6, creatinine 0.31, currently on TPN. Patient is passing gas, having bowel movements. 08/31. Patient seen and examined. Labs this morning sodium 132, potassium 3.3, BUN is 8, creatinine 0.36, phosphorus 3.4, magnesium 2, total bilirubin 0.4, AST 29, ALT 30, total protein 4.8. Potassium replacement ordered REVIEW OF SYSTEMS: CONSTITUTIONAL: No fever, no malaise,. CARDIOVASCULAR: No chest pain, no palpitations, no syncope. PULMONARY: No shortness of breath, no cough, GASTROINTESTINAL: No diarrhea, no nausea, no vomiting, no abdominal pain. NEUROLOGICAL: No headaches, no weakness, PHYSICAL EXAMINATION: GENERAL: The patient is alert and oriented x3, not in any acute distress. Well developed, well nourished. HEENT: Pupils are round and equally reacting to light. EOMI. No scleral icterus. No conjunctival pallor. Normocephalic, atraumatic. No pharyngeal erythema. No thyromegaly. CARDIOVASCULAR: S1 and S2 present. No murmurs, rubs, or gallops. PULMONARY: Chest is clear to auscultation, no wheezing or crackles. ABDOMEN: Soft, nontender, nondistended, normoactive bowel sounds. No palpable organomegaly. MUSCULOSKELETAL: No joint swelling or deformity. EXTREMITIES: No cyanosis, clubbing, or pedal edema. NEUROLOGICAL: Gross neurological examination did not reveal any focal deficits. SKIN: No rashes. Assessment and plan Abdominal pain with pneumoperitoneum Possible perforated gastric ulcer Severe epigastric pain. Patient's EGD last year did show esophageal erosions. Monitor vital sign Monitor CBC Monitor CMP Continue antiemetics Continue TPN Continue n.p.o. Continue IV Zosyn IV / Diflucan Surgery following ID following -Pulmonary fibrosis, on clinical examination. Also prior CT scan as alluded to same. Continue breathing treatment -COPD and a current smoker DuoNeb 4 times daily. 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 Continue same treatment. Continue with symptomatic treatment. Resume home medication. Monitor labs and vitals. DVT and GI prophylaxis. Further recommendations as per clinical course of the patient Dictation was produced using [employer] dictation software. please excuse any gra mmatical, word or spelling errors. Objective - Vital Signs Vital signs: Vital Signs Temp 97.5 F L 09/01/23 07:50 Pulse 83 09/01/23 07:50 Resp 18 09/01/23 07:50 BP 115/75 09/01/23 07:50 Pulse Ox 98 09/01/23 07:50 FiO2 Intake & Output 08/31/23 09/01/23 09/01/23 18:59 06:59 18:59 Intake Total 990 2097 Balance 990 2097 Intake: Intake, IV Titration 990 2097 Amount Fluconazole in NaCl,Iso- 100 Osm 200 mg In Saline 1 100ml.bag @ 100 mls/hr IVPB DAILY@2300 [facility] Rx#: [id number] Mvi, Adult No.4 with Vit 990 997 K 10 ml Trace (Conc-1Ml/ Dose) 1 ml Potassium Acetate 14 meq In Amino Acid 5%-D20w+Lytes*E* 1, 000 ml @ 60 mls/hr IV . [id number] [facility] Rx#:[id number] Piperacillin-Tazobactam 3 100 .375 gm In Sodium Chloride 0.9% 100 ml @ 25 mls/hr IVPB Q8HR [facility] Rx# :[id number] Sodium Chloride 0.9% 1, 900 000 ml @ 75 mls/hr IV . [id number] [facility] Rx#:[id number] Other: # Voids 2 # Bowel Movements 1 - Labs CBC & Chem 7: 09/01/23 04:11 09/01/23 04:11 Labs: Abnormal Lab Results - Last 24 Hours (Table) 09/01/23 Range/Units 04:11 Potassium 3.3 L (3.5-5.1) mmol/L Creatinine 0.36 L (0.52-1.04) mg/dL Glucose 105 H (74-99) mg/dL Calcium 8.1 L (8.4-10.2) mg/dL Total Protein 4.8 L (6.3-8.2) g/dL Albumin 2.7 L (3.5-5.0) g/dL Microbiology - Last 24 Hours (Table) 08/28/23 14:17 Blood Culture - Preliminary Blood 08/28/23 14:07 Blood Culture - Preliminary Blood
--- NOTE | 2023-09-01 17:48 | P.PN ---
Subjective Progress Note Date: 09/01/23 Patient reports resolved abdominal pain. She is day 4 of IV antibiotics and TPN and n.p.o. status. She is requesting more food. Abdomen: No peritonitis. Nontender. Labs: Plan: WBC normal. Plan: 1. Will obtain small bowel follow-through for pre-existing small bowel obstruction. 2. May start clear liquid diet. 3. Pending results of small bowel follow-through, will advance diet. Objective - Vital Signs Vital signs: Vital Signs Temp 97.9 F 09/01/23 14:05 Pulse 60 09/01/23 14:05 Resp 18 09/01/23 14:05 BP 134/84 09/01/23 14:05 Pulse Ox 91 L 09/01/23 14:05 FiO2 Intake & Output 08/31/23 09/01/23 09/01/23 18:59 06:59 18:59 Intake Total 990 2097 Balance 990 2097 Intake: Intake, IV Titration 990 2097 Amount Fluconazole in NaCl,Iso- 100 Osm 200 mg In Saline 1 100ml.bag @ 100 mls/hr IVPB DAILY@2300 [facility] Rx#: [id number] Mvi, Adult No.4 with Vit 990 997 K 10 ml Trace (Conc-1Ml/ Dose) 1 ml Potassium Acetate 14 meq In Amino Acid 5%-D20w+Lytes*E* 1, 000 ml @ 60 mls/hr IV . [id number] [facility] Rx#:[id number] Piperacillin-Tazobactam 3 100 .375 gm In Sodium Chloride 0.9% 100 ml @ 25 mls/hr IVPB Q8HR [facility] Rx# :[id number] Sodium Chloride 0.9% 1, 900 000 ml @ 75 mls/hr IV . [id number] [facility] Rx#:[id number] Other: # Voids 2 2 # Bowel Movements 1 - Labs CBC & Chem 7: 09/01/23 04:11 09/01/23 04:11 Labs: Abnormal Lab Results - Last 24 Hours (Table) 09/01/23 09/01/23 Range/Units 04:11 04:11 RBC 3.34 L (4.10-5.20) X 10*6/uL Hgb 10.2 L (12.0-15.0) g/dL Hct 31.0 L (37.2-46.3) % RDW 14.6 H (11.5-14.5) % Potassium 3.3 L (3.5-5.1) mmol/L Creatinine 0.36 L (0.52-1.04) mg/dL Glucose 105 H (74-99) mg/dL Calcium 8.1 L (8.4-10.2) mg/dL Total Protein 4.8 L (6.3-8.2) g/dL Albumin 2.7 L (3.5-5.0) g/dL Microbiology - Last 24 Hours (Table) 08/28/23 14:17 Blood Culture - Preliminary Blood 08/28/23 14:07 Blood Culture - Preliminary Blood
--- NOTE | 2023-09-01 18:39 | P.PN ---
Subjective Progress Note Date: 09/01/23 Principal diagnosis: Reason for follow-up is peritonitis and perforated bowel Patient is a 67-year-old female with a past medical history significant for hypertension hyperlipidemia hypothyroidism reflux presenting to the hospital for evaluation of abdominal pain and hematemesis, patient did have a CT with evidence of pneumoperitoneum and small bowel obstruction. ID consulted for management of antibiotic. On today's visit that 09/01/2023,the patient remains to be afebrile, patient is on room air not requiring supplemental oxygen and denies any shortness of breath no chest pain or cough.Patient denies having any nausea or vomiting, abdominal pain has decreased in intensity and did have multiple loose stools. Patient white count is 5.29, creatinine 0.36 Objective - Vital Signs Vital signs: Vital Signs Temp 97.9 F 09/01/23 14:05 Pulse 60 09/01/23 14:05 Resp 18 09/01/23 14:05 BP 134/84 09/01/23 14:05 Pulse Ox 91 L 09/01/23 14:05 FiO2 Intake & Output 08/31/23 09/01/23 09/01/23 18:59 06:59 18:59 Intake Total 990 2097 Balance 990 2097 Intake: Intake, IV Titration 990 2097 Amount Fluconazole in NaCl,Iso- 100 Osm 200 mg In Saline 1 100ml.bag @ 100 mls/hr IVPB DAILY@2300 [facility] Rx#: [id number] Mvi, Adult No.4 with Vit 990 997 K 10 ml Trace (Conc-1Ml/ Dose) 1 ml Potassium Acetate 14 meq In Amino Acid 5%-D20w+Lytes*E* 1, 000 ml @ 60 mls/hr IV . [id number] [facility] Rx#:[id number] Piperacillin-Tazobactam 3 100 .375 gm In Sodium Chloride 0.9% 100 ml @ 25 mls/hr IVPB Q8HR [facility] Rx# :[id number] Sodium Chloride 0.9% 1, 900 000 ml @ 75 mls/hr IV . [id number] [facility] Rx#:[id number] Other: # Voids 2 4 # Bowel Movements 1 - Exam GENERAL DESCRIPTION: An elderly female lying in bed in no distress RESPIRATORY SYSTEM: Unlabored breathing , decreased breath sounds at bases HEART: S1 S2 regular rate and rhythm , ABDOMEN: Soft , mild tenderness EXTREMITIES: No edema feet - Labs CBC & Chem 7: 09/01/23 04:11 09/01/23 04:11 Labs: Abnormal Lab Results - Last 24 Hours (Table) 09/01/23 09/01/23 Range/Units 04:11 04:11 RBC 3.34 L (4.10-5.20) X 10*6/uL Hgb 10.2 L (12.0-15.0) g/dL Hct 31.0 L (37.2-46.3) % RDW 14.6 H (11.5-14.5) % Potassium 3.3 L (3.5-5.1) mmol/L Creatinine 0.36 L (0.52-1.04) mg/dL Glucose 105 H (74-99) mg/dL Calcium 8.1 L (8.4-10.2) mg/dL Total Protein 4.8 L (6.3-8.2) g/dL Albumin 2.7 L (3.5-5.0) g/dL Microbiology - Last 24 Hours (Table) 08/28/23 14:17 Blood Culture - Preliminary Blood 08/28/23 14:07 Blood Culture - Preliminary Blood Assessment and Plan (1) Peritonitis Current Visit: Yes Status: Acute Code(s): K65.9 - PERITONITIS, UNSPECIFIED SNOMED Code(s): 80604101 (2) Pneumoperitoneum Current Visit: Yes Status: Acute Code(s): K66.8 - OTHER SPECIFIED DISORDERS OF PERITONEUM SNOMED Code(s): 25719313 Plan: 1patient presented hospital abdominal pain bloating and this patient has been diagnosed with the pneumoperitoneum on the CT did not mention specifically site of perforation surgical note documented possible have a perforated gastric ulcer likely on resuming colon with the enteric gram-negative both aerobes and anaerobes as well as yeast. 2blood culture has been currently pending 3-patient is afebrile improvement in her abdominal pain, patient is currently responding to the Zosyn and Diflucan continue antibiotic clinical course closely Dictation was produced using [employer] dictation software. please excuse any grammatical, word or spelling errors. Time with Patient: Less than 30
[2023-09-01] MEDS: MVI, ADULT NO.4 WITH VIT K 10 ML, TRACE (CONC-1ML/DOSE) 1 ML, SODIUM ACETATE 30 MEQ, PO... IV SCH (20:37)
[2023-09-02 05:24] LABS: African American GFR (CKD) >90 (>60 ml/min/1.73 sqM); Anion Gap 6 mmol/L; Blood Urea Nitrogen 7 mg/dL (7-17); Calcium 8.3 mg/dL (8.4-10.2); Carbon Dioxide 24 mmol/L (22-30); Chloride 109 mmol/L (98-107); Glucose 109 mg/dL (74-99); Magnesium 1.8 mg/dL (1.6-2.3); Non-African American GFR(CKD) >90 (>60 ml/min/1.73 sqM); Phosphorus 2.7 mg/dL (2.5-4.5); Potassium 3.4 mmol/L (3.5-5.1); Sodium 139 mmol/L (137-145)
[2023-09-02] MEDS: FAT EMULSION 20% 250 ML IV SCH (13:04)
[2023-09-02] MEDS: MAGNESIUM SULFATE-D5W PMX 1 GM in DEXTROSE/WATER 1 100ML.BAG IVPB ONE (13:37)
[2023-09-02] MEDS: POTASSIUM CHLORIDE 20 MEQ in WATER FOR INJECTION 1 100ML.BAG IVPB SCH (15:26)
--- NOTE | 2023-09-02 15:27 | FL ---
EXAMINATION TYPE: FL small bowel follow through DATE OF EXAM: 09/02/2023 CLINICAL HISTORY: Pain TECHNIQUE: A single contrast small bowel follow through is performed utilizing barium. COMPARISON: None FINDINGS: Development Assistant image of the abdomen shows a chronic interstitial lung disease at the lung bases. Th ere is chronic deformities of the posterior rib cage. Diffuse osteopenia and arthropathy of the hips. The small bowel study shows transit time was not achieved at 4 1/2 hours and there are dilated small bowel loops but no definite transition point. Maximal dimension of the bowel loop measures approximat taylor 4.9 cm.. There is a normal mucosal fold pattern throughout the small bowel. There is no evidenc e of any stricture or filling defect noted. The exam was terminated. A flat plate x-ray will be obtai elena for further evaluation. IMPRESSION: 1. Marked delay in transit time through the colon not seen at 4 1/2 hours. A delayed x-ray will follo w. No definite transition point differential diagnosis would obstruction versus severe ileus.
--- NOTE | 2023-09-02 16:29 | P.PN ---
Subjective Progress Note Date: 09/02/23 CHIEF COMPLAINT: Abdominal pain HISTORY OF PRESENT ILLNESS: Patient reports abdominal pain has resolved. She denies any nausea or vomiting. She is having flatus and bowel movements. She underwent small bowel follow-through today and results report marked delay in transit time through the colon. A delayed x-ray will follow. No definite transition point differential diagnosis would be obstruction versus severe ileus. Patient is asking if she can eat. Afebrile. Mild tachycardia improved. Potassium 3.4 and being replaced. Magnesium 1.8 PHYSICAL EXAM: VITAL SIGNS: Reviewed GENERAL: Well-developed in no acute distress. HEENT: No sclera icterus. Extraocular movements grossly intact. Moist buccal mucosa. Head is atraumatic, normocephalic. Hears conversational speech. No nasal drainage. NECK: Supple without lymphadenopathy. CHEST: Non-labored respirations and equal bilateral excursions. CARDIOVASCULAR: Palpable 2+ radial pulses. ABDOMEN: Soft. Nondistended. Nontender MUSCULOSKELETAL: No clubbing or cyanosis. NEUROLOGIC: No focal or lateralizing signs. Cranial nerves II through XII grossly intact. PSYCH: Appropriate affect. Alert and oriented to person, place and time. SKIN: Well perfused. Good skin turgor. ASSESSMENT: 1. Abdominal pain with pneumoperitoneum 2. Possible perforated gastric ulcer 3. Hypokalemia 4. Hypomagnesemia PLAN: -Follow-up on last abdominal x-ray result after small bowel follow-through. Diet advancement per surgeon -Continue TPN for now and keep patient n.p.o. -Dr. Miranda is recommending 10 days of Zosyn and Diflucan at discharge -Continue IV Protonix -Potassium and magnesium are being replaced -Encourage patient to ambulate -DVT prophylaxis subcu heparin Physician Plate Cleaner note has been reviewed by physician. Signing provider agrees with the documented findings, assessment, and plan of care. Objective - Vital Signs Vital signs: Vital Signs Temp 98.0 F 09/02/23 14:00 Pulse 62 09/02/23 14:00 Resp 17 09/02/23 14:00 BP 134/85 09/02/23 14:00 Pulse Ox 95 09/02/23 14:00 FiO2 Intake & Output 09/01/23 09/02/23 09/02/23 18:59 06:59 18:59 Intake Total 2538 Balance 2538 Weight 41.73 kg Intake: Intake, IV Titration 2538 Amount Fluconazole in NaCl,Iso- 100 Osm 200 mg In Saline 1 100ml.bag @ 100 mls/hr IVPB DAILY@2300 [facility] Rx#: [id number] Mvi, Adult No.4 with Vit 1018 K 10 ml Trace (Conc-1Ml/ Dose) 1 ml Potassium Acetate 14 meq In Amino Acid 5%-D20w+Lytes*E* 1, 000 ml @ 60 mls/hr IV . [id number] [facility] Rx#:[id number] Mvi, Adult No.4 with Vit 720 K 10 ml Trace (Conc-1Ml/ Dose) 1 ml Sodium Acetate 30 meq Potassium Chloride 40 meq Calcium Gluconate 1 gm Magnesium Sulfate gm 1 gm Potassium Phosphate 9 mmol In Amino Acids 5 %/Dextrose 20 % 1,000 ml @ 60 mls/hr IV .[id number] [facility] Rx#: [id number] Piperacillin-Tazobactam 3 100 .375 gm In Sodium Chloride 0.9% 100 ml @ 25 mls/hr IVPB Q8HR [facility] Rx# :[id number] Sodium Chloride 0.9% 1, 600 000 ml @ 75 mls/hr IV . [id number] [facility] Rx#:[id number] Other: Voiding Method Toilet # Voids 4 5 # Bowel Movements 3 - Labs CBC & Chem 7: 09/01/23 04:11 09/02/23 04:29 Labs: Abnormal Lab Results - Last 24 Hours (Table) 09/02/23 Range/Units 04:29 Potassium 3.4 L (3.5-5.1) mmol/L Chloride 109 H (98-107) mmol/L Creatinine 0.35 L (0.52-1.04) mg/dL Glucose 109 H (74-99) mg/dL Calcium 8.3 L (8.4-10.2) mg/dL
[2023-09-02] MEDS: MVI, ADULT NO.4 WITH VIT K 10 ML, TRACE (CONC-1ML/DOSE) 1 ML, SODIUM ACETATE 30 MEQ, PO... IV SCH (18:00)
--- NOTE | 2023-09-02 18:09 | XR ---
Abdomen. HISTORY: Small bowel follow-through. TECHNIQUE: 2 supine portable views of the abdomen were obtained. FINDINGS: There is oral contrast throughout the small and large bowel which is not grossly dilated.. IMPRESSION: No evidence of bowel obstruction.
--- NOTE | 2023-09-02 21:40 | P.PN ---
Subjective Progress Note Date: 09/02/23 Principal diagnosis: Reason for follow-up is peritonitis and perforated bowel Patient is a 67-year-old female with a past medical history significant for hypertension hyperlipidemia hypothyroidism reflux presenting to the hospital for evaluation of abdominal pain and hematemesis, patient did have a CT with evidence of pneumoperitoneum and small bowel obstruction. ID consulted for management of antibiotic. On today's visit that 09/02/2023, the patient continues to be afebrile, the patient is on room air and breathing comfortably, the Pt denies having any chest pain or cough, the patient denies having any abdominal pain no vomiting having some diarrhea overall feeling better. Patient did have a creatinine 0.35 no CBC was done today small bowel x-ray mild delay in transit time through the colon, did not mention any perforation Objective - Vital Signs Vital signs: Vital Signs Temp 98.0 F 09/02/23 14:00 Pulse 62 09/02/23 14:00 Resp 17 09/02/23 14:00 BP 134/85 09/02/23 14:00 Pulse Ox 95 09/02/23 14:00 FiO2 Intake & Output 09/01/23 09/02/23 09/02/23 18:59 06:59 18:59 Intake Total 2538 Balance 2538 Weight 41.73 kg Intake: Intake, IV Titration 2538 Amount Fluconazole in NaCl,Iso- 100 Osm 200 mg In Saline 1 100ml.bag @ 100 mls/hr IVPB DAILY@2300 [facility] Rx#: [id number] Mvi, Adult No.4 with Vit 1018 K 10 ml Trace (Conc-1Ml/ Dose) 1 ml Potassium Acetate 14 meq In Amino Acid 5%-D20w+Lytes*E* 1, 000 ml @ 60 mls/hr IV . [id number] [facility] Rx#:[id number] Mvi, Adult No.4 with Vit 720 K 10 ml Trace (Conc-1Ml/ Dose) 1 ml Sodium Acetate 30 meq Potassium Chloride 40 meq Calcium Gluconate 1 gm Magnesium Sulfate gm 1 gm Potassium Phosphate 9 mmol In Amino Acids 5 %/Dextrose 20 % 1,000 ml @ 60 mls/hr IV .[id number] [facility] Rx#: [id number] Piperacillin-Tazobactam 3 100 .375 gm In Sodium Chloride 0.9% 100 ml @ 25 mls/hr IVPB Q8HR [facility] Rx# :[id number] Sodium Chloride 0.9% 1, 600 000 ml @ 75 mls/hr IV . [id number] [facility] Rx#:[id number] Other: Voiding Method Toilet # Voids 4 5 # Bowel Movements 3 - Exam GENERAL DESCRIPTION: An elderly female lying in bed in no distress RESPIRATORY SYSTEM: Unlabored breathing , decreased breath sounds at bases HEART: S1 S2 regular rate and rhythm , ABDOMEN: Soft , mild tenderness EXTREMITIES: No edema feet - Labs CBC & Chem 7: 09/01/23 04:11 09/02/23 04:29 Labs: Abnormal Lab Results - Last 24 Hours (Table) 09/02/23 Range/Units 04:29 Potassium 3.4 L (3.5-5.1) mmol/L Chloride 109 H (98-107) mmol/L Creatinine 0.35 L (0.52-1.04) mg/dL Glucose 109 H (74-99) mg/dL Calcium 8.3 L (8.4-10.2) mg/dL Assessment and Plan (1) Peritonitis Current Visit: Yes Status: Acute Code(s): K65.9 - PERITONITIS, UNSPECIFIED SNOMED Code(s): 35530053 (2) Pneumoperitoneum Current Visit: Yes Status: Acute Code(s): K66.8 - OTHER SPECIFIED DISORDERS OF PERITONEUM SNOMED Code(s): 23237416 Plan: 1patient presented hospital abdominal pain bloating and this patient has been diagnosed with the pneumoperitoneum on the CT did not mention specifically site of perforation surgical note documented possible have a perforated gastric ulcer likely on resuming colon with the enteric gram-negative both aerobes and anaerobes as well as yeast. 2blood culture has been currently pending 3-patient is afebrile improvement in her abdominal pain, patient is currently responding to the Zosyn and Diflucan, patient benefit from a repeat CT abdominal pelvis if no evidence of any abscess will transition to oral antibiotics otherwise arrange for outpatient IV Zosyn and Diflucan Dictation was produced using [employer] dictation software. please excuse any grammatical, word or spelling errors. Time with Patient: Less than 30
--- NOTE | 2023-09-03 05:50 | P.PN ---
Subjective Progress Note Date: 09/02/23 This is a pleasant 67-year-old patient, follows Dr. Villalobos. Chronic stable medical condition include GERD, hypertension, hyperlipidemia, hypothyroid. Patient is accompanied by her 2 daughters and son-in-law in the ER. Patient is seen in the hallway bed 18. Patient had an extensive workup, done both by Dr. Maddox and Dr. Ro Swift for abdominal pain. Patient also had been losing weight. Patient recently lost her . Has been eating better. Actually put on some weight. May 2023 she underwent a diagnostic laparoscopy by Dr. Maddox. It was unremarkable. This was done for small bowel obstruction. March 2023 patient underwent MR enterography-limited exam due to distended bowel loops motion and patient anatomy. Multiple dilators loops of small bowel was seen. There is some concern about fistula on the study. Pulmonary fibrotic changes. February [address] Ro Swift was found to have scattered sigmoid diverticulosis some broad based polyps were removed and normal-appearing terminal ileum. Biopsy:-Unremarkable. August 2022:-Linear erosions ulcerations in the distal esophagus consistent with LA grade C reflux esophagitis. This was done for severe epigastric pain and heartburn. Mild antral gastritis was noted. Patient yesterday started off with vomiting. Dark consistency some burgundy colored vomiting. Significant abdominal pain. Distention. Patient states her bowels have been totally erratic for some time. CT scan of the abdomen: Multiple fluid-filled and dilated small bowel loops throughout the abdomen. Fecal debris in the colon. Free air under the right diaphragm. August 2: Abdominal pain better. Feels slightly better. Family at the bedside. Per surgery patient strictly NPO. Nicotine patch was discontinued as it was felt it might interfere with healing per surgery. Spoke to the family to bring in cinnamon sticks. For insomnia instead of p.o. Restoril will give Valium 2.5 mg nightly IV. August 3: Abdominal pain much better. Had 2 small bowel movements. Diet: Ice chips popsicles. Did sit up in the chair. Discussed with patient and daughter. Getting TPN. Has a PICC line in the left upper extremity. Remains on Zosyn. Diflucan added by ID. Clinical diagnosis about perforation in the gastric vicinity. Not definitive. 08/30. Dr. Swanson took over care. Patient seen and examined. Blood work done this morning showed sodium 139, potassium 3.5, BUN 6, creatinine 0.31, currently on TPN. Patient is passing gas, having bowel movements. 08/31. Patient seen and examined. Labs this morning sodium 132, potassium 3.3, B UN is 8, creatinine 0.36, phosphorus 3.4, magnesium 2, total bilirubin 0.4, AST 29, ALT 30, total protein 4.8. Potassium replacement ordered 09/02/2023 Patient is seen today in follow-up today status post upper GI series with abdominal x-ray pending. Patient is continued on TPN and reports no abdominal pain and reports is having bowel movements and is reporting feeling hungry and would like to eat. Currently n.p.o. and will continue until advance per surgery. Electrolytes being replaced his potassium and magnesium are slightly low. Infectious disease following and patient will be continued home IV antibiotics outpatient. Case management following verifying coverage and making arrangements regarding IV antibiotic and home care on discharge. Patient is afebrile with no reports of chest pain or shortness of breath. Patient reports has been up and walking to the bathroom independently. REVIEW OF SYSTEMS: CONSTITUTIONAL: No fever, no malaise,. CARDIOVASCULAR: No chest pain, no palpitations, no syncope. PULMONARY: No shortness of breath, no cough, GASTROINTESTINAL: No diarrhea, no nausea, no vomiting, no abdominal pain. Reports having bowel movements NEUROLOGICAL: No headaches, no weakness, PHYSICAL EXAMINATION: GENERAL: The patient is alert and oriented x3, well-developed, thin built, elderly appearing. HEENT: Pupils are round and equally reacting to light. EOMI. No scleral icterus. No conjunctival pallor. Normocephalic, atraumatic. No pharyngeal erythema. No th yromegaly. CARDIOVASCULAR: S1 and S2 muffled PULMONARY: Chest is clear to auscultation, no wheezing or crackles. ABDOMEN: Soft, thin, nontender, nondistended, normoactive bowel sounds. No palpable organomegaly. MUSCULOSKELETAL: No joint swelling or deformity. EXTREMITIES: No cyanosis, clubbing, or pedal edema. NEUROLOGICAL: Gross neurological examination did not reveal any focal deficits. SKIN: No rashes. Assessment: Abdominal pain with pneumoperitoneum Possible perforated gastric ulcer Severe epigastric pain, EGD last year showed esophageal erosions Pulmonary fibrosis, on clinical examination. Also prior CT scan as alluded to same. 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 Chronic nicotine dependence cigarette smoker Severe protein calorie malnutrition with a BMI of 16.3 Insomnia Severe GERD Chronic esophagitis, from smoking, NSAIDs Plan: Patient is status post upper GI imaging scheduled to undergo abdominal x-ray which is currently pending Patient is currently NPO maintained on TPN per general surgery and diet will be advanced once cleared by surgery Replace electrolytes per protocol as potassium and magnesium are low Encouraged to increase activity as tolerated Will follow-up with repeat labs We will continue to follow with general surgery during hospitalization. Thank you kindly for this consultation. The impression and plan of care has been dictated by Brooklyn Fernández, Nurse Practitioner as directed. Dr. Mel MD I have performed a history and examination and MDM of this patient, discussed the same with the dictator, and agree with the dictator's assessment and plan as written ,documented as a scribe. Based on total visit time, I have performed more than 50% of the visit. Objective - Vital Signs Vital signs: Vital Signs Temp 98.7 F 09/02/23 08:00 Pulse 106 H 09/02/23 08:00 Resp 18 09/02/23 08:00 BP 134/88 09/02/23 08:00 Pulse Ox 97 09/02/23 08:00 FiO2 Intake & Output 09/01/23 09/02/23 09/02/23 18:59 06:59 18:59 Intake Total 2538 Balance 2538 Intake: Intake, IV Titration 2538 Amount Fluconazole in NaCl,Iso- 100 Osm 200 mg In Saline 1 100ml.bag @ 100 mls/hr IVPB DAILY@2300 [facility] Rx#: [id number] Mvi, Adult No.4 with Vit 1018 K 10 ml Trace (Conc-1Ml/ Dose) 1 ml Potassium Acetate 14 meq In Amino Acid 5%-D20w+Lytes*E* 1, 000 ml @ 60 mls/hr IV . [id number] [facility] Rx#:[id number] Mvi, Adult No.4 with Vit 720 K 10 ml Trace (Conc-1Ml/ Dose) 1 ml Sodium Acetate 30 meq Potassium Chloride 40 meq Calcium Gluconate 1 gm Magnesium Sulfate gm 1 gm Potassium Phosphate 9 mmol In Amino Acids 5 %/Dextrose 20 % 1,000 ml @ 60 mls/hr IV .[id number] [facility] Rx#: [id number] Piperacillin-Tazobactam 3 100 .375 gm In Sodium Chloride 0.9% 100 ml @ 25 mls/hr IVPB Q8HR [facility] Rx# :[id number] Sodium Chloride 0.9% 1, 600 000 ml @ 75 mls/hr IV . [id number] [facility] Rx#:[id number] Other: # Voids 4 5 # Bowel Movements 3 - Labs CBC & Chem 7: 09/01/23 04:11 09/02/23 04:29 Labs: Abnormal Lab Results - Last 24 Hours (Table) 09/01/23 09/02/23 Range/Units 04:11 04:29 RBC 3.34 L (4.10-5.20) X 10*6/uL Hgb 10.2 L (12.0-15.0) g/dL Hct 31.0 L (37.2-46.3) % RDW 14.6 H (11.5-14.5) % Potassium 3.4 L (3.5-5.1) mmol/L Chloride 109 H (98-107) mmol/L Creatinine 0.35 L (0.52-1.04) mg/dL Glucose 109 H (74-99) mg/dL Calcium 8.3 L (8.4-10.2) mg/dL
[2023-09-03 06:09] LABS: African American GFR (CKD) >90 (>60 ml/min/1.73 sqM); Anion Gap 7 mmol/L; Blood Urea Nitrogen 11 mg/dL (7-17); Calcium 7.9 mg/dL (8.4-10.2); Carbon Dioxide 23 mmol/L (22-30); Chloride 111 mmol/L (98-107); Glucose 100 mg/dL (74-99); Magnesium 2.1 mg/dL (1.6-2.3); Non-African American GFR(CKD) >90 (>60 ml/min/1.73 sqM); Phosphorus 3.1 mg/dL (2.5-4.5); Potassium 3.4 mmol/L (3.5-5.1); Sodium 141 mmol/L (137-145)
[2023-09-03] MEDS: POTASSIUM CHLORIDE 20 MEQ in WATER FOR INJECTION 1 100ML.BAG IVPB SCH (10:40)
[2023-09-03] MEDS ORDERED: IOPAMIDOL CONTRAST (ORAL USE) VIAL PO PRN (10:40)
--- NOTE | 2023-09-03 14:58 | P.DS ---
Providers Date of admission: 08/28/23 13:36 Expected date of discharge: 09/03/23 Attending physician: Brooke Fontana Consults: 08/28/23 13:54 Consult Physician Urgent Consulting Provider: Josh Lozoya Consult Reason/Comments: Medical management Do you want consulting provider notified?: Yes 08/28/23 21:23 Consult Physician Routine Consulting Provider: Leah Miranda Consult Reason/Comments: Antibiotic management Do you want consulting provider notified?: Yes, Notify in am Primary care physician: Irving Villalobos [facility] Course: Discharge diagnosis 1. Abdominal pain with pneumoperitoneum 2. Possible perforated gastric ulcer 3. Hypokalemia patient received supplement prior to discharge 4. Hypomagnesemia improved Hospital course This is a 67-year-old female who presented with epigastric and lower abdominal pain. Patient had CT scan abdomen pelvis reporting pneumoperitoneum. There were concerns of possible perforated gastric ulcer. Patient was made n.p.o. started on IV antibiotics and IV Protonix. She was given TPN for nutrition support. Patient was treated medically. No surgical intervention required. Patient seen by infectious disease. They are recommending IV antibiotics at discharge. Antibiotics have been arranged. Patient's pain is improved. She is tolerating diet. She is afebrile. She is up and ambulating. She is having bowel movements. Patient also completed a small bowel follow-through that reported no evidence of bowel obstruction. She is stable for discharge. Physician Body Welder note has been reviewed by physician. Signing provider agrees with the documented findings, assessment, and plan of care. Patient Condition at Discharge: Stable Plan - Discharge Summary Discharge Rx Participant: Yes New Discharge Prescriptions: New Fluconazole [Diflucan] 100 mg PO DAILY 10 Days #10 tablet Continue Temazepam [Restoril] 15 mg PO HS Lansoprazole [Prevacid] 30 mg PO DAILY Discontinued Ibuprofen [Advil] 200 mg PO HS Discharge Medication List Temazepam [Restoril] 15 mg PO HS 09/10/22 [History] Lansoprazole [Prevacid] 30 mg PO DAILY 03/02/23 [History] Fluconazole [Diflucan] 100 mg PO DAILY 10 Days #10 tablet 09/03/23 [Rx] Follow up Appointment(s)/Referral(s): Irving Villalobos DO [Primary Care Provider] - 1-2 days [facility], [REFERRING] - As Needed (They will deliver IV antibiotics tonight between 6-8p) [facility] Visiting Nurse, [NON-STAFF] - As Needed Luis Maddox MD [Medical Doctor] - 1 Week Activity/Diet/Wound Care/Special Instructions: IV antibiotics per infectious disease Continue low fiber diet Discharge Disposition: HOME WITH HOME HEALTH SERVICES
[2023-09-03 16:01] VITALS: BP 110/72; PULSE 88; RESP 19; TEMP 97.5
--- NOTE | 2023-09-04 06:32 | P.PN ---
Subjective Progress Note Date: 09/03/23 This is a pleasant 67-year-old patient, follows Dr. Villalobos. Chronic stable medical condition include GERD, hypertension, hyperlipidemia, hypothyroid. Patient is accompanied by her 2 daughters and son-in-law in the ER. Patient is seen in the hallway bed 18. Patient had an extensive workup, done both by Dr. Maddox and Dr. Ro Swift for abdominal pain. Patient also had been losing weight. Patient recently lost her . Has been eating better. Actually put on some weight. May 2023 she underwent a diagnostic laparoscopy by Dr. Maddox. It was unremarkable. This was done for small bowel obstruction. March 2023 patient underwent MR enterography-limited exam due to distended bowel loops motion and patient anatomy. Multiple dilators loops of small bowel was seen. There is some concern about fistula on the study. Pulmonary fibrotic changes. February [address] Ro Swift was found to have scattered sigmoid diverticulosis some broad based polyps were removed and normal-appearing terminal ileum. Biopsy:-Unremarkable. August 2022:-Linear erosions ulcerations in the distal esophagus consistent with LA grade C reflux esophagitis. This was done for severe epigastric pain and heartburn. Mild antral gastritis was noted. Patient yesterday started off with vomiting. Dark consistency some burgundy colored vomiting. Significant abdominal pain. Distention. Patient states her bowels have been totally erratic for some time. CT scan of the abdomen: Multiple fluid-filled and dilated small bowel loops throughout the abdomen. Fecal debris in the colon. Free air under the right diaphragm. August 2: Abdominal pain better. Feels slightly better. Family at the bedside. Per surgery patient strictly NPO. Nicotine patch was discontinued as it was felt it might interfere with healing per surgery. Spoke to the family to bring in cinnamon sticks. For insomnia instead of p.o. Restoril will give Valium 2.5 mg nightly IV. August 3: Abdominal pain much better. Had 2 small bowel movements. Diet: Ice chips popsicles. Did sit up in the chair. Discussed with patient and daughter. Getting TPN. Has a PICC line in the left upper extremity. Remains on Zosyn. Diflucan added by ID. Clinical diagnosis about perforation in the gastric vicinity. Not definitive. 08/30. Dr. Swanson took over care. Patient seen and examined. Blood work done this morning showed sodium 139, potassium 3.5, BUN 6, creatinine 0.31, currently on TPN. Patient is passing gas, having bowel movements. 08/31. Patient seen and examined. Labs this morning sodium 132, potassium 3.3, B UN is 8, creatinine 0.36, phosphorus 3.4, magnesium 2, total bilirubin 0.4, AST 29, ALT 30, total protein 4.8. Potassium replacement ordered 09/02/2023 Patient is seen today in follow-up today status post upper GI series with abdominal x-ray pending. Patient is continued on TPN and reports no abdominal pain and reports is having bowel movements and is reporting feeling hungry and would like to eat. Currently n.p.o. and will continue until advance per surgery. Electrolytes being replaced his potassium and magnesium are slightly low. Infectious disease following and patient will be continued home IV antibiotics outpatient. Case management following verifying coverage and making arrangements regarding IV antibiotic and home care on discharge. Patient is afebrile with no reports of chest pain or shortness of breath. Patient reports has been up and walking to the bathroom independently. 09/03/2023 Patient seen and evaluated in follow-up today with plans on being discharged home. TPN has been weaned and patient has been started on diet and tolerating. Patient is having bowel movements. Electrolytes were replaced and within normal limits. Infectious disease following along with case management making discharge planning arrangements regarding IV antibiotics. Patient reports to feeling well and would like to go home. Patient is medically stable once cleared by surgery and infectious disease. REVIEW OF SYSTEMS: CONSTITUTIONAL: No fever, no malaise,. CARDIOVASCULAR: No chest pain, no palpitations, no syncope. PULMONARY: No shortness of breath, no cough, GASTROINTESTINAL: No diarrhea, no nausea, no vomiting, no abdominal pain. Reports having bowel movements NEUROLOGICAL: No headaches, no weakness, PHYSICAL EXAMINATION: GENERAL: The patient is alert and oriented x3, well-developed, thin built, elderly appearing. HEENT: Pupils are round and equally reacting to light. EOMI. No scleral icterus. No conjunctival pallor. Normocephalic, atraumatic. No pharyngeal erythema. No thyromegaly. CARDIOVASCULAR: S1 and S2 muffled PULMONARY: Chest is clear to auscultation, no wheezing or crackles. ABDOMEN: Soft, thin, nontender, nondistended, normoactive bowel sounds. No palpable organomegaly. MUSCULOSKELETAL: No joint swelling or deformity. EXTREMITIES: No cyanosis, clubbing, or pedal edema. NEUROLOGICAL: Gross neurological examination did not reveal any focal deficits. SKIN: No rashes. Assessment: Abdominal pain with pneumoperitoneum Possible perforated gastric ulcer Severe epigastric pain, EGD last year showed esophageal erosions Pulmonary fibrosis, on clinical examination. Also prior CT scan as alluded to same. 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 Patient was continued on TPN although has been weaned off and diet being advanced. Patient is tolerating diet and is being scheduled for discharge home per surgery Encouraged to increase activity as tolerated Patient is medically stable once discharged by general surgery. Case management following making arrangements for discharge planning including IV antibiotics with infectious disease following. Patient does have a PICC line. We will continue to follow with general surgery during hospitalization. Thank you kindly for this consultation. The impression and plan of care has been dictated by Brooklyn Fernández, Nurse Practitioner as directed. Dr. Mel MD I have performed a history and examination and MDM of this patient, discussed the same with the dictator, and agree with the dictator's assessment and plan as written ,documented as a scribe. Based on total visit time, I have performed more than 50% of the visit. Objective - Vital Signs Vital signs: Vital Signs Temp 97.8 F 09/03/23 07:17 Pulse 93 09/03/23 07:20 Resp 16 09/03/23 07:20 BP 122/83 09/03/23 07:17 Pulse Ox 98 09/03/23 07:17 FiO2 Intake & Output 09/02/23 09/03/23 09/03/23 18:59 06:59 18:59 Weight 41.73 kg Other: Voiding Method Toilet Toilet Toilet # Voids 0 - Labs CBC & Chem 7: 09/01/23 04:11 09/03/23 04:48 Labs: Abnormal Lab Results - Last 24 Hours (Table) 09/03/23 Range/Units 04:48 Potassium 3.4 L (3.5-5.1) mmol/L Chloride 111 H (98-107) mmol/L Creatinine 0.35 L (0.52-1.04) mg/dL Glucose 100 H (74-99) mg/dL Calcium 7.9 L (8.4-10.2) mg/dL Microbiology - Last 24 Hours (Table) 08/28/23 14:17 Blood Culture - Final Blood 08/28/23 14:07 Blood Culture - Final Blood
== END 2023-09-03 16:41 | disposition home health service (06) | DRG 377 ==
LOC: EC 11:13 → 4SSUR 13:36
PROVIDERS: ADMIT Surgery Plastic and Reconstructive Surgery; ATTEND Surgery Plastic and Reconstructive Surgery
PROC: B5181ZA Fluoroscopy of Superior Vena Cava using Low Osmolar Contrast, Guidance (ICD-10-PCS; 2023-08-29)
PROC: B548ZZA Ultrasonography of Superior Vena Cava, Guidance (ICD-10-PCS; 2023-08-29)
PROC: 3E0336Z Introduction of Nutritional Substance into Peripheral Vein, Percutaneous Approach (ICD-10-PCS; 2023-08-29)
PROC: 05HC33Z Insertion of Infusion Device into Left Basilic Vein, Percutaneous Approach (ICD-10-PCS; 2023-08-29)
PROC: 02HV33Z Insertion of Infusion Device into Superior Vena Cava, Percutaneous Approach (ICD-10-PCS; principal; 2023-08-29 10:25)
DX: K26.6 Chronic or unspecified duodenal ulcer with both hemorrhage and perforation (principal); E43 Unspecified severe protein-calorie malnutrition; Z68.1 Body mass index [BMI] 19.9 or less, adult; J44.0 Chronic obstructive pulmonary disease with (acute) lower respiratory infection; K22.10 Ulcer of esophagus without bleeding; K66.8 Other specified disorders of peritoneum; E87.6 Hypokalemia; E83.42 Hypomagnesemia; Z88.1 Allergy status to other antibiotic agents; E03.9 Hypothyroidism, unspecified; Z79.890 Hormone replacement therapy; K21.9 Gastro-esophageal reflux disease without esophagitis; E78.5 Hyperlipidemia, unspecified; X58.XXXA Exposure to other specified factors, initial encounter; I10 Essential (primary) hypertension; K21.00 Gastro-esophageal reflux disease with esophagitis, without bleeding; J84.10 Pulmonary fibrosis, unspecified; R00.0 Tachycardia, unspecified; T39.395A Adverse effect of other nonsteroidal anti-inflammatory drugs [NSAID], initial encounter; G47.00 Insomnia, unspecified; G89.29 Other chronic pain; I07.1 Rheumatic tricuspid insufficiency; F17.210 Nicotine dependence, cigarettes, uncomplicated; Z98.51 Tubal ligation status
CPT/HCPCS: 36415; 36573; 71045; 74018; 74177; 74250; 80048; 80053; 82330; 83605; 83735; 84100; 84478; 85025; 85027; 85610; 85730; 87040; 93306; 96361; 96374; 96375; 99285

== ENCOUNTER → 2023-10-29 | Day surgery (SDC) | payer MEDICARE ==
[2023-10-25 11:44] VITALS: BMI 14.5
[~2023-10-29] MED LIST changes: -GLUCAGON 1 MG/ML VIAL IM STA; +LIDOCAINE 2% (PF) 20 MG/ML 5 ML VIAL ONE; +PROPOFOL 10 MG/ML 20 ML VIAL IV ONE
[2023-10-29] MEDS: IV FLUID CONTINUATION 1,000 ML IV ONE (12:33)
[2023-10-29] MEDS: LACTATED RINGERS 1,000 ML IV SCH (13:04)
[2023-10-29 13:06] VITALS: RESP 16; TEMP 97.7
--- NOTE | 2023-10-29 13:18 | P.GSHP ---
History of Present Illness H&P Date: 10/29/23 Chief Complaint: Abdominal pain 67-year-old female here for EGD. Patient was recently hospitalized with suspected perforated ulcer. Still having intermittent abdominal discomforts and bloating. Remains on antiacids. Past Medical History Past Medical History: GERD/Reflux Additional Past Medical History / Comment(s): 40lb wt loss over the last year,poor appetite because stomach feels bloating after dinner, able to eat lunch,hx no longer needing to take b/p medications,Raynaud's, diarrea constipation History of Any Multi-Drug Resistant Organisms: None Reported Past Surgical History: Tubal Ligation Additional Past Surgical History / Comment(s): COLONOSCOPY, Past Anesthesia/Blood Transfusion Reactions: No Reported Reaction Additional Past Anesthesia/Blood Transfusion Reaction / Comment(s): no hx blood transfusion Smoking Status: Current every day smoker - Past Family History Father Family Medical History: Cancer Additional Family Medical History / Comment(s): prostate kidney Mother Family Medical History: Cancer Additional Family Medical History / Comment(s): lung Medications and Allergies Home Medications Medication Instructions Recorded Confirmed Type Temazepam [Restoril] 15 mg PO HS 09/10/22 10/29/23 History Lansoprazole [Prevacid] 30 mg PO DAILY 03/02/23 10/29/23 History Allergies Allergy/AdvReac Type Severity Reaction Status Date / Time clindamycin AdvReac joint pain Verified 10/29/23 12:35 Surgical - Exam Vital Signs Temp Pulse Resp BP Pulse Ox 97.7 F 59 L 16 100/56 98 10/29/23 12:44 10/29/23 12:44 10/29/23 12:44 10/29/23 12:44 10/29/23 12:44 Physical exam: General: Well-developed, malnourished appearing HEENT: Normocephalic, sclerae nonicteric Abdomen: Nontender, nondistended Extremities: No edema Neuro: Alert and oriented Assessment and Plan (1) Abdominal pain Narrative/Plan: Will proceed with EGD at this time Current Visit: Yes Status: Acute Code(s): R10.9 - UNSPECIFIED ABDOMINAL PAIN SNOMED Code(s): 54038416
--- NOTE | 2023-10-29 13:27 | P.PCN ---
Date of Procedure: 10/29/23 Procedure(s) Performed: Preoperative Dx: Epigastric pain, history of possible ulcer Postoperative Dx: Gastritis, small hiatal hernia, distal esophagitis Procedure: EGD with Bx Anesthesia: Sedation Endoscopist: Dr. Maddox Specimens: Antrum, distal esophagus Endoscopic Procedure: The patient was on the endoscopy table in the left decubitus position. The Olympus gastroscope was inserted into the oropharynx and passed under direct visualization to the region of the third portion of the duodenum. From that point the scope was slowly withdrawn inspecting all surfaces carefully. There were no neoplastic inflammatory or polypoid lesions throughout the duodenum. There did appear to be some scarring of the duodenum with loss of distensibility possibly related to prior ulcer disease. No visible scar was seen. The pylorus was widely patent. The stomach was carefully inspected. There was diffuse gastritis present. A biopsy of the antrum took place to rule out H. pylori. Retroflexion revealed a small sliding hiatal hernia. At the distal esophagus there were linear erosions that were noncircumf erential that were biopsied. These measured 2 cm in length. Mid and proximal esophagus appeared normal. The patient was then taken to the recovery room in stable condition per anesthesia guidelines. Recommendations: Await biopsy results. Continue antiacids.
[2023-10-29 14:08] VITALS: BP 99/64; PULSE 73
== END ==
LOC: ORWHC2ENDO 11:37
PROVIDERS: ATTEND Surgery
DX: K29.50 Unspecified chronic gastritis without bleeding (principal); K21.00 Gastro-esophageal reflux disease with esophagitis, without bleeding; K44.9 Diaphragmatic hernia without obstruction or gangrene; F17.210 Nicotine dependence, cigarettes, uncomplicated; Z98.51 Tubal ligation status; Z88.1 Allergy status to other antibiotic agents; Z79.899 Other long term (current) drug therapy
CPT/HCPCS: 88305; 43239; J2704; J2001; 88342

== ENCOUNTER 2023-12-18 22:45 | Inpatient (IN) | payer MEDICARE ==
[~2023-12-18 22:45] MED LIST changes: +DEXTROSE 5%-0.9% NACL 1,000 ML BAG IV ONE; +DEXTROSE 50% SYRINGE 50 ML IVP ONE; -LIDOCAINE 2% (PF) 20 MG/ML 5 ML VIAL ONE; -PROPOFOL 10 MG/ML 20 ML VIAL IV ONE; +SODIUM CHLORIDE 0.9% 1,000 ML BAG ONE; +SODIUM CHLORIDE 0.9% 100 ML BAG ONE; +fentaNYL (PF) 50 MCG/ML 2 ML AMP ONE
[2023-12-18] MEDS ORDERED: fentaNYL (PF) 50 MCG/ML 2 ML AMP ONE (23:04)
[2023-12-18] MEDS ORDERED: PIPERACILLIN-TAZOBACTAM 3.375 GM VIAL ONE (23:23)
[2023-12-19] MEDS ORDERED: MORPHINE SULFATE 2 MG/ML SYRINGE ONE ×3 (00:58→16:22)
[2023-12-19] MEDS ORDERED: PIPERACILLIN-TAZOBACTAM 3.375 GM VIAL ONE ×3 (01:40→15:27)
[2023-12-19] MEDS ORDERED: NICOTINE 14MG/24HR PATCH TRANSDERM ONE ×2 (01:40→07:45)
[2023-12-19] MEDS ORDERED: LORazepam 2 MG/ML INJ ONE (03:33)
[2023-12-19] MEDS ORDERED: HEPARIN SODIUM,PORCINE 5,000 UNIT/ML 1 ML VIAL ONE (07:45)
[2023-12-19] MEDS ORDERED: FAMOTIDINE 20 MG/2 ML VIAL ONE (07:45)
[2023-12-19] MEDS ORDERED: metroNIDAZOLE-NS PMX 100 ML ONE (11:06)
--- NOTE | 2024-01-07 12:20 | CT ---
Jhoana Mcclellan ID: [id number] : 1955 EXAMINATION TYPE: CT abdomen pelvis wo con DATE OF EXAM: 12/18/2023 COMPARISON: CT 08/28/2023 HISTORY: 68-year-old female abdominal pain and distention, abnormal x-ray CT DLP: 264.2 mGycm. Automated exposure control for dose reduction was used. TECHNIQUE: Contiguous axial scanning of the abdomen and pelvis without IV contrast. Coronal and sagit heron reconstructions performed. FINDINGS: Generalized anasarca change. Heart upper limits of normal in size. Extensive basilar fibrosis with honeycombing. Some patchy opacity at the basilar left lower lobe has increased. Markedly limited assessment due to positive intra-abdominal fat, extensive free air/pneumoperitoneum, and lack of contrast. There is also portal venous gas demonstrated. Bowel wall pneumatosis extensive ly involves multiple small bowel loops. Moderate free fluid in the pelvis. Unable to accurately follo w any of the bowel loops but there is dilatation up to 6.2 cm. Unable to assess the adrenal glands or pancreas. No obvious hydronephrosis is seen. Spleen is normal size. Moderate distention of the urinary bladder. Hypertrophic facet arthropathy mid to lower lumbar spine. IMPRESSION: Very limited exam due to diffuse anasarca, paucity of intra-abdominal fat, extensive free air, extens reno small bowel wall pneumatosis, and lack of contrast. There is portal venous gas in the liver and s mall bowel dilatation up to 6.2 cm. Moderate pelvic free fluid. Findings suggest ischemic bowel and p erforation. Critical findings called to Dr. Capone in the ER at 8:55 PM.
--- NOTE | 2024-01-08 14:37 | XR ---
Vy, Kim Saen ID: [id number] : 1955 EXAMINATION TYPE: XR abdomen 2V DATE OF EXAM: 12/18/2023 CLINICAL DATA: 68-year-old female with weakness COMPARISON: Small bowel follow-through 09/02/[address] 08/28/2023 FINDINGS: Moderate pneumoperitoneum. There are gas throughout dilated bowel loops, suspected extensiv e small bowel wall pneumatosis. Very dilated up to 7.3 cm. Scattered colonic air is also noted extend ing distally to the rectum. IMPRESSION: Suspect extensive small bowel wall pneumatosis with secondary perforation and moderate pn eumoperitoneum. Check lactic acid levels and correlate for bowel ischemia. Critical findings called piper Capone in the ER at 7:50 PM.
== END 2023-12-19 17:58 | DRG 871 ==
LOC: 2SICU 22:45
PROVIDERS: ADMIT Hospitalist; ATTEND Hospitalist
DX: A41.9 Sepsis, unspecified organism (principal); K63.1 Perforation of intestine (nontraumatic); J84.9 Interstitial pulmonary disease, unspecified; I73.00 Raynaud's syndrome without gangrene; J44.9 Chronic obstructive pulmonary disease, unspecified; I10 Essential (primary) hypertension; K21.9 Gastro-esophageal reflux disease without esophagitis; F17.210 Nicotine dependence, cigarettes, uncomplicated; F41.9 Anxiety disorder, unspecified; Z98.51 Tubal ligation status; K66.8 Other specified disorders of peritoneum; E16.2 Hypoglycemia, unspecified; Z87.19 Personal history of other diseases of the digestive system; Z88.1 Allergy status to other antibiotic agents
CPT/HCPCS: 71046; 74019; 74176; 86850; 86900; 86901; 87040; 93005; 99291

== ENCOUNTER 2024-01-04 22:29 | Inpatient (IN) | payer MEDICARE ==
--- NOTE | 2024-01-04 23:06 | ED ---
Chest Pain HPI - General Source: patient Mode of arrival: EMS Limitations: no limitations <Ellis Menjivar - Last Filed: 01/04/24 23:06> - General Source: RN notes reviewed, old records reviewed Mode of arrival: EMS Limitations: no limitations - History of Present Illness MD Complaint: chest pain, other (Weakness debility anorexia) -: month(s) Pain Radiation: none Severity: severe Severity scale (1-10): 9 Consistency: constant Improves With: nothing Worsens With: nothing Context: recent illness, recent surgery, recent immobilization, new medications Treatments Prior to Arrival: none <Karlo Singer - Last Filed: 01/23/24 16:54> - General Chief Complaint: Chest Pain Stated Complaint: CHEST PAIN Time Seen by Provider: 01/04/24 23:06 - History of Present Illness Initial Comments: Patient's old female presenting chief complaint of chest pain. Pain started this evening feels a squeezing sensation in the center of her chest. Admits to shortness of breath. Patient was recently diagnosed with scleroderma. (Ellis Menjivar) This is a 68 female presents for chest pain anterior chest pain and tightness. Patient is guarded over diagnosis severe abdominal pain nausea vomiting failure to thrive falls. Patient has multiple recent inpatient hospital admissions recent abdominal surgery and patient has been home for 2 days since prior hospitalization. Patient is not eating or drinking and unable to take care of herself (Karlo Singer) - Related Data Home Medications Medication Instructions Recorded Confirmed Lansoprazole [Prevacid] 30 mg PO BID 03/02/23 01/05/24 Acetaminophen Tab [Tylenol] 500 mg PO Q6H PRN 01/05/24 01/05/24 Empagliflozin [Jardiance] 10 mg PO DAILY 01/05/24 01/05/24 Metoprolol Succinate [Metoprolol 25 mg PO DAILY 01/05/24 01/05/24 Succinate ER] Naloxone HCl [Narcan] 4 mg NASAL ONCE PRN 01/05/24 01/05/24 Spironolactone [Aldactone] 25 mg PO DAILY 01/05/24 01/05/24 Valsartan [Diovan] 40 mg PO BID 01/05/24 01/05/24 bisacodyL 10 mg RECTAL DAILY 01/05/24 01/05/24 oxyCODONE HCL [OxyIR] 5 mg PO Q4H PRN 01/05/24 01/05/24 traZODone HCL [Desyrel] 12.5 mg PO HS 01/05/24 01/05/24 Previous Rx's Medication Instructions Recorded Levothyroxine Sodium [Synthroid] 25 mcg PO DAILY@0630 tab 01/07/24 Allergies Allergy/AdvReac Type Severity Reaction Status Date / Time clindamycin AdvReac joint pain Verified 01/05/24 10:26 Review of Systems ROS Other: All systems not noted in ROS Statement are negative. <Ellis Menjivar - Last Filed: 01/04/24 23:06> ROS Other: All systems not noted in ROS Statement are negative. <Karlo Singer - Last Filed: 01/23/24 16:54> ROS Statement: Those systems with pertinent positive or pertinent negative responses have been documented in the HPI. EKG Findings - EKG Comments: EKG Findings:: EKG is sinus tachycardia 108 OK 158 QRS 77 QTc 395 - EKG Results: EKG: interpreted by ERMD <Karlo Singer - Last Filed: 01/23/24 16:54> Past Medical History Past Medical History: GERD/Reflux Additional Past Medical History / Comment(s): 40lb wt loss over the last ye ar,poor appetite because stomach feels bloating after dinner, able to eat lunch,hx no longer needing to take b/p medications,Raynaud's, diarrea constipation. scleroderma History of Any Multi-Drug Resistant Organisms: None Reported Past Surgical History: Tubal Ligation Additional Past Surgical History / Comment(s): COLONOSCOPY, Past Anesthesia/Blood Transfusion Reactions: No Reported Reaction Additional Past Anesthesia/Blood Transfusion Reaction / Comment(s): no hx blood transfusion Past Psychological History: No Psychological Hx Reported Smoking Status: Current every day smoker Past Alcohol Use History: None Reported Past Drug Use History: None Reported - Past Family History Father Family Medical History: Cancer Additional Family Medical History / Comment(s): prostate kidney Mother Family Medical History: Cancer Additional Family Medical History / Comment(s): lung <Ellis Menjivar - Last Filed: 01/04/24 23:06> General Exam Limitations: no limitations <Ellis Menjivar - Last Filed: 01/04/24 23:06> Limitations: no limitations, altered mental status General appearance: alert, anxious, in distress, cachectic Head exam: Present: atraumatic, normocephalic, normal inspection Eye exam: Present: normal appearance, PERRL, EOMI. Absent: scleral icterus, conjunctival injection, periorbital swelling ENT exam: Present: normal exam, mucous membranes dry Neck exam: Present: normal inspection. Absent: tenderness, meningismus, lymphadenopathy Respiratory exam: Present: normal lung sounds bilaterally. Absent: respiratory distress, wheezes, rales, rhonchi, stridor Cardiovascular Exam: Present: regular rate, normal rhythm, normal heart sounds. Absent: systolic murmur, diastolic murmur, rubs, gallop, clicks GI/Abdominal exam: Present: soft, normal bowel sounds. Absent: distended, tenderness, guarding, rebound, rigid Extremities exam: Present: normal inspection, full ROM, normal capillary refill. Absent: tenderness, pedal edema, joint swelling, calf tenderness Back exam: Present: normal inspection Neurological exam: Present: alert, oriented X3, CN II-XII intact Psychiatric exam: Present: normal affect, normal mood Skin exam: Present: warm, dry, intact, normal color. Absent: rash <Karlo Singer - Last Filed: 01/23/24 16:54> - General Exam Comments Initial Comments: Visual Physical Exam Vital signs reviewed General: Appears malnourished, nontoxic, no acute distress. Head: Normocephalic, atraumatic Eyes: PERRLA, EOMI ENT: Airway patent Chest: Nonlabored breathing Skin: No visual rash, normal skin tone Neuro: Alert and oriented 3 Musculoskeletal: No gross abnormalities (Ellis Menjivar) Course <Karlo Singer - Last Filed: 01/23/24 16:54> Vital Signs 01/04/24 01/05/24 01/05/24 22:39 02:14 04:00 Temperature 97.4 F L Pulse Rate 84 106 H 89 Respiratory 16 18 18 Rate Blood Pressure 103/68 107/69 117/87 O2 Sat by Pulse 95 95 Oximetry 01/05/24 01/05/24 01/05/24 05:01 07:00 07:30 Temperature 97.9 F Pulse Rate 110 H 107 H 113 H Respiratory 16 16 18 Rate Blood Pressure 91/65 100/67 113/72 O2 Sat by Pulse 95 95 96 Oximetry 01/05/24 01/05/24 01/05/24 09:03 09:23 11:24 Temperature Pulse Rate 105 H 108 H Respiratory 16 16 Rate Blood Pressure 107/66 92/75 O2 Sat by Pulse 95 Oximetry 01/05/24 01/05/24 01/05/24 12:03 13:42 15:13 Temperature 97.8 F Pulse Rate 94 100 Respiratory 16 18 18 Rate Blood Pressure 96/69 82/64 O2 Sat by Pulse 94 L Oximetry 01/05/24 01/05/24 01/05/24 15:53 17:00 17:47 Temperature Pulse Rate 102 H 87 99 Respiratory 18 18 18 Rate Blood Pressure 88/61 106/62 100/69 O2 Sat by Pulse 92 L 94 L 92 L Oximetry 01/05/24 01/05/24 01/06/24 21:16 21:31 01:23 Temperature Pulse Rate 98 98 101 H Respiratory 16 18 Rate Blood Pressure 88/54 104/66 95/65 O2 Sat by Pulse 97 Oximetry 01/06/24 01/06/24 01/06/24 03:51 05:00 06:34 Temperature Pulse Rate 100 105 H 98 Respiratory 18 16 16 Rate Blood Pressure 95/67 90/66 92/62 O2 Sat by Pulse 93 L 94 L 93 L Oximetry 01/06/24 07:33 Temperature Pulse Rate 111 H Respiratory 18 Rate Blood Pressure 100/66 O2 Sat by Pulse 95 Oximetry - Reevaluation(s) Reevaluation #1: 01/05/24 00:10 Medical records reviewed (Karlo Singer) Reevaluation #2: 01/05/24 00:11 Patient symptoms unchanged (Karlo Singer) Reevaluation #3: 01/05/24 00:11 Informed of results questions answered With family at length regarding findings here in the emergency department and they are continuing to refuse transfer here he do not want to go back to [facility] do not want any further surgeries They continue to state the patient's abnormal CT scan findings are normal for this patient and her surgery that she did have prior was on diagnostic (Karlo Singer) Reevaluation #4: Was pt. sent in by a medical professional or institution ([facility] Arellano, TIRE FABRICATOR, urgent care, hospital, or long term...) When possible be specific @ -no Did you speak to anyone other than the patient for history (EMS, parent, family, police, friend...)? What history was obtained from this source @ -no Did you review nursing and triage notes (agree or disagree)? Why? @ -agree Are old charts reviewed (outside hosp., previous admission, EMS record, old EKG, old radiological studies, urgent care reports/EKG's, long term records)? Report findings @ -yes Differential Diagnosis (chest pain, altered mental status, abdominal pain women, abdominal pain men, vaginal bleeding, weakness, fever, dyspnea, syncope, headache, dizziness, GI bleed, back pain, seizure, CVA, palpatations, mental health, musculoskeletal)? @ -prior EKG interpreted by me (3pts min.). @ -yes X-rays interpreted by me (1pt min.). @ -yes negative for acute disease CT interpreted by me (1pt min.). @ -Positive pneumatosis U/S interpreted by me (1pt. min.). @ -no What testing was considered but not performed or refused? (CT, X-rays, U/S, labs)? Why? @ -none What meds were considered but not given or refused? Why? @ -none Did you discuss the management of the patient with other professionals (professionals i.e. [facility] Arellano, TIRE FABRICATOR, lab, RT, psych nurse, director of social media marketing, optical element coater, teacher, environmental officer, embedded case manager)? Give summary @ -no Was smoking cessation discussed for >3mins.? @ -no Was critical care preformed (if so, how long)? @ -yes31 Were there social determinants of health that impacted care today? How? (Homelessness, low income, unemployed, alcoholism, drug addiction, transportation, low edu. Level, literacy, decrease access to med. care, alf, rehab)? @ -none Was there de-escalation of care discussed even if they declined (Discuss DNR or withdrawal of care, Hospice)? DNR status @ -no What co-morbidities impacted this encounter? (DM, HTN, Smoking, COPD, CAD, Cancer, CVA, ARF, Chemo, Hep., AIDS, mental health diagnosis, sleep apnea, morbid obesity)? @ -none Was patient admitted / discharged? Hospital course, mention meds given and route, prescriptions, significant lab abnormalities, going to OR and other pertinent info. @ - 68 female to the ER for evaluation today. Patient presents today for evaluation regards to weakness debility decreased oral intake unable to eat or drink. Complicated medical course with recent inpatient evaluation and transferred to [facility] where she had exploratory surgery. Family states findings on CT scan here are the same as they have been and they do not want transfer back to [facility] they are hoping for outpatient subacute rehab. Patient is refusing any surgical intervention here in the hospital and has been seen by our primary and surgical team here in this hospital. Patient will be admitted for symptom management and transitioning to rehab versus hospice care Admitted Undiagnosed new problem with uncertain prognosis? @ -no Drug Therapy requiring intensive monitoring for toxicity (Heparin, Nitro, Insulin, Cardizem)? @ -no Were any procedures done? @ -Central line for IV access Diagnosis/symptom? @ -Failure to thrive, weakness, anorexia, weight loss, pneumatosis intestinalis Acute, or Chronic, or Acute on Chronic? @ -Acute Uncomplicated (without systemic symptoms) or Complicated (systemic symptoms)? @ -Complicated Side effects of treatment? @ -no Exacerbation, Progression, or Severe Exacerbation? @ -exacerbation Poses a threat to life or bodily function? How? (Chest pain, [place], [place], pneumonia, PE, COPD, DKA, ARF, appy, cholecystitis, CVA, Diverticulitis, Homicidal, Suicidal, threat to staff... and all critical care pts) @ -yes significant failure to thrive (Karlo Singer) Reevaluation #5: Differential Weakness: Hypoglycemia, shock, sepsis, hyponatremia, anemia, infection, IN, ETOH, adverse medicine reaction, overdose, stroke, this is not meant to be an all-inclusive list. (Karlo Singer) - Consultations Consultation #1: Spoke with [facility] who agrees to admit this patient (Karlo Singer) Consultation #2: Dr. Fontana who is aware of this patient, she is refusing admission due to CT scan findings but with the family refusing transfer she will consult on this patient (Karlo Singer) Procedures - Central Line Placement Left Femoral Consent Obtained: verbal consent Patient Placed on Monitor/Pulse Ox: Yes MD Prep: mask, gown, gloves Central Line Prep: Povidone-Iodine 1%, sterile drapes applied Local Anesthesia Used: Lidocaine 1% Ultrasound Used for Placement: Yes Central Line Lumen Inserted: triple Bloods Obtained for Lab: Yes Central Line Position: good blood return, all ports aspirated, flushed, capped, sutured in place with 3-0 nylon Dressing Applied: Tegaderm Post Procedure X-Ray: tip of catheter in good position Patient Tolerated Procedure: well Complications: none <Karlo Singer - Last Filed: 01/23/24 16:54> Chest Pain MDM <Ellis Menjivar - Last Filed: 01/04/24 23:06> <Karlo Singer - Last Filed: 01/23/24 16:54> - MDM I performed the quick note portion of this visit, electronically signed Ellis Menjivar PA-C (Ellis Menjivar) 68 female to the ER for evaluation today. Patient presents today for evaluation regards to weakness debility decreased oral intake unable to eat or drink. Complicated medical course with recent inpatient evaluation and transferred to [facility] where she had exploratory surgery. Family states findings on CT scan here are the same as they have been and they do not want transfer back to [facility] they are hoping for outpatient subacute rehab. Patient is refusing any surgical intervention here in the hospital and has been seen by our primary and surgical team here in this hospital. Patient will be admitted for symptom management and transitioning to rehab versus hospice care (Karlo Singer) Critical Care Time Critical Care Time: Yes Total Critical Care Time: 31 <Karlo Singer - Last Filed: 01/23/24 16:54> Disposition <Ellis Menjivar - Last Filed: 01/04/24 23:06> Is patient prescribed a controlled substance at d/c from ED?: No Time of Disposition: 00:10 <Karlo Singer - Last Filed: 01/23/24 16:54> Clinical Impression: Enteritis, Abdominal pain, Failure to thrive, Weakness, Debility, Anorexia Disposition: ADMITTED IP TO THIS HOSP Condition: Fair
[2024-01-04 23:56] LABS: Glucose,Whole Blood 80 mg/dL (70-110)
--- NOTE | 2024-01-05 01:00 | XR ---
EXAM: XR Chest, 2 Views CLINICAL HISTORY: ITS.REASON XR Reason: Chest Pain TECHNIQUE: Frontal and lateral views of the chest. COMPARISON: No relevant prior studies available. FINDINGS: Lungs: Mild consolidations at the lung bases, correlate for mild pneumonia. Pleural space: Unremarkable. No pneumothorax. Heart: Unremarkable. No cardiomegaly. Mediastinum: Unremarkable. Normal mediastinal contour. Bones/joints: Unremarkable. No acute fracture. Upper abdomen: Below both diaphragms. IMPRESSION: Mild consolidations at the lung bases, correlate for mild pneumonia.
--- NOTE | 2024-01-05 01:30 | CT ---
EXAM: CT Abdomen and Pelvis Without Intravenous Contrast CLINICAL HISTORY: ITS.REASON CT Reason: pain TECHNIQUE: Axial computed tomography images of the abdomen and pelvis without intravenous contrast. CTDI is 4 mGy and DLP is 239.7 mGy-cm. This CT exam was performed using one or more of the following dose reduction techniques: automated exposure control, adjustment of the mA and/or kV according to patient size, and/or use of iterative reconstruction technique. COMPARISON: No relevant prior studies available. FINDINGS: Lung bases: Severe diffuse changes COPD. No consolidation. ABDOMEN: Liver: Unremarkable. Gallbladder and bile ducts: Unremarkable. No calcified stones. No ductal dilation. Pancreas: Unremarkable. No ductal dilation. Spleen: Unremarkable. No splenomegaly. Adrenals: Unremarkable. No mass. Kidneys and ureters: Unremarkable. No obstructing stones. No hydronephrosis. Stomach and bowel: There is pneumatosis coli seen within numerous loops of small bowel, large bowel, and rectum. Massive distention of the stomach. Ileus. PELVIS: Appendix: No findings to suggest acute appendicitis. Bladder: Unremarkable. No stones. Reproductive: Unremarkable as visualized. ABDOMEN and PELVIS: Intraperitoneal space: Unremarkable. No free air. No significant fluid collection. Bones/joints: No acute fracture. No dislocation. Soft tissues: Unremarkable. Vasculature: Unremarkable. No abdominal aortic aneurysm. Lymph nodes: Unremarkable. No enlarged lymph nodes. 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 Urgent surgical consult recommended. Tiny locules of extraluminal gas seen scattered throughout the abdomen and pelvis <MYCVCSECTION> Communications: 01/05/24 01:36 Call Doctor Regarding Pneumatosis, called Dr. Mancera on 01/04 01:36 (-04:00) 01/05/24 01:36 Call Doctor Regarding Pneumoperitoneum, new or unexpected, called Drr. Mancera on 01/04 01:36 (-04:00)
[2024-01-05 02:12] LABS: Anisocytosis Slight; Basophils % (A) 0 %; Eosinophils # (A) 0.1 k/uL (0-0.7); Eosinophils % (A) 1 %; HCT 32.7 % (34.0-46.0); HGB 10.8 gm/dL (11.4-16.0); Lymphocytes # (A) 1.7 k/uL (1.0-4.8); Lymphocytes % (A) 17 %; MCH 31.8 pg (25.0-35.0); MCHC 33.2 g/dL (31.0-37.0); Macrocytosis Slight; Mean Platelet Volume 7.3; Monocytes # (A) 0.4 k/uL (0-1.0); Monocytes % (A) 4 %; Neutrophils # (A) 7.9 k/uL (1.3-7.7); Neutrophils % (A) 77 %; Platelet Count 609 k/uL (150-450); WBC 10.2 k/uL (3.8-10.6)
[2024-01-05] MEDS: DEXTROSE 5%-0.45% NACL 1,000 ML IV ONE (02:13)
[2024-01-05] MEDS: SODIUM CHLORIDE 0.9% 1,000 ML IV STA (02:14)
[2024-01-05] MEDS: HYDROmorphone 0.5 MG/0.5 ML SYRINGE IVP STA (02:20)
[2024-01-05 02:28] LABS: ALT 55 U/L (4-34); AST 27 U/L (14-36); African American GFR (CKD) >90 (>60 ml/min/1.73 sqM); Albumin 3.9 g/dL (3.5-5.0); Alkaline Phosphatase 166 U/L (38-126); Blood Urea Nitrogen 32 mg/dL (7-17); Calcium 9.6 mg/dL (8.4-10.2); Carbon Dioxide 29 mmol/L (22-30); Chloride 93 mmol/L (98-107); Glucose 108 mg/dL (74-99); Non-African American GFR(CKD) >90 (>60 ml/min/1.73 sqM); Phosphorus 5.7 mg/dL (2.5-4.5); Total Bilirubin 0.6 mg/dL (0.2-1.3); Total Protein 6.2 g/dL (6.3-8.2)
[2024-01-05 02:29] LABS: INR 1.2 (<1.2); Partial Thromboplastin Time 25.7 sec (22.0-30.0); Prothrombin Time 12.4 sec (10.0-12.5)
[2024-01-05] MEDS: AMPICILLIN-SULBACTAM 3 GM in SODIUM CHLORIDE 0.9% 100 ML IVPB STA (04:05)
[2024-01-05] MEDS: HYDROmorphone 1 MG/ML 1 ML SYRINGE IVP STA (04:27)
[2024-01-05] MEDS ORDERED: ONDANSETRON 4 MG/2 ML VIAL IVP PRN ×2 (04:33→06:40)
[2024-01-05 04:39] LABS: Anion Gap 15 mmol/L; Potassium 4.3 mmol/L (3.5-5.1); Sodium 137 mmol/L (137-145)
[2024-01-05] MEDS: ONDANSETRON 4 MG/2 ML VIAL IVP STA (04:39)
[2024-01-05 05:51] LABS: T4, Free (Free Thyroxine) 1.17 ng/dL (0.78-2.19)
[2024-01-05] MEDS ORDERED: NALOXONE 0.4 MG/ML 1 ML VIAL IV PRN (06:40)
--- NOTE | 2024-01-05 07:06 | P.PN ---
Progress Note - Text Progress Note Date: 01/05/24 Notified of patient with complicated surgical history and diagnosis of pneumomatosis with recent discharge from [facility] less than 1 week ago. With recent medical and surgical history including interventions from [facility], recommend transfer to [facility] for continued care. Above discussed with ER provider.
[2024-01-05] MEDS: HYDROmorphone 1 MG/ML 1 ML SYRINGE IVP PRN (08:39)
--- NOTE | 2024-01-05 14:45 | P.HPIM ---
History of Present Illness H&P Date: 01/05/24 History of present illness: 68-year-old female with past medical history significant for GERD/reflux, history of suspected perforated ulcer 3 months ago, managed medically, recently discharged from [facility] last week with patient had exploratory laparotomy for evaluation of pneumoperitoneum and concern for ischemic colitis and per family no significant findings were noted on exploratory laparotomy and patient was discharged with regular p.o. intake and was advised to follow-up with rheumatology as outpatient for diagnosis of scleroderma. Patient now presented with generalized weakness, failure to thrive, poor appetite, nausea and vomiting. Patient and family reported that patient was recommended to go to subacute rehab at [facility] but decided to come home. Patient reported that her abdominal pain is unchanged since discharge from [facility]. Patient denied any chest pain or squeezing sensation, same was reported by family at bedside including patient's daughter and son-in-law. In the ED patient afebrile, Heart rate 84, respiratory rate 16, blood pressure 103/68, saturating 95% on room air. WBCs 10.2, hemoglobin 10.8, platelets 609. Absolute neutrophils 7.9. INR 1.2. Sodium 137, potassium 4.3, BUN 32, creatinine 0.54, GFR more than 90, lactate 1.3, AST 27, ALT 55, alkaline phosphatase 166, troponin negative. TSH was elevated 9.250. Free T41.17. CT abdomen pelvis showed pneumatosis coli involving numerous loops of small and large bowel consistent with bowel ischemia, urgent surgical consultation recommended. Tiny loculus of extraluminal gas seen scattered throughout the abd omen and pelvis. General surgery consultedrecommended transfer to [facility]. Patient and family including patient's daughter and son-in-law at bedside declined transfer to [facility], reported that CT findings are chronic and had a exploratory laparotomy at [facility] for the similar findings and was eventually discharged home to follow-up with rheumatology as outpatient. REVIEW OF SYSTEMS: CONSTITUTIONAL: No fever, no malaise, no fatigue. HEENT: No recent visual problems or hearing problems. Denied any sore throat. CARDIOVASCULAR: No chest pain, orthopnea, PND, no palpitations, no syncope. PULMONARY: No shortness of breath, no cough, no hemoptysis. GASTROINTESTINAL: No diarrhea, no nausea, no vomiting, mild abdominal pain, poor appetite. NEUROLOGICAL: No headaches, no weakness, no numbness. HEMATOLOGICAL: Denies any bleeding or petechiae. GENITOURINARY: Denies any burning micturition, frequency, or urgency. MUSCULOSKELETAL/RHEUMATOLOGICAL: Denies any joint pain, swelling, or any muscle pain. ENDOCRINE: Denies any polyuria or polydipsia. The rest of the 14-point review of systems is negative. PHYSICAL EXAMINATION: GENERAL: The patient is A&O x3, NAD HEENT: EOMI, Sclerae anicteric, Moist Mucous membranes Neck: Supple, Non tender, No JVD PULMONARY: Equal breath souds B/L, No wheezing, No crackles. CARDIOVASCULAR: S1, S2 present. No murmurs, rubs, or gallops. ABDOMEN: Soft, nontender, nondistended, surgical scarintact capri, no discharge or signs of infection. Normoactive bowel sounds. No guarding or rebound tenderness. MUSCULOSKELETAL: No edema, No cyanosis. No clubbing. Normal ROM. Intact peripheral pulses. EXTREMITIES: No cyanosis, clubbing, or pedal edema. NEUROLOGICAL: CN 2-12 grossly intact. No FND Assessment and plan: Pneumatosis coli: Failure to thrive: Recent exploratory laparotomy at [facility]: Probable scleroderma: Presented with poor appetite, failure to thrive, generalized weakness Patient reported abdominal pain is unchanged since discharge from [facility] Recently had a exploratory laparotomy at [facility] for workup of ischemic colitis, no significant finding per family Will obtain record from [facility] CT abdomen pelvis showed pneumatosis coli of numerous small and large bowel consistent with bowel ischemia General surgery consultedrecommended continued care at [facility] and transfer Lactate and WBC is normal, no hematochezia or rectal bleed. Patient and family declined transfer to [facility] and stated that she had the similar finding previously at [facility] and wanted to continue medical management at [facility] for now Continue IV fluids Zosyn Pain control. Nutrition consult evaluate for TPN Clear liquid diet Monitor labs and lactate Monitor with serial abdominal exam Outpatient follow-up with rheumatology at [facility] for reported scleroderma Deconditioning: Failure to thrive Nutrition consult Case management consult PT/OT consult Hypothyroidism: Elevated TSH Normal free T4 Start Synthroid DVT prophylaxis SCD Monitor vital signs and labs Continue telemetry monitoring Labs and medication were reviewed. Continue same treatment. Resume home medication. Further recommendations as per clinical course of the patient Dictation was produced using [employer] dictation software. please excuse any grammatical, word or spelling errors. Past Medical History Past Medical History: GERD/Reflux Additional Past Medical History / Comment(s): 40lb wt loss over the last year,poor appetite because stomach feels bloating after dinner, able to eat lunch,hx no longer needing to take b/p medications,Raynaud's, diarrea constipation. scleroderma History of Any Multi-Drug Resistant Organisms: None Reported Past Surgical History: Tubal Ligation Additional Past Surgical History / Comment(s): COLONOSCOPY, Past Anesthesia/Blood Transfusion Reactions: No Reported Reaction Additional Past Anesthesia/Blood Transfusion Reaction / Comment(s): no hx blood transfusion Past Psychological History: No Psychological Hx Reported Smoking Status: Current every day smoker Past Alcohol Use History: None Reported Past Drug Use History: None Reported - Past Family History Father Family Medical History: Cancer Additional Family Medical History / Comment(s): prostate kidney Mother Family Medical History: Cancer Additional Family Medical History / Comment(s): lung Medications and Allergies Home Medications Medication Instructions Recorded Confirmed Type Lansoprazole [Prevacid] 30 mg PO BID 03/02/23 01/05/24 History Acetaminophen Tab [Tylenol Tab] 500 mg PO Q6H PRN 01/05/24 01/05/24 History Empagliflozin [Jardiance] 10 mg PO DAILY 01/05/24 01/05/24 History Metoprolol Succinate [Metoprolol 25 mg PO DAILY 01/05/24 01/05/24 History Succinate ER] Naloxone HCl [Narcan] 4 mg NASAL ONCE PRN 01/05/24 01/05/24 History Spironolactone [Aldactone] 25 mg PO DAILY 01/05/24 01/05/24 History Valsartan [Diovan] 40 mg PO BID 01/05/24 01/05/24 History bisacodyL 10 mg RECTAL DAILY 01/05/24 01/05/24 History oxyCODONE HCL [OxyIR] 5 mg PO Q4H PRN 01/05/24 01/05/24 History traZODone HCL [Desyrel] 12.5 mg PO HS 01/05/24 01/05/24 History Allergies Allergy/AdvReac Type Severity Reaction Status Date / Time clindamycin AdvReac joint pain Verified 01/05/24 10:26 Physical Exam Vitals: Vital Signs Temp Pulse Resp BP Pulse Ox 01/05/24 13:42 18 01/05/24 12:03 94 16 96/69 01/05/24 11:24 108 H 16 92/75 01/05/24 09:23 95 01/05/24 09:03 105 H 16 107/66 01/05/24 07:30 97.9 F 113 H 18 113/72 96 01/05/24 07:00 107 H 16 100/67 95 01/05/24 05:01 110 H 16 91/65 95 01/05/24 04:00 89 18 117/87 95 01/05/24 02:14 106 H 18 107/69 95 01/04/24 22:39 97.4 F L 84 16 103/68 Intake and Output 01/04/24 01/05/24 01/05/24 22:59 06:59 14:59 Other: Weight 37.195 kg Results CBC & Chem 7: 01/05/24 01:50 01/05/24 01:50 Labs: Abnormal Lab Results - Last 24 Hours (Table) 01/05/24 01/05/24 01/05/24 Range/Units 01:50 01:50 01:50 RBC 3.40 L (3.80-5.40) m/uL Hgb 10.8 L (11.4-16.0) gm/dL Hct 32.7 L (34.0-46.0) % RDW 18.0 H (11.5-15.5) % Plt Count 609 H (150-450) k/uL Neutrophils # 7.9 H (1.3-7.7) k/uL INR 1.2 H (<1.2) Chloride 93 L (98-107) mmol/L BUN 32 H (7-17) mg/dL Glucose 108 H (74-99) mg/dL Plasma Lactic Acid Juan Ramon (0.7-2.0) mmol/L Phosphorus 5.7 H (2.5-4.5) mg/dL ALT 55 H (4-34) U/L Alkaline Phosphatase 166 H (38-126) U/L Total Protein 6.2 L (6.3-8.2) g/dL TSH 9.250 H (0.465-4.680) mIU/L 01/05/24 Range/Units 02:50 RBC (3.80-5.40) m/uL Hgb (11.4-16.0) gm/dL Hct (34.0-46.0) % RDW (11.5-15.5) % Plt Count (150-450) k/uL Neutrophils # (1.3-7.7) k/uL INR (<1.2) Chloride (98-107) mmol/L BUN (7-17) mg/dL Glucose (74-99) mg/dL Plasma Lactic Acid Juan Ramon 2.1 H* (0.7-2.0) mmol/L Phosphorus (2.5-4.5) mg/dL ALT (4-34) U/L Alkaline Phosphatase (38-126) U/L Total Protein (6.3-8.2) g/dL TSH (0.465-4.680) mIU/L
[2024-01-05] MEDS: PIPERACILLIN-TAZOBACTAM 3.375 GM in SODIUM CHLORIDE 0.9% 100 ML IVPB SCH (15:05)
--- NOTE | 2024-01-05 15:44 | P.GSCN ---
History of Present Illness Consult date: 01/05/24 History of present illness: Patient seen and evaluated. Patient's daughter at bedside that gives additional history of recent surgery at [facility] including disc concordant clinical exam findings with radiology findings. Daughter reports patient had an exploratory laparotomy without any findings of bowel. Patient was being monitored with TPN and fluids. Patient came back to the hospital due to failure to thrive. At this time, patient was given diet as tolerated upon discharge. Clinically, abdomen is soft nontender. No peritonitis. Well-healed midline incision with capri. No signs of infection. Prolonged discussion with the patient and her daughter at bedside including supportive measures. Patient may have diet as tolerated including high fatty meals such as [employer]. Will expand her diet to be outside food of her choice due to her overall low body weight. Antiemetics as needed with antispasmodics. No acute surgical invention needed. All questions were addressed. Shared decision making performed. Patient may stay at the facility with no additional surgical invention needed. Past Medical History Past Medical History: GERD/Reflux Additional Past Medical History / Comment(s): 40lb wt loss over the last year,poor appetite because stomach feels bloating after dinner, able to eat lunch,hx no longer needing to take b/p medications,Raynaud's, diarrea con stipation. scleroderma History of Any Multi-Drug Resistant Organisms: None Reported Past Surgical History: Tubal Ligation Additional Past Surgical History / Comment(s): COLONOSCOPY, Past Anesthesia/Blood Transfusion Reactions: No Reported Reaction Additional Past Anesthesia/Blood Transfusion Reaction / Comm: no hx blood transfusion Past Psychological History: No Psychological Hx Reported Smoking Status: Current every day smoker Past Alcohol Use History: None Reported Past Drug Use History: None Reported - Past Family History Father Family Medical History: Cancer Additional Family Medical History / Comment(s): prostate kidney Mother Family Medical History: Cancer Additional Family Medical History / Comment(s): lung Medications and Allergies Home Medications Medication Instructions Recorded Confirmed Type Lansoprazole [Prevacid] 30 mg PO BID 03/02/23 01/05/24 History Acetaminophen Tab [Tylenol Tab] 500 mg PO Q6H PRN 01/05/24 01/05/24 History Empagliflozin [Jardiance] 10 mg PO DAILY 01/05/24 01/05/24 History Metoprolol Succinate [Metoprolol 25 mg PO DAILY 01/05/24 01/05/24 History Succinate ER] Naloxone HCl [Narcan] 4 mg NASAL ONCE PRN 01/05/24 01/05/24 History Spironolactone [Aldactone] 25 mg PO DAILY 01/05/24 01/05/24 History Valsartan [Diovan] 40 mg PO BID 01/05/24 01/05/24 History bisacodyL 10 mg RECTAL DAILY 01/05/24 01/05/24 History oxyCODONE HCL [OxyIR] 5 mg PO Q4H PRN 01/05/24 01/05/24 History traZODone HCL [Desyrel] 12.5 mg PO HS 01/05/24 01/05/24 History Allergies Allergy/AdvReac Type Severity Reaction Status Date / Time clindamycin AdvReac joint pain Verified 01/05/24 10:26 Surgical - Exam Vital Signs Temp Pulse Resp BP 97.4 F L 84 16 103/68 01/04/24 22:39 01/04/24 22:39 01/04/24 22:39 01/04/24 22:39 Results - Labs 01/05/24 01:50 01/05/24 01:50 Abnormal Lab Results - Last 24 Hours (Table) 01/05/24 01/05/24 01/05/24 Range/Units 01:50 01:50 01:50 RBC 3.40 L (3.80-5.40) m/uL Hgb 10.8 L (11.4-16.0) gm/dL Hct 32.7 L (34.0-46.0) % RDW 18.0 H (11.5-15.5) % Plt Count 609 H (150-450) k/uL Neutrophils # 7.9 H (1.3-7.7) k/uL INR 1.2 H (<1.2) Chloride 93 L (98-107) mmol/L BUN 32 H (7-17) mg/dL Glucose 108 H (74-99) mg/dL Plasma Lactic Acid Juan Ramon (0.7-2.0) mmol/L Phosphorus 5.7 H (2.5-4.5) mg/dL ALT 55 H (4-34) U/L Alkaline Phosphatase 166 H (38-126) U/L Total Protein 6.2 L (6.3-8.2) g/dL TSH 9.250 H (0.465-4.680) mIU/L 01/05/24 Range/Units 02:50 RBC (3.80-5.40) m/uL Hgb (11.4-16.0) gm/dL Hct (34.0-46.0) % RDW (11.5-15.5) % Plt Count (150-450) k/uL Neutrophils # (1.3-7.7) k/uL INR (<1.2) Chloride (98-107) mmol/L BUN (7-17) mg/dL Glucose (74-99) mg/dL Plasma Lactic Acid Juan Ramon 2.1 H* (0.7-2.0) mmol/L Phosphorus (2.5-4.5) mg/dL ALT (4-34) U/L Alkaline Phosphatase (38-126) U/L Total Protein (6.3-8.2) g/dL TSH (0.465-4.680) mIU/L Diabetes panel 01/05/24 Range/Units 01:50 Sodium 137 (137-145) mmol/L Potassium 4.3 (3.5-5.1) mmol/L Chloride 93 L (98-107) mmol/L Carbon Dioxide 29 (22-30) mmol/L BUN 32 H (7-17) mg/dL Creatinine 0.54 (0.52-1.04) mg/dL Glucose 108 H (74-99) mg/dL Calcium 9.6 (8.4-10.2) mg/dL AST 27 (14-36) U/L ALT 55 H (4-34) U/L Alkaline Phosphatase 166 H (38-126) U/L Total Protein 6.2 L (6.3-8.2) g/dL Albumin 3.9 (3.5-5.0) g/dL Thyroid panel 01/05/24 Range/Units 01:50 TSH 9.250 H (0.465-4.680) mIU/L Calcium panel 01/05/24 Range/Units 01:50 Calcium 9.6 (8.4-10.2) mg/dL Phosphorus 5.7 H (2.5-4.5) mg/dL Albumin 3.9 (3.5-5.0) g/dL Pituitary panel 01/05/24 Range/Units 01:50 Sodium 137 (137-145) mmol/L Potassium 4.3 (3.5-5.1) mmol/L Chloride 93 L (98-107) mmol/L Carbon Dioxide 29 (22-30) mmol/L BUN 32 H (7-17) mg/dL Creatinine 0.54 (0.52-1.04) mg/dL Glucose 108 H (74-99) mg/dL Calcium 9.6 (8.4-10.2) mg/dL TSH 9.250 H (0.465-4.680) mIU/L Adrenal panel 01/05/24 Range/Units 01:50 Sodium 137 (137-145) mmol/L Potassium 4.3 (3.5-5.1) mmol/L Chloride 93 L (98-107) mmol/L Carbon Dioxide 29 (22-30) mmol/L BUN 32 H (7-17) mg/dL Creatinine 0.54 (0.52-1.04) mg/dL Glucose 108 H (74-99) mg/dL Calcium 9.6 (8.4-10.2) mg/dL Total Bilirubin 0.6 (0.2-1.3) mg/dL AST 27 (14-36) U/L ALT 55 H (4-34) U/L Alkaline Phosphatase 166 H (38-126) U/L Total Protein 6.2 L (6.3-8.2) g/dL Albumin 3.9 (3.5-5.0) g/dL
[2024-01-05] MEDS: METOPROLOL SUCCINATE (ER) 25 MG TAB.ER.24H PO SCH (15:54)
[2024-01-05] MEDS: traZODone HCL 50 MG TAB PO SCH (21:13)
[2024-01-05] MEDS: VALSARTAN 40 MG TAB PO SCH (21:20)
[2024-01-06] MEDS: LEVOTHYROXINE 25 MCG TAB PO SCH (07:37)
[2024-01-06 08:56] LABS: Basophils # (A) 0.02 X 10*3/uL (0.00-0.10); Basophils % (A) 0.3 %; Eosinophils # (A) 0.02 X 10*3/uL (0.04-0.35); Eosinophils % (A) 0.3 %; HCT 28.8 % (37.2-46.3); HGB 9.1 g/dL (12.0-15.0); Lymphocytes # (A) 1.48 X 10*3/uL (0.90-5.00); Lymphocytes % (A) 21.8 %; MCH 31.9 pg (27.0-32.0); MCHC 31.6 g/dL (32.0-37.0); MCV 101.1 FL (80.0-97.0); Mean Platelet Volume 9.7 FL (9.5-12.2); Monocytes # (A) 0.41 X 10*3/uL (0.20-1.00); NRBC Per 100 WBC 0 X 10*3/uL (0.00-0.01); Neutrophils # (A) 4.84 X 10*3/uL (1.80-7.70); Neutrophils % (A) 71.5 %; Platelet Count 388 X 10*3/uL (140-440); RBC 2.85 X 10*6/uL (4.10-5.20); RDW 19.9 % (11.5-14.5); WBC 6.78 X 10*3/uL (4.50-10.00)
[2024-01-06 08:58] LABS: BUN/Creat Ratio 94.33 Ratio (12.00-20.00); Blood Urea Nitrogen 28.3 mg/dL (9.0-27.0); Glucose 105 mg/dL (70-110)
[2024-01-06 08:59] LABS: ALT 37 U/L (8-44); AST 14 U/L (13-35); Albumin 3.2 g/dL (3.8-4.9); Albumin/Globulin Ratio 1.88 Ratio (1.60-3.17); Alkaline Phosphatase 118 U/L (41-126); Calcium 8.1 mg/dL (8.7-10.3); Carbon Dioxide 26.6 mmol/L (21.6-31.8); Chloride 103 mmol/L (96-109); Globulin 1.7 g/dL (1.6-3.3); Lipase 6 U/L (14-63); Magnesium 1.9 mg/dL (1.5-2.4); Phosphorus 3.5 mg/dL (2.4-5.1); Potassium 4.1 mmol/L (3.5-5.5); Sodium 139 mmol/L (135-145); Total Bilirubin 0.3 mg/dL (0.3-1.2); Total Protein 4.9 g/dL (6.2-8.2)
[2024-01-06] MEDS: SPIRONOLACTONE 25 MG TAB PO SCH (09:35)
--- NOTE | 2024-01-06 11:33 | P.PN ---
Subjective Progress Note Date: 01/06/24 CHIEF COMPLAINT: Abdominal pain HISTORY OF PRESENT ILLNESS: Patient continues to complain of abdominal bloating. Patient did have some abdominal discomfort after eating and just not feeling well after eating. She reports a decreased appetite. No bowel activity. Afebrile. WBC 6.78 Hgb 9.1 platelets 388 PHYSICAL EXAM: VITAL SIGNS: Reviewed. GENERAL: no acute distress. ABDOMEN: Distended. Incision site clean dry and intact NEUROLOGIC: Alert and oriented. Cranial nerves II through XII grossly intact. ASSESSMENT: 1. Abdominal distention 2. Possible scleroderma undergoing workup at [facility] 3. Recent exploratory laparotomy at [facility] about 2 weeks ago with no evidence of bowel ischemia per patient PLAN: -Recommend transfer to [facility] -Downgrade diet to n.p.o. -Continue supportive care -Add Tylenol scheduled for pain and continue as needed pain meds as well Physician Public Relations Assistant note has been reviewed by physician. Signing provider agrees with the documented findings, assessment, and plan of care. I have personally seen and examined the patient, reviewed the PIPE SETTER /PAs history, exam and MDM and agree with the assessment and plan as written. Based on total visit time, I have performed more than 50% of the visit. As above: Very unusual case. This patient with history of chronic dysmotility. Was seen in the ER apparently here a few weeks ago and had significantly abnormal CAT scan. She was transferred to [facility]. Apparently she was there for a few weeks. Underwent laparoscopy followed by laparotomy. At the time of surgery the family was being told that she would likely have ischemic bowel and required multiple surgeries with an open abdomen. After surg shailesh apparently the surgeon told the family that the bowel looked healthy. Patient's CAT scan now performed yesterday shows significant pneumatosis with dilated small bowel loops and gastric distention as well. Patient certainly looks much better than her CAT scan would suggest. She is having mild distention and mild tenderness. She does not appear toxic although appears ill of a chronic nature. Patient apparently missed her outpatient appointment with rheumatology at [facility] today. Being evaluated for possible scleroderma as the etiology for her cardiopulmonary issues, bowel dysmotility, and even possibly related to her pneumatosis. I am not comfortable with a diet given the CAT scan findings currently. Discussed this with the family. They were hoping she could have a 1 to 2-day hospital stay and make arrangements for rehab. I am not convinced that that will happen given the appearance on the CAT scan. I still think given the very unusual nature of this patient's illness and the CAT scan findings along with recent operative intervention that she should be transferred back to [facility] for completion of workup. Spoke with both sisters by phone. They are in agreement and will discuss further with the patient who initially was apparently refusing transfer. Objective - Vital Signs Vital signs: Vital Signs Temp 97.8 F 01/06/24 08:23 Pulse 98 01/06/24 08:23 Resp 17 01/06/24 08:23 BP 93/65 01/06/24 08:23 Pulse Ox 94 L 01/06/24 08:23 FiO2 Intake & Output 01/05/24 01/06/24 01/06/24 18:59 06:59 18:59 Weight 37.195 kg Other: Voiding Method External Catheter - Labs CBC & Chem 7: 01/06/24 06:27 01/06/24 06:27 Labs: Abnormal Lab Results - Last 24 Hours (Table) 01/06/24 01/06/24 Range/Units 06:27 06:27 RBC 2.85 L (4.10-5.20) X 10*6/uL Hgb 9.1 L (12.0-15.0) g/dL Hct 28.8 L (37.2-46.3) % MCV 101.1 H (80.0-97.0) FL MCHC 31.6 L (32.0-37.0) g/dL RDW 19.9 H (11.5-14.5) % Eosinophils # 0.02 L (0.04-0.35) X 10*3/uL BUN 28.3 H (9.0-27.0) mg/dL Creatinine 0.3 L (0.6-1.5) mg/dL BUN/Creatinine Ratio 94.33 H (12.00-20.00) Ratio Calcium 8.1 L (8.7-10.3) mg/dL Total Protein 4.9 L (6.2-8.2) g/dL Albumin 3.2 L (3.8-4.9) g/dL Lipase 6 L (14-63) U/L
[2024-01-06 12:49] VITALS: RESP 16
[2024-01-06] MEDS: ACETAMINOPHEN TAB 500 MG TAB PO SCH (13:31)
[2024-01-06 14:26] VITALS: BMI 15.0
[2024-01-06 15:18] LABS: Appearance,Urine Cloudy (Clear); Bilirubin,Urine Negative (Negative); Blood,Urine Negative (Negative); Color,Urine Yellow; Glucose,Urine (UA) 3+ (Negative); Ketones,Urine Trace (Negative); Leukocyte Esterase,Urine Negative (Negative); Mucus,Urine Rare /hpf; Nitrite,Urine Negative (Negative); PH, Urine 5.5 (5.0-8.0); Protein,Urine Trace (Negative); RBC,Urine 5 /hpf (0-5); Specific Gravity,Urine 1.037 (1.001-1.035); Squamous Epithelial Cell,Urine 1 /hpf (0-4); Urobilinogen,Urine <2.0 mg/dL (<2.0); WBC,Urine 5 /hpf (0-5)
--- NOTE | 2024-01-06 19:15 | P.DS ---
Providers Date of admission: 01/05/24 06:41 Expected date of discharge: 01/06/24 Attending physician: Lela Mo Consults: 01/05/24 06:40 Consult Physician Routine Consulting Provider: Luis Maddox Reason/Comments: known Do you want consulting provider notified?: Yes Primary care physician: Irving Villalobos [facility] Course: Final diagnosis Pneumatosis coli as CT reports numerous small and large bowel consistent with bowel ischemia Failure to thrive with generalized weakness and debility Recent exploratory laparotomy at [facility] M: Per patient no evidence of ischemic bowel during surgery Probable scleroderma: Being worked up by die inspector out of [facility] History of Hypothyroidism with an elevated TSH, T4 is normal Severe protein calorie malnutrition with a BMI of 15.0 GI prophylaxis DVT prophylaxis Full code Discharge disposition Patient is being transferred in a stable condition with guarded prognosis to [facility] for tertiary treatment and has been accepted by Dr. Jihan Patel surgical services. Currently awaiting a bed and transfer team will contact the unit once a bed is available. Patient will follow-up with Dr. Villalobos in the outpatient setting upon discharge. Patient is to continue n.p.o. status per surgery and also on IV Zosyn currently prophylactically. Total time taken is greater than 35 minutes. Hospital course This is a 68-year-old female who was recently admitted with abdominal pain that she reports has been chronic and ongoing since her recent hospitalization and discharged from [facility] 2 weeks ago. Patient had exploratory laparotomy and was told there was no evidence of ischemic bowel at that time. Patient did have a CT here that was reporting multiple numerous small and large bowel concerns for bowel ischemia. Patient with significant cachexia and weakness and medical debility reports she was offered to go to rehab on discharge from [facility] although refused reporting she felt better. Patient got home and felt overwhelmed and was unable to perform ADLs or care for herself. Patient was brought here by family to seek out rehab placement for continued strength and mobility. Patient was evaluated by surgery here and evaluated the CT scan and patient having continued abdominal distention and inability to tolerate oral intake with severe muscle wasting noted recommended n.p.o. and transfer to tertiary treatment center [facility] where she was just discharged. Initially patient is refusing transfer although reporting she wants to continue to fight to live. Patient was discussed with about possible hospice and she does not want this at this time. Discussed with daughter at the bedside and patient will be agreeable for transfe r for surgical evaluation. Transfer was initiated and [facility] has accepted although awaiting a bed. Dr. Jihan Patel surgical services has accepted the patient. Please refer to other consultation notes for further HPI. Currently no reports of chest pain, shortness of breath, or palpitations. Patient is afebrile. No reports of nausea or vomiting although patient does report even after ice chips she is having abdominal discomfort. Overall prognosis is guarded and patient will be transferred to [facility] Physical exam: Gen: This is a 68-year-old female who is extremely ill-appearing, emaciated, cachectic, elderly appearing, alert and oriented x 2 HEENT: Head is atraumatic, normocephalic. Pupils equal, round. Sclerae is anicteric. NECK: Supple. No JVD. No lymphadenopathy. No thyromegaly. LUNGS: Diminished breath sounds bilaterally otherwise clear to auscultation. No wheezes or rhonchi. No intercostal retractions. HEART: Regular rate and rhythm. No murmur. ABDOMEN: Soft. Hypoactive bowel sounds, mildly tender around the surgical site of the mid abdomen, slightly more distended. EXTREMITIES: No pedal edema. No calf tenderness. NEUROLOGICAL: Patient is awake, alert and oriented x2. Cranial nerves 2 through 12 are grossly intact. Diffusely weak Please refer to medication reconciliation sheet for a list of medications. The impression and plan of care has been dictated by Brooklyn Fernández, Nurse Practitioner as directed. Dr. Marvin MD I have performed a history and examination and MDM of this patient, discussed the same with the dictator, and agree with the dictator's assessment and plan as written ,documented as a scribe. Based on total visit time, I have performed more than 50% of the visit. Patient Condition at Discharge: Fair Plan - Discharge Summary Discharge Rx Participant: No New Discharge Prescriptions: No Action Lansoprazole [Prevacid] 30 mg PO BID Acetaminophen Tab [Tylenol Tab] 500 mg PO Q6H PRN PRN Reason: Pain Metoprolol Succinate [Metoprolol Succinate ER] 25 mg PO DAILY Naloxone HCl [Narcan] 4 mg NASAL ONCE PRN PRN Reason: SUSPECTED OPIOID OVERDOSE oxyCODONE HCL [OxyIR] 5 mg PO Q4H PRN PRN Reason: Pain Valsartan [Diovan] 40 mg PO BID bisacodyL 10 mg RECTAL DAILY Empagliflozin [Jardiance] 10 mg PO DAILY Spironolactone [Aldactone] 25 mg PO DAILY traZODone HCL [Desyrel] 12.5 mg PO HS Discharge Medication List Lansoprazole [Prevacid] 30 mg PO BID 03/02/23 [History] Acetaminophen Tab [Tylenol Tab] 500 mg PO Q6H PRN 01/05/24 [History] Empagliflozin [Jardiance] 10 mg PO DAILY 01/05/24 [History] Metoprolol Succinate [Metoprolol Succinate ER] 25 mg PO DAILY 01/05/24 [History] Naloxone HCl [Narcan] 4 mg NASAL ONCE PRN 01/05/24 [History] Spironolactone [Aldactone] 25 mg PO DAILY 01/05/24 [History] Valsartan [Diovan] 40 mg PO BID 01/05/24 [History] bisacodyL 10 mg RECTAL DAILY 01/05/24 [History] oxyCODONE HCL [OxyIR] 5 mg PO Q4H PRN 01/05/24 [History] traZODone HCL [Desyrel] 12.5 mg PO HS 01/05/24 [History] Follow up Appointment(s)/Referral(s): Irving Villalobos DO [Primary Care Provider] - 1-2 days
[2024-01-06] MEDS: DEXTROSE 5%-0.9% NACL 1,000 ML IV SCH (19:57)
[2024-01-06] MEDS ORDERED: ONDANSETRON 4 MG/2 ML VIAL IVP PRN (21:52)
[2024-01-07 08:30] LABS: Basophils # (A) 0.02 X 10*3/uL (0.00-0.10); Basophils % (A) 0.4 %; Eosinophils # (A) 0.08 X 10*3/uL (0.04-0.35); Eosinophils % (A) 1.5 %; HGB 8.1 g/dL (12.0-15.0); Lymphocytes # (A) 1.55 X 10*3/uL (0.90-5.00); Lymphocytes % (A) 29.7 %; MCH 32.1 pg (27.0-32.0); MCHC 32.4 g/dL (32.0-37.0); MCV 99.2 FL (80.0-97.0); Mean Platelet Volume 9.6 FL (9.5-12.2); Monocytes # (A) 0.56 X 10*3/uL (0.20-1.00); Monocytes % (A) 10.7 %; NRBC Per 100 WBC 0 X 10*3/uL (0.00-0.01); Neutrophils % (A) 57.5 %; Platelet Count 284 X 10*3/uL (140-440); RBC 2.52 X 10*6/uL (4.10-5.20); RDW 19.2 % (11.5-14.5); WBC 5.22 X 10*3/uL (4.50-10.00)
[2024-01-07 08:49] LABS: Magnesium 1.7 mg/dL (1.5-2.4)
[2024-01-07 08:55] LABS: ALT 39 U/L (8-44); AST 22 U/L (13-35); Albumin 2.6 g/dL (3.8-4.9); Albumin/Globulin Ratio 1.86 Ratio (1.60-3.17); Alkaline Phosphatase 95 U/L (41-126); BUN/Creat Ratio 93.33 Ratio (12.00-20.00); Calcium 7.5 mg/dL (8.7-10.3); Carbon Dioxide 20.4 mmol/L (21.6-31.8); Chloride 104 mmol/L (96-109); Globulin 1.4 g/dL (1.6-3.3); Glucose 76 mg/dL (70-110); Potassium 3.7 mmol/L (3.5-5.5); Sodium 134 mmol/L (135-145); Total Bilirubin 0.2 mg/dL (0.3-1.2)
--- NOTE | 2024-01-07 10:53 | P.PN ---
Subjective Progress Note Date: 01/07/24 CHIEF COMPLAINT: Abdominal pain HISTORY OF PRESENT ILLNESS: Patient has not met with [facility]. She has made decision to proceed with discharge with [facility]. PHYSICAL EXAM: VITAL SIGNS: Reviewed. GENERAL: no acute distress. ABDOMEN: Distended . ASSESSMENT: 1. Abdominal distention. Pneumatosis noted on CT scan 2. Possible scleroderma undergoing workup at [facility] 3. Recent exploratory laparotomy at [facility] about 2 weeks ago with no evidence of bowel ischemia per patient PLAN: -Patient and family have decided to proceed with hospice and being discharged with [facility] today Physician Glue Cook note has been reviewed by physician. Signing provider agrees with the documented findings, assessment, and plan of care. 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 Based on total visit time, I have performed more than 50% of the visit. As above: Patient feels well today. Denies any significant abdominal discomfort. Yesterday there was consideration for transfer back to [facility]. Patient felt to have poor prognosis regardless of definitive diagnosis. Options for hospice apparently discussed with medicine and the patient has decided to go to the hospice house at this time. She was started back on a diet. Will sign off. Please recontact if needed. Objective - Vital Signs Vital signs: Vital Signs Temp 98 F 01/07/24 02:00 Pulse 82 01/07/24 10:30 Resp 16 01/07/24 07:12 BP 103/66 01/07/24 10:30 Pulse Ox 91 L 01/07/24 07:12 FiO2 Intake & Output 01/06/24 01/07/24 01/07/24 18:59 06:59 18:59 Intake Total 860 Balance 860 Weight 37.195 kg Intake: Intake, IV Titration 800 Amount Dextrose 5%-0.9% NaCl 1, 700 000 ml @ 60 mls/hr IV . [id number] MICHAEL Rx#:[id number] Piperacillin-Tazobactam 3 100 .375 gm In Sodium Chloride 0.9% 100 ml @ 25 mls/hr IVPB Q8HR MICHAEL Rx# :[id number] Oral 60 Other: Voiding Method External Catheter Bedside Commode # Voids 2 3 - Labs CBC & Chem 7: 01/07/24 03:40 01/07/24 03:40 Labs: Abnormal Lab Results - Last 24 Hours (Table) 01/06/24 01/07/24 01/07/24 Range/Units 14:55 03:40 03:40 RBC 2.52 L (4.10-5.20) X 10*6/uL Hgb 8.1 L (12.0-15.0) g/dL Hct 25.0 L (37.2-46.3) % MCV 99.2 H (80.0-97.0) FL MCH 32.1 H (27.0-32.0) pg RDW 19.2 H (11.5-14.5) % Sodium 134 L (135-145) mmol/L Carbon Dioxide 20.4 L (21.6-31.8) mmol/L BUN 28.0 H (9.0-27.0) mg/dL Creatinine 0.3 L (0.6-1.5) mg/dL BUN/Creatinine Ratio 93.33 H (12.00-20.00) Ratio Calcium 7.5 L (8.7-10.3) mg/dL Total Bilirubin 0.2 L (0.3-1.2) mg/dL Total Protein 4.0 L (6.2-8.2) g/dL Albumin 2.6 L (3.8-4.9) g/dL Globulin 1.4 L (1.6-3.3) g/dL Urine Appearance Cloudy H (Clear) Ur Specific [place] 1.037 H (1.001-1.035) Urine Protein Trace H (Negative) Urine Glucose (UA) 3+ H (Negative) Urine Ketones Trace H (Negative) Urine Mucus Rare H (None) /hpf
[2024-01-07 12:39] VITALS: BP 95/63; PULSE 81; TEMP 97.5
--- NOTE | 2024-01-11 09:50 | P.DS ---
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 History of Hypothyroidism with an elevated TSH, T4 is normal Severe protein calorie malnutrition with a BMI of 15.0 GI prophylaxis DVT prophylaxis Full code Discharge disposition Patient is being discharged ed in a stable condition with guarded prognosis to [facility]. Transfer to [facility] was canceled per patient request after discussing and being evaluated by [facility]. Patient and family are agreeable and would like to go to hospice [place] today. Total time taken is greater than 35 minutes. Hospital course This is a 68-year-old female who was recently admitted with abdominal pain that she reports has been chronic and ongoing since her recent hospitalization and di scharged from [facility] 2 weeks ago. Patient had exploratory laparotomy and was told there was no evidence of ischemic bowel at that time. Patient did have a CT here that was reporting multiple numerous small and large bowel concerns for bowel ischemia. Patient with significant cachexia and weakness and medical debility reports she was offered to go to rehab on discharge from [facility] although refused reporting she felt better. Patient got home and felt overwhelmed and was unable to perform ADLs or care for herself. Patient was brought here by family to seek out rehab placement for continued strength and mobility. Patient was evaluated by surgery here and evaluated the CT scan and patient having continued abdominal distention and inability to tolerate oral intake with severe muscle wasting noted recommended n.p.o. and transfer to tertiary treatment center [facility] where she was just discharged. Initially patient is refusing transfer although reporting she wants to continue to fight to live. Patient was discussed with about possible hospice and she does not want this at this time. Discussed with daughter at the bedside and patient will be agreeable for transfer for surgical evaluation. Transfer was initiated and [facility] has accepted although awaiting a bed. Dr. Jihan Patel surgical services has accepted the patient. Please refer to other consultation notes for further HPI. Currently no reports of chest pain, shortness of breath, or palpitations. Patient is afebrile. No reports of nausea or vomiting although patient does report even after ice chips she is having abdominal discomfort. Overall prognosis is poor and guarded and patient will be going to [facility] today 01/07/2024 Update from hospice evaluation with [facility]. Patient refused to be transferred to [facility] and the transfer team was contacted canceling the transfer for further surgical evaluation. Patient does not want any further intervention and has met with hospice and will be going to [facility]. Arrangements being made and patient will be transported there today. Patient and family at the bedside with concerns that were answered to the best of our ability and are agreeable with this decision. Physical exam: Gen: This is a 68-year-old female who is extremely ill-appearing, emaciated, cachectic, elderly appearing, alert and oriented x 2 HEENT: Head is atraumatic, normocephalic. Pupils equal, round. Sclerae is anicteric. NECK: Supple. No JVD. No lymphadenopathy. No thyromegaly. LUNGS: Diminished breath sounds bilaterally otherwise clear to auscultation. No wheezes or rhonchi. No intercostal retractions. HEART: Regular rate and rhythm. No murmur. ABDOMEN: Soft. Hypoactive bowel sounds, mildly tender around the surgical site of the mid abdomen, slightly more distended. EXTREMITIES: No pedal edema. No calf tenderness. NEUROLOGICAL: Patient is awake, alert and oriented x2. Cranial nerves 2 through 12 are grossly intact. Diffusely weak Please refer to medication reconciliation sheet for a list of medications. The impression and plan of care has been dictated by Brooklyn Fernández, Nurse Practitioner as directed. Dr. Marvin MD I have performed a history and examination and MDM of this patient, discussed the same with the dictator, and agree with the dictator's assessment and plan as written ,documented as a scribe. Based on total visit time, I have performed more than 50% of the visit. Patient Condition at Discharge: Fair Plan - Discharge Summary Discharge Rx Participant: No New Discharge Prescriptions: New Levothyroxine Sodium [Synthroid] 25 mcg PO DAILY@0630 tab Continue Lansoprazole [Prevacid] 30 mg PO BID Acetaminophen Tab [Tylenol] 500 mg PO Q6H PRN PRN Reason: Pain Metoprolol Succinate [Metoprolol Succinate ER] 25 mg PO DAILY Naloxone HCl [Narcan] 4 mg NASAL ONCE PRN PRN Reason: SUSPECTED OPIOID OVERDOSE oxyCODONE HCL [OxyIR] 5 mg PO Q4H PRN PRN Reason: Pain Valsartan [Diovan] 40 mg PO BID bisacodyL 10 mg RECTAL DAILY Empagliflozin [Jardiance] 10 mg PO DAILY Spironolactone [Aldactone] 25 mg PO DAILY traZODone HCL [Desyrel] 12.5 mg PO HS Discharge Medication List Lansoprazole [Prevacid] 30 mg PO BID 03/02/23 [History] Acetaminophen Tab [Tylenol] 500 mg PO Q6H PRN 01/05/24 [History] Empagliflozin [Jardiance] 10 mg PO DAILY 01/05/24 [History] Metoprolol Succinate [Metoprolol Succinate ER] 25 mg PO DAILY 01/05/24 [History] Naloxone HCl [Narcan] 4 mg NASAL ONCE PRN 01/05/24 [History] Spironolactone [Aldactone] 25 mg PO DAILY 01/05/24 [History] Valsartan [Diovan] 40 mg PO BID 01/05/24 [History] bisacodyL 10 mg RECTAL DAILY 01/05/24 [History] oxyCODONE HCL [OxyIR] 5 mg PO Q4H PRN 01/05/24 [History] traZODone HCL [Desyrel] 12.5 mg PO HS 01/05/24 [History] Levothyroxine Sodium [Synthroid] 25 mcg PO DAILY@0630 tab 01/07/24 [Rx] Follow up Appointment(s)/Referral(s): Irving Villalobos DO [Primary Care Provider] - 1-2 days Patient Instructions/Handouts: Hospice (DC) Activity/Diet/Wound Care/Special Instructions: Patient is going [facility] Discharge Disposition: DISCH TO HOSPICE [facility]
== END 2024-01-07 13:48 | disposition hospice, inpatient (51) | DRG 393 ==
LOC: EC 22:29 → 4SSUR 01-05 06:41 → 5NMEDONC 01-05 20:33
PROVIDERS: ADMIT Hospitalist; ATTEND Hospitalist
PROC: 06HY33Z Insertion of Infusion Device into Lower Vein, Percutaneous Approach (ICD-10-PCS; principal; 2024-01-04)
DX: K55.9 Vascular disorder of intestine, unspecified (principal); E43 Unspecified severe protein-calorie malnutrition; Z68.1 Body mass index [BMI] 19.9 or less, adult; M34.9 Systemic sclerosis, unspecified; E88.A Wasting disease (syndrome) due to underlying condition; R62.7 Adult failure to thrive; E03.9 Hypothyroidism, unspecified; K63.89 Other specified diseases of intestine; F17.210 Nicotine dependence, cigarettes, uncomplicated; R53.81 Other malaise; Z79.84 Long term (current) use of oral hypoglycemic drugs; Z79.890 Hormone replacement therapy; Z79.899 Other long term (current) drug therapy; Z88.1 Allergy status to other antibiotic agents
CPT/HCPCS: 36415; 36556; 71046; 74176; 80053; 81001; 83605; 83690; 83735; 84100; 84439; 84443; 84484; 85025; 85610; 85730; 86140; 86850; 86900; 86901; 93005; 96361; 96365; 96366; 96367; 96375; 96376; 99291